=== PATIENT | male | born 1940 | race Hispanic/Latino ===

== ENCOUNTER 2018-10-21 10:30 | Inpatient (IN) | payer MEDICARE ==
[2018-10-21 10:39] VITALS: BMI 24.7
--- NOTE | 2018-10-21 10:39 | ED PDOC ---
Arrival/HPI - General Chief Complaint: Lower Extremity Problem/Injury Time Seen by Provider: 10/21/18 10:35 Historian: Patient - History of Present Illness Narrative History of Present Illness (Text): 10/21/18 10:38 77 y/o male with PMH of HTN presents to the ED c/o x bilateral lower extremity edema x 1 month. Also c/o pain and wounds to left lower extremity with drainage for the last week. Pt lives alone and has difficulty taking care of himself. Has not changed his socks in approximately 1 week. Admits to compliance with m edications but states he ran out of his unknown BP med, last dose yesterday. Denies fever, chills, numbness, weakness, paresthesias, dizziness, nausea, vomiting, chest pain, SOB, headache, vision changes, or any other associated symptoms. Past Medical History - Provider Review Nursing Documentation Reviewed: Yes - Infectious Disease Hx of Infectious Diseases: None - Tetanus Immunization Tetanus Immunization: Unknown - Cardiac Hx Hypertension: Yes - Neurological Hx Transient Ischemic Attacks (TIA): Yes (about one yr ago, blurred vision resolved) - Integumentary Other/Comment: 1cm x .5 cm hard growth on left cheek, 1.5cm round brown discoloration to left holiness, denies skin ca. Ball of left foot 1cm x .5 cm callous, browm discolored skin to right leg below knee, behind both ankles brown dry skin, brown dry skin between toes on both feet - Musculoskeletal/Rheumatological Hx Falls: No - Psychiatric Hx Psychophysiologic Disorder: No Hx Anxiety: No Hx Bipolar Disorder: No Hx Depression: No Hx Emotional Abuse: No Hx Hallucinations: No Hx Panic Disorder: No Hx Paranoia: No Hx Post Traumatic Stress Disorder: No Hx Psychosis: No Hx Physical Abuse: No Hx Schizophrenia: No Hx Sexual Abuse: No Hx Substance Use: No - Past Surgical History Past Surgical History: No Previous - Anesthesia Hx Anesthesia: No Hx Anesthesia Reactions: No Hx Malignant Hyperthermia: No - Suicidal Assessment Feels Threatened In Home Enviroment: No Family/Social History - Physician Review Nursing Documentation Reviewed: Yes Family/Social History: No Known Family HX Smoking Status: Never Smoked Hx Alcohol Use: No Hx Substance Use: No Hx Substance Use Treatment: No Allergies/Home Meds Allergies/Adverse Reactions: Allergies No Known Allergies Allergy (Verified 10/21/18 10:39) Home Medications: Home Meds Medication Instructions Recorded Confirmed Unobtainable 10/21/18 10/21/18 Review of Systems - Review of Systems Constitutional: Normal. absent: Fevers Eyes: Normal. absent: Vision Changes Respiratory: Normal. absent: SOB, Cough Cardiovascular: Normal. absent: Chest Pain, Palpitations, Syncope Gastrointestinal: Normal. absent: Abdominal Pain, Nausea, Vomiting, Appetite Changes Genitourinary Male: Normal. absent: Hematuria, Urinary Output Changes Musculoskeletal: Other (left leg pain) Skin: Ulcer, Other (swelling) Neurological: Normal. absent: Headache, Dizziness Physical Exam Vital Signs Reviewed: Yes Temperature: Afebrile Blood Pressure: Hypertensive Pulse: Regular Respiratory Rate: Normal Appearance: Positive for: Non-Toxic, Unkept, Uncomfortable Pain Distress: None Mental Status: Positive for: Alert and Oriented X 3 - Systems Exam Head: Present: Atraumatic, Normocephalic Pupils: Present: PERRL Extroacular Muscles: Present: EOMI, Other Conjunctiva: Present: Normal Mouth: Present: Moist Mucous Membranes Neck: Present: Normal Range of Motion. No: Meningeal Signs Respiratory/Chest: Present: Clear to Auscultation, Good Air Exchange. No: Respiratory Distress, Accessory Muscle Use Cardiovascular: Present: Regular Rate and Rhythm, Normal S1, S2, Peripheal Pulses Present, Other (2/6 systolic murmur over LUSB) Abdomen: Present: Normal Bowel Sounds. No: Tenderness, Distention, Peritoneal Signs, Rebound, Guarding Back: Present: Normal Inspection. No: CVA Tenderness Upper Extremity: Present: Normal Inspection, Normal ROM, NORMAL PULSES, Neurovascularly Intact, Capillary Refill < 2s. No: Cyanosis, Edema, Temperature Abnormalties Lower Extremity: Present: Edema (bilateral peripheral edema), NORMAL PULSES (pulses diminished bilaterally), Normal ROM, Tenderness (left dorsal foot and anterior tibia), Erythema (bilateral distal lower leg and feet; circumferential), Temperature Abnormalties (increased warmth to bilateral lower legs with associated erythema), Neurovascularly Intact, Capillary Refill < 2 s, Other (scaling to bilateral legs secondary to PVD and poor hygiene; maceration between toes bilaterall; onychomycosis bilaterally; multiple small ulcerations to bilateral lower legs L>R; left lower extremity weeping). No: Normal Inspection, CALF TENDERNESS Neurological: Present: GCS=15, Speech Normal, Motor Func Grossly Intact, Normal Sensory Function, Gait Normal Skin: Present: Warm, Dry, Normal Color. No: Rashes Psychiatric: Present: Alert, Oriented x 3, Normal Insight, Normal Concentration, Normal Affect, Normal Mood Medical Decision Making ED Course and Treatment: 10/21/18 11:21 Initial Plan: * CBC, CMP * Coags * UA * Venous Duplex Bilateral Lower Extremity * Podiatry consult * Labetalol 11:10 Spoke with podiatry, who will come to evaluate pt in ED, Dr. Matthews. 13:00 Bloodwork reviewed, unremarkable. No leukocytosis. BNP and troponin wnl. Venous duplex prelim read negative for DVT Pt evaluated by Cecil, podiatry resident who performed skin cleaning and dressing. PRITI ordered to evaluate for vascular status. Advised Jean Carlos and Jamari. Blood cultures ordered. 13:50 Patient's pressure unchanged with 20mg IV Labetalol, will give 10mg Hydralazine. Pt continues to be asymptomatic. No headache, dizziness, vision changes, nausea, vomiting, abdominal pain, numbness, weakness, paresthesias, or any other associated symptoms. Only c/o left leg pain. Spoke with hospitalist, Dr. Llanes who accepted patient for admission. Asked for ICU consult secondary to hypertension. Pt updated with change in disposition. EKG shows NSR at 79; no STEMI, nonspecific changes 14:03 ICU consult called, Dr. Rodas. Recommends nicardipine drip; will come to ED to evaluate patient. 14:10 Pt accepted to ICU with diagnosis of hypertensive urgency and cellulitis. - Lab Interpretations Lab Results: 10/21/18 11:20 10/21/18 11:20 Lab Results 10/21/18 11:30: Troponin I < 0.01 10/21/18 11:20: Sodium 144, Potassium 4.7, Chloride 108 H, Carbon Dioxide 29, Anion Gap 12, BUN 19, Creatinine 1.4, Est GFR ( Amer) 60, Est GFR (Non-Af Amer) 49, Random Glucose 85, Calcium 9.5, Phosphorus 3.1, Magnesium 2.2, Total Bilirubin 0.6, AST 20, ALT 20, Alkaline Phosphatase 81, NT-Pro-B Natriuret Pep 433, Total Protein 7.3, Albumin 4.2, Globulin 3.2, Albumin/Globulin Ratio 1.3 10/21/18 11:20: PT 12.5, INR 1.11, APTT 35.0 10/21/18 11:20: WBC 7.5, RBC 5.01, Hgb 14.1, Hct 43.0, MCV 85.8, MCH 28.1, MCHC 32.8, RDW 13.1, Plt Count 221, MPV 9.8, Neut % (Auto) 75.0 H, Lymph % (Auto) 13.4 L, [place] % (Auto) 8.5 H, Eos % (Auto) 3.0, Baso % (Auto) 0.1, Lymph # (Auto) 1.0 L, [place] # (Auto) 0.6, Eos # (Auto) 0.2, Baso # (Auto) 0.01, Absolute Neuts (auto) 5.59 I have reviewed the lab results: Yes Interpretation: All labs normal - EKG Interpretation EKG Interpretation (Text): 10/21/18 14:10 Rate 79; NSR; Normal Intervals; No STEMI, nonspecific ST/T wave changes Interpreted by ED Physician: Yes Type: 12 lead EKG Disposition/Present on Arrival - Present on Arrival Any Indicators Present on Arrival: No History of DVT/PE: No History of Uncontrolled Diabetes: No Urinary Catheter: No History Surgical Site Infection Following: None - Disposition Have Diagnosis and Disposition been Completed?: Yes Diagnosis: HTN (hypertension), Cellulitis Disposition: HOSPITALIZED Disposition Time: 14:00 Patient Plan: Admission Patient Problems: Current Active Problems Problem Status Onset Cellulitis Acute HTN (hypertension) Acute Condition: GUARDED
[2018-10-21 11:29] LABS: BASO # 0.01 K/mm3 (0.0-2.0); BASO % 0.1 % (0.0-3.0); EOS # 0.2 (0.0-0.7); HEMOGLOBIN 14.1 g/dL (14.0-18.0); LYMPH % 13.4 % (22.0-35.0); MEAN CELL VOLUME 85.8 fl (80.0-105.0); MEAN CORPUSCULAR HEMOGLOBIN 28.1 pg (25.0-35.0); MEAN CORPUSCULAR HGB CONC 32.8 g/dl (31.0-37.0); MEAN PLATELET VOLUME 9.8 fl (7.0-11.0); MONO # 0.6 (0.1-0.6); MONO % 8.5 % (1.0-6.0); RBC 5.01 10^6/uL (3.5-6.1); RED CELL DISTRIBUTION WIDTH 13.1 % (11.5-14.5); WHITE BLOOD COUNT 7.5 10^3/uL (4.5-11.0)
[2018-10-21] MEDS ORDERED: Labetalol 5mg/ml (4ml) IV STA (11:33)
[2018-10-21 11:37] LABS: INR 1.11; PROTHROMBIN TIME 12.5 SECONDS (9.4-12.5)
[2018-10-21 11:40] LABS: ALB/GLOB RATIO 1.3 (1.1-1.8); ALBUMIN 4.2 g/dL (3.0-4.8); CALCIUM 9.5 mg/dL (8.4-10.5)
[2018-10-21] MEDS ORDERED: Piperacillin/Tazobact 3.375 gm 100 ML IVPB STA (12:06)
[2018-10-21] MEDS ORDERED: Vancomycin 1gm in NS 250ml 1 GM/250 ML BAG IVPB STA (12:06)
--- NOTE | 2018-10-21 13:52 | CP.PCM.CON ---
<Cecil Cook - Last Filed: 10/22/18 10:23> History of Present Illness - History of Present Illness History of Present Illness: Podiatry consult note for Drs. Matthews/Karin 77 y/o male with PMHx of HTN and Diabetes presents to the ED c/o x bilateral lower extremity edema x 1 month. Patient evaluated with Dr. Frazier this morning. Patient states he lives alone at home and is unable to take care of his legs and feet. Patient also states he noted drainage from his feet at home. Patient denie s any fever, chills, numbness, weakness, paresthesias, dizziness, nausea, vomiting, chest pain, SOB, or any other associated symptoms. Review of Systems - Review of Systems All systems: reviewed and no additional remarkable complaints except Review of Systems: As per HPI Past Patient History - Infectious Disease Hx of Infectious Diseases: None - Tetanus Immunizations Tetanus Immunization: Unknown - Past Social History Smoking Status: Never Smoked - CARDIAC Hx Hypertension: Yes - NEUROLOGICAL Hx Transient Ischemic Attacks (TIA): Yes (about one yr ago, blurred vision resolved) - ENDOCRINE/METABOLIC Hx Diabetes Mellitus Type 2: Yes - INTEGUMENTARY Other/Comment: 1cm x .5 cm hard growth on left cheek, 1.5cm round brown discoloration to left quaker, denies skin ca. Ball of left foot 1cm x .5 cm callous, browm discolored skin to right leg below knee, behind both ankles brown dry skin, brown dry skin between toes on both feet - MUSCULOSKELETAL/RHEUMATOLOGICAL Hx Falls: No - PSYCHIATRIC Hx Psychophysiologic Disorder: No Hx Anxiety: No Hx Bipolar Disorder: No Hx Depression: No Hx Emotional Abuse: No Hx Hallucinations: No Hx Panic Symptoms: No Hx Paranoia: No Hx Post Traumatic Stress Disorder: No Hx Psychosis: No Hx Physical Abuse: No Hx Schizophrenia: No Hx Sexual Abuse: No Hx Substance Use: No - ANESTHESIA Hx Anesthesia: No Hx Anesthesia Reactions: No Hx Malignant Hyperthermia: No Meds Allergies/Adverse Reactions: Allergies Allergy/AdvReac Type Severity Reaction Status Date / Time No Known Allergies Allergy Verified 10/21/18 20:31 - Medications Medications: Current Medications Hydralazine HCl (Apresoline) 10 mg IVP ONCE ONE Stop: 10/21/18 13:52 Physical Exam - Constitutional Appears: Well, Non-toxic, No Acute Distress - Head Exam Head Exam: ATRAUMATIC, NORMOCEPHALIC - Extremities Exam Additional comments: Bilateral Lower Extremity Exam VASC: DP and PT 1/4 bilaterally, CFT delayed X 10, +2 pitting edema noted to the legs, and feet, TG warm to warm, increased to the L > R NEURO: diminished sensation noted bilaterally with positive tingling and numbness DERM: multiple superficial ulcerations with edema noted to bilateral lower extremity L > R, with dry excoriated lesions as well, positive weeping from the LLE, no purulence noted, significant interdigital maceration noted with positive malodor, positive erythema L> R from the tibial tuberosity extending distally to the feet, no wound probe to bone, no tunneling, no tracking ORTHO: pain on palpation to the lower extremity, unable to assess due to decreased patient cooperation - Neurological Exam Neurological exam: Alert, Oriented x3 - Psychiatric Exam Psychiatric exam: Normal Affect, Normal Mood Results - Vital Signs Recent Vital Signs: Last Vital Signs Temp 97.6 F 10/21/18 13:48 Pulse 82 10/21/18 13:48 Resp 18 10/21/18 13:48 BP 237/137 H 10/21/18 13:48 Pulse Ox 100 10/21/18 13:48 - Labs Result Diagrams: 10/22/18 05:00 10/22/18 06:30 Labs: Laboratory Results - last 24 hr 10/21/18 10/21/18 10/21/18 11:20 11:20 11:20 WBC 7.5 RBC 5.01 Hgb 14.1 Hct 43.0 MCV 85.8 MCH 28.1 MCHC 32.8 RDW 13.1 Plt Count 221 MPV 9.8 Neut % (Auto) 75.0 H Lymph % (Auto) 13.4 L [place] % (Auto) 8.5 H Eos % (Auto) 3.0 Baso % (Auto) 0.1 Lymph # (Auto) 1.0 L [place] # (Auto) 0.6 Eos # (Auto) 0.2 Baso # (Auto) 0.01 Absolute Neuts (auto) 5.59 PT 12.5 INR 1.11 APTT 35.0 Sodium 144 Potassium 4.7 Chloride 108 H Carbon Dioxide 29 Anion Gap 12 BUN 19 Creatinine 1.4 Est GFR ( Amer) 60 Est GFR (Non-Af Amer) 49 Random Glucose 85 Calcium 9.5 Phosphorus 3.1 Magnesium 2.2 Total Bilirubin 0.6 AST 20 ALT 20 Alkaline Phosphatase 81 Troponin I NT-Pro-B Natriuret Pep 433 Total Protein 7.3 Albumin 4.2 Globulin 3.2 Albumin/Globulin Ratio 1.3 10/21/18 11:30 WBC RBC Hgb Hct MCV MCH MCHC RDW Plt Count MPV Neut % (Auto) Lymph % (Auto) [place] % (Auto) Eos % (Auto) Baso % (Auto) Lymph # (Auto) [place] # (Auto) Eos # (Auto) Baso # (Auto) Absolute Neuts (auto) PT INR APTT Sodium Potassium Chloride Carbon Dioxide Anion Gap BUN Creatinine Est GFR ( Amer) Est GFR (Non-Af Amer) Random Glucose Calcium Phosphorus Magnesium Total Bilirubin AST ALT Alkaline Phosphatase Troponin I < 0.01 NT-Pro-B Natriuret Pep Total Protein Albumin Globulin Albumin/Globulin Ratio Assessment & Plan - Assessment and Plan (Free Text) Assessment: 77 y/o male patient seen and evaluated with bilateral lower extremity ulcerations, edema and erythema- positive signs of superficial skin infection noted Plan: Patient seen and evaluated Plan discussed with attending Dr. Matthews Ordered Bilateral Tib-Fib, Ankle and Foot X-rays Ordered Wound culture of the L foot Ordered PRITI/PVR Bilateral Lower Extremity Venous Duplex- Negative bilaterally Patient legs scrubbed and wounds dressed with xerform, betadine strips between digits, and dry sterile dressing Continue medical management as per primary Continue IV Abx Podiatry will continue to follow patient Thank you for the consult - Date & Time Date: 10/22/18 Time: 10:25 <Pipo Frazier - Last Filed: 10/23/18 07:29> Meds - Medications Medications: Current Medications Acetaminophen (Tylenol 325mg Tab) 650 mg PO Q6H PRN PRN Reason: Pain, Mild (1-3) Last Admin: 10/21/18 16:59 Dose: 650 mg Heparin Sodium (Porcine) (Heparin) 5,000 units SC Q8 [facility]; Protocol Last Admin: 10/23/18 07:10 Dose: 5,000 units Hydrochlorothiazide (Microzide) 12.5 mg PO DAILY [facility] Last Admin: 10/22/18 10:12 Dose: 12.5 mg Ceftaroline Fosamil 400 mg/ (Sodium Chloride) 100 mls @ 100 mls/hr IVPB Q12 [facility]; Protocol Stop: 10/28/18 22:01 Last Admin: 10/22/18 23:20 Dose: 100 mls/hr Insulin Human Regular (Humulin R Low) 0 units SC ACHS [facility]; Protocol Last Admin: 10/23/18 00:08 Dose: Not Given Lisinopril (Zestril) 20 mg PO DAILY [facility] Last Admin: 10/22/18 10:30 Dose: Not Given Pantoprazole Sodium (Protonix Ec Tab) 40 mg PO 0600 [facility] Last Admin: 10/23/18 07:10 Dose: 40 mg Tramadol HCl (Ultram) 50 mg PO TID PRN PRN Reason: Pain, severe (8-10) Results - Vital Signs Recent Vital Signs: Last Vital Signs Temp 99 F 10/23/18 00:01 Pulse 77 10/23/18 02:00 Resp 20 10/23/18 00:01 BP 152/94 H 10/23/18 00:01 Pulse Ox 96 10/22/18 18:00 - Labs Result Diagrams: 10/23/18 06:00 10/23/18 06:00 Labs: Laboratory Results - last 24 hr 10/22/18 10/22/18 10/22/18 05:00 11:46 21:33 WBC RBC Hgb Hct MCV MCH MCHC RDW Plt Count MPV Neut % (Auto) Lymph % (Auto) [place] % (Auto) Eos % (Auto) Baso % (Auto) Lymph # (Auto) [place] # (Auto) Eos # (Auto) Baso # (Auto) Absolute Neuts (auto) Neutrophils % (Manual) 91 H Lymphocytes % (Manual) 3 L Monocytes % (Manual) 6 Sodium Potassium Chloride Carbon Dioxide Anion Gap BUN Creatinine Est GFR ( Amer) Est GFR (Non-Af Amer) POC Glucose (mg/dL) 116 H 97 Random Glucose Calcium Total Bilirubin AST ALT Alkaline Phosphatase Total Protein Albumin Globulin Albumin/Globulin Ratio 10/23/18 10/23/18 06:00 06:00 WBC 9.3 D RBC 4.74 Hgb 13.0 L Hct 40.7 L MCV 85.9 MCH 27.4 MCHC 31.9 RDW 13.3 Plt Count 204 MPV 9.7 Neut % (Auto) 79.1 H Lymph % (Auto) 6.8 L [place] % (Auto) 12.2 H Eos % (Auto) 1.8 Baso % (Auto) 0.1 Lymph # (Auto) 0.6 L [place] # (Auto) 1.1 H Eos # (Auto) 0.2 Baso # (Auto) 0.01 Absolute Neuts (auto) 7.36 H Neutrophils % (Manual) Lymphocytes % (Manual) Monocytes % (Manual) Sodium 142 Potassium 4.3 Chloride 108 H Carbon Dioxide 25 Anion Gap 13 BUN 34 H Creatinine 3.0 H Est GFR ( Amer) 25 Est GFR (Non-Af Amer) 21 POC Glucose (mg/dL) Random Glucose 74 Calcium 9.0 Total Bilirubin 0.9 AST 46 ALT 29 Alkaline Phosphatase 61 Total Protein 6.5 Albumin 3.7 Globulin 2.8 Albumin/Globulin Ratio 1.3 Attending/Attestation - Attestation I have personally seen and examined this patient.: Yes I have fully participated in the care of the patient.: Yes I have reviewed all pertinent clinical information: Yes
[2018-10-21] MEDS: Nicardipine 20 MG/200 ML 20 MG/200 ML BAG IV PRN ×2 (14:27→21:02)
--- NOTE | 2018-10-21 14:34 | CP.PCM.CON ---
<Juani Zayas - Last Filed: 10/21/18 15:24> History of Present Illness - History of Present Illness History of Present Illness: Juani Zayas DO, PGY-2: ICU Consult Note for Dr. Rodas 77 year old male with a past medical history of hypertension and DM II who presents for one month of bilateral leg infection. He denies having any fever, chills, nausea, vomiting, or appetite changes. In the ED he was found to have an elevated blood pressure and was given 20 mg of IV labetalol with no response. ICU was consulted for hypertensive urgency. The patient denies chest pain, nausea, shortness of breath, visual disturbances, unilateral weakness or numbness. He reports taking a blood pressure medication, but cannot remember the name. We will admit him to the ICU for hypertensive urgency and start him on a Nicardipine drip. Otherwise, 12 point ROS is negative except as stated as above. PMH: hypertension, DM II PSH: Right eye surgery Allergies: NKA Social: Lives in apartment, denies alcohol, tobacco, or illicit drug use PMD: [facility] Shankar ([facility]) Review of Systems - Review of Systems All systems: reviewed and no additional remarkable complaints except (as per hpi) Past Patient History - Infectious Disease Hx of Infectious Diseases: None - Tetanus Immunizations Tetanus Immunization: Unknown - Past Social History Smoking Status: Never Smoked - CARDIAC Hx Hypertension: Yes - NEUROLOGICAL Hx Transient Ischemic Attacks (TIA): Yes (about one yr ago, blurred vision resolved) - ENDOCRINE/METABOLIC Hx Diabetes Mellitus Type 2: Yes - INTEGUMENTARY Other/Comment: 1cm x .5 cm hard growth on left cheek, 1.5cm round brown discolor ation to left oriental orthodox, denies skin ca. Ball of left foot 1cm x .5 cm callous, browm discolored skin to right leg below knee, behind both ankles brown dry skin, brown dry skin between toes on both feet - MUSCULOSKELETAL/RHEUMATOLOGICAL Hx Falls: No - PSYCHIATRIC Hx Psychophysiologic Disorder: No Hx Anxiety: No Hx Bipolar Disorder: No Hx Depression: No Hx Emotional Abuse: No Hx Hallucinations: No Hx Panic Symptoms: No Hx Paranoia: No Hx Post Traumatic Stress Disorder: No Hx Psychosis: No Hx Physical Abuse: No Hx Schizophrenia: No Hx Sexual Abuse: No Hx Substance Use: No - ANESTHESIA Hx Anesthesia: No Hx Anesthesia Reactions: No Hx Malignant Hyperthermia: No Meds Allergies/Adverse Reactions: Allergies Allergy/AdvReac Type Severity Reaction Status Date / Time No Known Allergies Allergy Verified 10/21/18 10:39 - Medications Medications: Current Medications Nicardipine HCl (Cardene Iv Premix) 20 mg in 200 mls @ 50 mls/hr IV .Q4H PRN; Protocol PRN Reason: TITRATE PER MD ORDER Physical Exam - Constitutional Appears: Unkempt - Head Exam Head Exam: ATRAUMATIC, NORMOCEPHALIC - Eye Exam Eye Exam: EOMI, Normal appearance - ENT Exam ENT Exam: Mucous Membranes Moist - Neck Exam Neck exam: Positive for: Normal Inspection - Respiratory Exam Respiratory Exam: Clear to Auscultation Bilateral, NORMAL BREATHING PATTERN. absent: Accessory Muscle Use - Cardiovascular Exam Cardiovascular Exam: +S1, +S2 Additional comments: systolic murmur 2/6 in right 2nd intercostal space - GI/Abdominal Exam GI & Abdominal Exam: Normal Bowel Sounds, Soft - Extremities Exam Extremities exam: Positive for: normal capillary refill, pedal pulses present Additional comments: celluitic changes of b/l lower extremities, interdigital area shows multiple small ulcerations - Neurological Exam Neurological exam: Alert, CN II-XII Intact, Oriented x3 - Psychiatric Exam Psychiatric exam: Normal Affect, Normal Mood - Skin Skin Exam: Dry, Intact, Normal Color, Warm Results - Vital Signs Recent Vital Signs: Last Vital Signs Temp 97.6 F 10/21/18 13:48 Pulse 85 10/21/18 14:15 Resp 18 10/21/18 13:48 BP 237/137 H 10/21/18 14:15 Pulse Ox 100 10/21/18 13:48 - Labs Result Diagrams: 10/21/18 11:20 10/21/18 11:20 Labs: Laboratory Results - last 24 hr 10/21/18 10/21/18 10/21/18 11:20 11:20 11:20 WBC 7.5 RBC 5.01 Hgb 14.1 Hct 43.0 MCV 85.8 MCH 28.1 MCHC 32.8 RDW 13.1 Plt Count 221 MPV 9.8 Neut % (Auto) 75.0 H Lymph % (Auto) 13.4 L [place] % (Auto) 8.5 H Eos % (Auto) 3.0 Baso % (Auto) 0.1 Lymph # (Auto) 1.0 L [place] # (Auto) 0.6 Eos # (Auto) 0.2 Baso # (Auto) 0.01 Absolute Neuts (auto) 5.59 PT 12.5 INR 1.11 APTT 35.0 Sodium 144 Potassium 4.7 Chloride 108 H Carbon Dioxide 29 Anion Gap 12 BUN 19 Creatinine 1.4 Est GFR ( Amer) 60 Est GFR (Non-Af Amer) 49 Random Glucose 85 Calcium 9.5 Phosphorus 3.1 Magnesium 2.2 Total Bilirubin 0.6 AST 20 ALT 20 Alkaline Phosphatase 81 Troponin I NT-Pro-B Natriuret Pep 433 Total Protein 7.3 Albumin 4.2 Globulin 3.2 Albumin/Globulin Ratio 1.3 10/21/18 11:30 WBC RBC Hgb Hct MCV MCH MCHC RDW Plt Count MPV Neut % (Auto) Lymph % (Auto) [place] % (Auto) Eos % (Auto) Baso % (Auto) Lymph # (Auto) [place] # (Auto) Eos # (Auto) Baso # (Auto) Absolute Neuts (auto) PT INR APTT Sodium Potassium Chloride Carbon Dioxide Anion Gap BUN Creatinine Est GFR ( Amer) Est GFR (Non-Af Amer) Random Glucose Calcium Phosphorus Magnesium Total Bilirubin AST ALT Alkaline Phosphatase Troponin I < 0.01 NT-Pro-B Natriuret Pep Total Protein Albumin Globulin Albumin/Globulin Ratio - EKG Data EKG comments: EKG shows LVH Assessment & Plan - Assessment and Plan (Free Text) Assessment: 77 year old male with a past medical history of hypertension and DM II who presented with 5 weeks of worsening, bilateral lower extremity infection and hypertensive urgency requiring Nicardipine drip warranting ICU admission. 1) Hypertensive urgency - Nicardipine drip - Lower BP to no more than 25% within the first hour, then to <160/100 mm Hg within the next 2 to 6 hours, then cautiously to target during the following 24 to 48 hour - Will restart home antihypertensive once confirmed by pharmacy - EKG shows LVH - initial troponin negative 2) Lower extremity cellulitis - As per podiatry and primary team - Agree with obtaining studies to evaluate for underlying PAD 3) Diabetes Mellitus II - ISS - Recommend obtaining HgbA1c and lipid panel 4) DVT/GI prophylaxis - Heparin 5,000 q8h - Protonix 40 mg Case was reviewed and discussed with <Malena Rodas - Last Filed: 10/21/18 15:47> Meds - Medications Medications: Current Medications Heparin Sodium (Porcine) (Heparin) 5,000 units SC Q8 ITZ; Protocol Nicardipine HCl (Cardene Iv Premix) 20 mg in 200 mls @ 50 mls/hr IV .Q4H PRN; Protocol PRN Reason: TITRATE PER MD ORDER Last Admin: 10/21/18 14:27 Dose: 50 mls/hr Vancomycin HCl (Vancomycin 1gm) 1 gm in 250 mls @ 167 mls/hr IVPB Q12H ITZ; Protocol Piperacillin Sod/Tazobactam Sod (Zosyn 3.375 In Ns 100ml) 100 mls @ 25 mls/hr IVPB Q8 ITZ; Protocol Stop: 10/22/18 09:59 Insulin Human Regular (Humulin R Low) 0 units SC ACHS ITZ; Protocol Pantoprazole Sodium (Protonix Ec Tab) 40 mg PO 0600 ITZ Results - Vital Signs Recent Vital Signs: Last Vital Signs Temp 97.6 F 10/21/18 14:55 Pulse 86 10/21/18 14:55 Resp 20 10/21/18 14:55 BP 183/123 H 10/21/18 14:55 Pulse Ox 95 10/21/18 14:55 - Labs Result Diagrams: 10/21/18 11:20 10/21/18 11:20 Labs: Laboratory Results - last 24 hr 10/21/18 10/21/18 10/21/18 11:20 11:20 11:20 WBC 7.5 RBC 5.01 Hgb 14.1 Hct 43.0 MCV 85.8 MCH 28.1 MCHC 32.8 RDW 13.1 Plt Count 221 MPV 9.8 Neut % (Auto) 75.0 H Lymph % (Auto) 13.4 L [place] % (Auto) 8.5 H Eos % (Auto) 3.0 Baso % (Auto) 0.1 Lymph # (Auto) 1.0 L [place] # (Auto) 0.6 Eos # (Auto) 0.2 Baso # (Auto) 0.01 Absolute Neuts (auto) 5.59 PT 12.5 INR 1.11 APTT 35.0 Sodium 144 Potassium 4.7 Chloride 108 H Carbon Dioxide 29 Anion Gap 12 BUN 19 Creatinine 1.4 Est GFR ( Amer) 60 Est GFR (Non-Af Amer) 49 Random Glucose 85 Calcium 9.5 Phosphorus 3.1 Magnesium 2.2 Total Bilirubin 0.6 AST 20 ALT 20 Alkaline Phosphatase 81 Troponin I NT-Pro-B Natriuret Pep 433 Total Protein 7.3 Albumin 4.2 Globulin 3.2 Albumin/Globulin Ratio 1.3 Triglycerides Cholesterol LDL Cholesterol Direct HDL Cholesterol Urine Color Urine Appearance Urine pH Ur Specific [place] Urine Protein Urine Glucose (UA) Urine Ketones Urine Blood Urine Nitrate Urine Bilirubin Urine Urobilinogen Ur Leukocyte Esterase Urine RBC Urine WBC Ur Epithelial Cells Urine Bacteria Urine Other Urine Opiates Screen Urine Methadone Screen Ur Barbiturates Screen Ur Phencyclidine Scrn Ur Amphetamines Screen U Benzodiazepines Scrn U Oth Cocaine Metabols U Cannabinoids Screen 10/21/18 10/21/18 10/21/18 11:30 11:30 14:30 WBC RBC Hgb Hct MCV MCH MCHC RDW Plt Count MPV Neut % (Auto) Lymph % (Auto) [place] % (Auto) Eos % (Auto) Baso % (Auto) Lymph # (Auto) [place] # (Auto) Eos # (Auto) Baso # (Auto) Absolute Neuts (auto) PT INR APTT Sodium Potassium Chloride Carbon Dioxide Anion Gap BUN Creatinine Est GFR ( Amer) Est GFR (Non-Af Amer) Random Glucose Calcium Phosphorus Magnesium Total Bilirubin AST ALT Alkaline Phosphatase Troponin I < 0.01 NT-Pro-B Natriuret Pep Total Protein Albumin Globulin Albumin/Globulin Ratio Triglycerides 166 H Cholesterol 191 LDL Cholesterol Direct 110 HDL Cholesterol 44 Urine Color Yellow Urine Appearance Clear Urine pH 7.5 Ur Specific [place] 1.020 Urine Protein 30 H Urine Glucose (UA) Negative Urine Ketones Negative Urine Blood Negative Urine Nitrate Negative Urine Bilirubin Negative Urine Urobilinogen 0.2 Ur Leukocyte Esterase Negative Urine RBC 0 - 2 Urine WBC 0 - 2 Ur Epithelial Cells None Urine Bacteria Few Urine Other Fiber Urine Opiates Screen Urine Methadone Screen Ur Barbiturates Screen Ur Phencyclidine Scrn Ur Amphetamines Screen U Benzodiazepines Scrn U Oth Cocaine Metabols U Cannabinoids Screen 10/21/18 14:40 WBC RBC Hgb Hct MCV MCH MCHC RDW Plt Count MPV Neut % (Auto) Lymph % (Auto) [place] % (Auto) Eos % (Auto) Baso % (Auto) Lymph # (Auto) [place] # (Auto) Eos # (Auto) Baso # (Auto) Absolute Neuts (auto) PT INR APTT Sodium Potassium Chloride Carbon Dioxide Anion Gap BUN Creatinine Est GFR ( Amer) Est GFR (Non-Af Amer) Random Glucose Calcium Phosphorus Magnesium Total Bilirubin AST ALT Alkaline Phosphatase Troponin I NT-Pro-B Natriuret Pep Total Protein Albumin Globulin Albumin/Globulin Ratio Triglycerides Cholesterol LDL Cholesterol Direct HDL Cholesterol Urine Color Urine Appearance Urine pH Ur Specific [place] Urine Protein Urine Glucose (UA) Urine Ketones Urine Blood Urine Nitrate Urine Bilirubin Urine Urobilinogen Ur Leukocyte Esterase Urine RBC Urine WBC Ur Epithelial Cells Urine Bacteria Urine Other Urine Opiates Screen Negative Urine Methadone Screen Negative Ur Barbiturates Screen Negative Ur Phencyclidine Scrn Negative Ur Amphetamines Screen Negative U Benzodiazepines Scrn Negative U Oth Cocaine Metabols Negative U Cannabinoids Screen Negative Addendum Addendum: 10/21/18 15:43 MICU Attending Addendum Patient seen and examined in the ED with housestaff agree with note above with the following add/exceptions 77M with hx of uncontrolled hypertension and DM II p/w bilateral lower extremity swelling found to be in hypertensive urgency. SBP was 180's and after labetolol IV BP went up to 237/130 HR 88. patient takes "one medication" bor BP BID that he did not take today Admits to ICU Nicardipine drip 25% decrease in MAP / SBP over the first 4 hours to SBP 180 Then goal 160 SBO Start lisinopril 10mg PO given proteinuria and diabetes Starts HCTZ 12.5 as I suspect his BP will require at least 2meds to control sliding scale insulin podiatry on consult for LE Rest of care above Malena Rodas MD MICU Attending
[2018-10-21 15:08] LABS: PH,URINE 7.5 (4.7-8.0); URINE BILIRUBIN NEGATIVE (NEGATIVE); URINE BLOOD NEGATIVE (NEGATIVE); URINE COLOR YELLOW (YELLOW); URINE GLUCOSE (UA) NEGATIVE (NEGATIVE); URINE LEUKOCYTE ESTERASE NEGATIVE Leu/uL (NEGATIVE); URINE PROTEIN 30 mg/dL (<30 mg/dL); URINE UROBILINOGEN 0.2 E.U./dL (<1 E.U./dL)
[2018-10-21 15:09] LABS: URINE APPEARANCE CLEAR (CLEAR)
[2018-10-21 15:09] LABS: BARBITURATES, UR NEGATIVE (NEGATIVE); BENZODIAZEPINES, UR NEGATIVE (NEGATIVE); OPIATES, UR NEGATIVE (NEGATIVE); PHENCYCLIDINE, UR NEGATIVE (NEGATIVE)
[2018-10-21 15:14] LABS: URINE RBC 0 - 2 /hpf (0-2); URINE WBC 0 - 2 /hpf (0-6)
[2018-10-21 15:15] LABS: URINE BACTERIA FEW /hpf
--- NOTE | 2018-10-21 15:26 | CP.PCM.HP ---
<Patrick Akins - Last Filed: 10/21/18 15:40> History of Present Illness - History of Present Illness History of Present Illness: Medicine H&P CC: b/l lower ext pain 77-year-old male with past medical history of hypertension and diabetes type 2 presents with bilateral lower extremity pain, erythema, and ulcer. Patient states that over the past 4-6 weeks the pain on both of his legs has become progressively worse. Now he also sees an area of erythema with worsening tenderness which prompted him to come to the emergency room. Patient states that the pain is worse in his left leg, and now there appears to be an ulcer on his foot. 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 Patient denies any fevers or chills. He denies this ever occurring before. 12 point ROS performed and negative other than stated above PMH: As above PSH: R eye surgery Allergies: No known allergies Medications: Patient states that he goes to [facility] in [place]. He claims that he takes 2 medications for blood pressure. I reached out to the pharmacy and they have no records on the patient. SH: Patient states that he lives alone, however a neighbor takes care of him. Denies any drinking, smoking, or drug usage FH: Denies PMD: Dr. Dickens?? in [place] Present on Admission - Present on Admission Any Indicators Present on Admission: No Review of Systems - Review of Systems All systems: reviewed and no additional remarkable complaints except Past Patient History - Infectious Disease Hx of Infectious Diseases: None - Tetanus Immunizations Tetanus Immunization: Unknown - Past Social History Smoking Status: Never Smoked - CARDIAC Hx Hypertension: Yes - NEUROLOGICAL Hx Transient Ischemic Attacks (TIA): Yes (about one yr ago, blurred vision resolved) - ENDOCRINE/METABOLIC Hx Diabetes Mellitus Type 2: Yes - INTEGUMENTARY Other/Comment: 1cm x .5 cm hard growth on left cheek, 1.5cm round brown discoloration to left religion, denies skin ca. Ball of left foot 1cm x .5 cm callous, browm discolored skin to right leg below knee, behind both ankles brown dry skin, brown dry skin between toes on both feet - MUSCULOSKELETAL/RHEUMATOLOGICAL Hx Falls: No - PSYCHIATRIC Hx Psychophysiologic Disorder: No Hx Anxiety: No Hx Bipolar Disorder: No Hx Depression: No Hx Emotional Abuse: No Hx Hallucinations: No Hx Panic Symptoms: No Hx Paranoia: No Hx Post Traumatic Stress Disorder: No Hx Psychosis: No Hx Physical Abuse: No Hx Schizophrenia: No Hx Sexual Abuse: No Hx Substance Use: No - ANESTHESIA Hx Anesthesia: No Hx Anesthesia Reactions: No Hx Malignant Hyperthermia: No Meds Allergies/Adverse Reactions: Allergies Allergy/AdvReac Type Severity Reaction Status Date / Time No Known Allergies Allergy Verified 10/21/18 20:31 Physical Exam - Constitutional Appears: No Acute Distress - Head Exam Head Exam: ATRAUMATIC, NORMOCEPHALIC - Eye Exam Eye Exam: EOMI, PERRL Pupil Exam: PERRL - ENT Exam ENT Exam: Mucous Membranes Moist - Respiratory Exam Respiratory Exam: Clear to Auscultation Bilateral. absent: Rales, Rhonchi, Wheezes - Cardiovascular Exam Cardiovascular Exam: REGULAR RHYTHM, RRR, +S1, +S2 - GI/Abdominal Exam GI & Abdominal Exam: Normal Bowel Sounds. absent: Soft - Extremities Exam Extremities exam: Positive for: pedal edema (1+). Negative for: calf tenderness Additional comments: Right lower extremity: Multiple scabs, some of been peeled off and have area of erythema, tender, warm to the touch, Faint DP pulses Left lower extremity: Multiple scabs, Area of erythema from the mid rizzo extending to the foot, superficial ulcer on the anterior portion of the foot, Faint DP pulses Results - Vital Signs Recent Vital Signs: Last Vital Signs Temp 97.6 F 10/21/18 14:55 Pulse 86 10/21/18 14:55 Resp 20 10/21/18 14:55 BP 183/123 H 10/21/18 14:55 Pulse Ox 95 10/21/18 14:55 - Labs Result Diagrams: 10/21/18 11:20 10/21/18 11:20 Labs: Laboratory Results - last 24 hr 10/21/18 10/21/18 10/21/18 11:20 11:20 11:20 WBC 7.5 RBC 5.01 Hgb 14.1 Hct 43.0 MCV 85.8 MCH 28.1 MCHC 32.8 RDW 13.1 Plt Count 221 MPV 9.8 Neut % (Auto) 75.0 H Lymph % (Auto) 13.4 L [place] % (Auto) 8.5 H Eos % (Auto) 3.0 Baso % (Auto) 0.1 Lymph # (Auto) 1.0 L [place] # (Auto) 0.6 Eos # (Auto) 0.2 Baso # (Auto) 0.01 Absolute Neuts (auto) 5.59 PT 12.5 INR 1.11 APTT 35.0 Sodium 144 Potassium 4.7 Chloride 108 H Carbon Dioxide 29 Anion Gap 12 BUN 19 Creatinine 1.4 Est GFR ( Amer) 60 Est GFR (Non-Af Amer) 49 Random Glucose 85 Calcium 9.5 Phosphorus 3.1 Magnesium 2.2 Total Bilirubin 0.6 AST 20 ALT 20 Alkaline Phosphatase 81 Troponin I NT-Pro-B Natriuret Pep 433 Total Protein 7.3 Albumin 4.2 Globulin 3.2 Albumin/Globulin Ratio 1.3 Urine Color Urine Appearance Urine pH Ur Specific [place] Urine Protein Urine Glucose (UA) Urine Ketones Urine Blood Urine Nitrate Urine Bilirubin Urine Urobilinogen Ur Leukocyte Esterase Urine RBC Urine WBC Ur Epithelial Cells Urine Bacteria Urine Other Urine Opiates Screen Urine Methadone Screen Ur Barbiturates Screen Ur Phencyclidine Scrn Ur Amphetamines Screen U Benzodiazepines Scrn U Oth Cocaine Metabols U Cannabinoids Screen 10/21/18 10/21/18 10/21/18 11:30 14:30 14:40 WBC RBC Hgb Hct MCV MCH MCHC RDW Plt Count MPV Neut % (Auto) Lymph % (Auto) [place] % (Auto) Eos % (Auto) Baso % (Auto) Lymph # (Auto) [place] # (Auto) Eos # (Auto) Baso # (Auto) Absolute Neuts (auto) PT INR APTT Sodium Potassium Chloride Carbon Dioxide Anion Gap BUN Creatinine Est GFR ( Amer) Est GFR (Non-Af Amer) Random Glucose Calcium Phosphorus Magnesium Total Bilirubin AST ALT Alkaline Phosphatase Troponin I < 0.01 NT-Pro-B Natriuret Pep Total Protein Albumin Globulin Albumin/Globulin Ratio Urine Color Yellow Urine Appearance Clear Urine pH 7.5 Ur Specific [place] 1.020 Urine Protein 30 H Urine Glucose (UA) Negative Urine Ketones Negative Urine Blood Negative Urine Nitrate Negative Urine Bilirubin Negative Urine Urobilinogen 0.2 Ur Leukocyte Esterase Negative Urine RBC 0 - 2 Urine WBC 0 - 2 Ur Epithelial Cells None Urine Bacteria Few Urine Other Fiber Urine Opiates Screen Negative Urine Methadone Screen Negative Ur Barbiturates Screen Negative Ur Phencyclidine Scrn Negative Ur Amphetamines Screen Negative U Benzodiazepines Scrn Negative U Oth Cocaine Metabols Negative U Cannabinoids Screen Negative Assessment & Plan - Assessment and Plan (Free Text) Assessment: 1. Hypertensive urgency 2. Bilateral lower extremity cellulitis and ulcer 3. Diabetes type 2 4. Hypertension In the emergency room patient was noted to have elevated blood pressure as high as 237/134. Patient was given hydralazine 10 mg and labetalol 20 mg stat however the patient remained hypertensive. Patient was started on Cardene drip. ICU was consulted and accepted the patient. We will continue to monitor the patient in the ICU. We will follow-up with secondary causes of hypertension workup including renal ultrasound, aldosterone/renin, and metanephrines. Echo has been ordered and will follow up. For his bilateral lower extremity cellulitis Vanco and Zosyn was started in the emergency room and will be continued. Infectious disease was consulted for the recommendations. Podiatry was consulted for the recommendations. Lower extremity ultrasound preliminary read was negative for DVT. We will follow-up duplex arterial of the lower legs. Follow-up tibia fibula, foot, ankle x-rays. Follow-up ESR, CRP, pro- calcitonin. For his history of diabetes type 2 I have placed the patient on insulin sliding scalelow-dose ACHS. Social work has been consulted regarding rachael aparicio as he is a and [facility]. Physical therapy evaluation ordered. Daily labs. Heart healthy diet. GIDVT ppx. We will continue to monitor for any changes. Case and plan was seen, reviewed, and discussed with Dr. Mccollum. <Caro Mccollum - Last Filed: 10/22/18 15:28> Results - Vital Signs Recent Vital Signs: Last Vital Signs Temp 97.6 F 10/21/18 14:55 Pulse 92 H 10/22/18 12:00 Resp 15 10/22/18 12:00 BP 143/73 10/22/18 12:00 Pulse Ox 82 L 10/22/18 12:00 - Labs Result Diagrams: 10/22/18 05:00 10/22/18 06:30 Labs: Laboratory Results - last 24 hr 10/21/18 10/21/18 10/21/18 11:00 11:30 11:30 WBC RBC Hgb Hct MCV MCH MCHC RDW Plt Count MPV Neut % (Auto) Lymph % (Auto) [place] % (Auto) Eos % (Auto) Baso % (Auto) Lymph # (Auto) [place] # (Auto) Eos # (Auto) Baso # (Auto) Absolute Neuts (auto) Neutrophils % (Manual) Lymphocytes % (Manual) Monocytes % (Manual) ESR 32 H Sodium Potassium Chloride Carbon Dioxide Anion Gap BUN Creatinine Est GFR ( Amer) Est GFR (Non-Af Amer) POC Glucose (mg/dL) Random Glucose Hemoglobin A1c Calcium Total Bilirubin AST ALT Alkaline Phosphatase C-Reactive Protein 27.10 H Total Protein Albumin Globulin Albumin/Globulin Ratio Triglycerides 166 H Cholesterol 191 LDL Cholesterol Direct 110 HDL Cholesterol 44 Procalcitonin < 0.05 L TSH 3rd Generation 10/21/18 10/21/18 10/21/18 11:30 11:30 16:49 WBC RBC Hgb Hct MCV MCH MCHC RDW Plt Count MPV Neut % (Auto) Lymph % (Auto) [place] % (Auto) Eos % (Auto) Baso % (Auto) Lymph # (Auto) [place] # (Auto) Eos # (Auto) Baso # (Auto) Absolute Neuts (auto) Neutrophils % (Manual) Lymphocytes % (Manual) Monocytes % (Manual) ESR Sodium Potassium Chloride Carbon Dioxide Anion Gap BUN Creatinine Est GFR ( Amer) Est GFR (Non-Af Amer) POC Glucose (mg/dL) 93 Random Glucose Hemoglobin A1c 5.3 Calcium Total Bilirubin AST ALT Alkaline Phosphatase C-Reactive Protein Total Protein Albumin Globulin Albumin/Globulin Ratio Triglycerides Cholesterol LDL Cholesterol Direct HDL Cholesterol Procalcitonin TSH 3rd Generation 1.63 10/21/18 10/22/18 10/22/18 21:12 05:00 06:30 WBC 12.1 H D RBC 5.03 Hgb 13.9 L Hct 42.4 MCV 84.3 MCH 27.6 MCHC 32.8 RDW 13.1 Plt Count 233 MPV 10.3 Neut % (Auto) 88.7 H Lymph % (Auto) 3.0 L [place] % (Auto) 7.8 H Eos % (Auto) 0.4 L Baso % (Auto) 0.1 Lymph # (Auto) 0.4 L [place] # (Auto) 1.0 H Eos # (Auto) 0.1 Baso # (Auto) 0.01 Absolute Neuts (auto) 10.75 H Neutrophils % (Manual) 91 H Lymphocytes % (Manual) 3 L Monocytes % (Manual) 6 ESR Sodium 141 Potassium 4.2 Chloride 105 Carbon Dioxide 27 Anion Gap 13 BUN 19 Creatinine 1.4 Est GFR ( Amer) 60 Est GFR (Non-Af Amer) 49 POC Glucose (mg/dL) 124 H Random Glucose 122 H Hemoglobin A1c Calcium 9.5 Total Bilirubin 1.0 AST 45 ALT 21 Alkaline Phosphatase 71 C-Reactive Protein Total Protein 7.4 Albumin 3.9 Globulin 3.6 Albumin/Globulin Ratio 1.1 Triglycerides Cholesterol LDL Cholesterol Direct HDL Cholesterol Procalcitonin TSH 3rd Generation 10/22/18 11:46 WBC RBC Hgb Hct MCV MCH MCHC RDW Plt Count MPV Neut % (Auto) Lymph % (Auto) [place] % (Auto) Eos % (Auto) Baso % (Auto) Lymph # (Auto) [place] # (Auto) Eos # (Auto) Baso # (Auto) Absolute Neuts (auto) Neutrophils % (Manual) Lymphocytes % (Manual) Monocytes % (Manual) ESR Sodium Potassium Chloride Carbon Dioxide Anion Gap BUN Creatinine Est GFR ( Amer) Est GFR (Non-Af Amer) POC Glucose (mg/dL) 116 H Random Glucose Hemoglobin A1c Calcium Total Bilirubin AST ALT Alkaline Phosphatase C-Reactive Protein Total Protein Albumin Globulin Albumin/Globulin Ratio Triglycerides Cholesterol LDL Cholesterol Direct HDL Cholesterol Procalcitonin TSH 3rd Generation Attending/Attestation - Attestation I have personally seen and examined this patient.: Yes I have fully participated in the care of the patient.: Yes I have reviewed all pertinent clinical information: Yes Notes (Text): 10/22/18 15:19 Attending note; Patient seen and examined with resident in ER. Patient is alert and awake. Denies any chest pain, shortness of breath. Denies any headache, nausea, vomiting Denies any fevers, chills. Denies any urinary, bowel symptoms. Complaining of both lower extremity swelling and redness for the past few weeks. Patient is a 77-year-old male with past medical history of hypertension and diabetes type 2 presents with bilateral lower extremity pain, erythema, and ulcer. Patient states that over the past 4-6 weeks the pain on both of his legs has become progressively worse. Patient was found to be hypertensive in ER. 1. Hypertensive urgency; patient got IV labetalol and hydralazine in the ER. Started on nifedipine. Monitor blood pressure closely. Patient will be monitored closely in ICU. Patient was not taking antihypertensive for a long time. 2. Bilateral Lower extremity cellulitis; started on IV vancomycin and IV Zosyn. Lower extremity Doppler ordered. 3. Podiatry evaluation requested for local wound care. 4. Noncompliance with follow-up; medication compliance insisted in detail. 5. Elevated blood sugar; hemoglobin A1c ordered. Dietary education given. Monitor closely in ICU. Upon discharge patient will be referred to 10/22/18 15:28
[2018-10-21] MEDS: Insulin Reg-LOW-Coverage SC SCH (16:49)
--- NOTE | 2018-10-21 18:11 | US ---
Date of service: 10/21/2018 PROCEDURE: Ultrasound of the Kidneys HISTORY: hypertensive urgency COMPARISON: None available. TECHNIQUE: Grayscale imaging was performed. FINDINGS: RIGHT KIDNEY: Measures: 9.3 cm. Normal in size, contour and echogenicity. No stone, solid mass lesion or hydronephrosis visualized. LEFT KIDNEY: Measures: 9.1 cm. Normal in size, contour and echogenicity. No stone, solid mass lesion or hydronephrosis visualized. OTHER FINDINGS: None. IMPRESSION: Unremarkable renal sonogram.
--- NOTE | 2018-10-21 19:10 | CARD ---
APPROVED REPORT Date of service: 10/21/2018 EKG Measurement Heart [id number] <Conclusion> Normal sinus rhythm Voltage criteria for left ventricular hypertrophy Nonspecific ST and T wave abnormality Abnormal ECG
[2018-10-21] MEDS ORDERED: Vancomycin 1gm in NS 250ml 1 GM/250 ML BAG IVPB SCH (22:00)
[2018-10-21] MEDS ORDERED: Piperacillin/Tazobact 3.375 gm 100 ML IVPB SCH (22:00)
[2018-10-21] MEDS ORDERED: DiphenhydrAMINE 50 mg/ml Inj IVP STA (22:06)
[2018-10-21] MEDS ORDERED: Morphine 2 mg/ml ISec IVP STA (23:48)
[2018-10-22] MEDS: Insulin Reg-LOW-Coverage SC SCH ×4 (00:02→17:17)
[2018-10-22] MEDS ORDERED: Influenza Vaccine 60 mcg/0.5 mL SYR (4YR UP) IM ONE (00:33)
[2018-10-22] MEDS ORDERED: Pneumococcal 23-Valent Vaccine IM ONE (00:33)
[2018-10-22] MEDS: HYDROmorphone 1 mg/ml ISec IVP PRN ×2 (00:41→04:40)
[2018-10-22] MEDS: Nicardipine 20 MG/200 ML 20 MG/200 ML BAG IV PRN (05:57)
[2018-10-22] MEDS: Pantoprazole 40 mg EC Tab PO SCH (06:02)
[2018-10-22 06:36] LABS: BASO # 0.01 K/mm3 (0.0-2.0); BASO % 0.1 % (0.0-3.0); EOS # 0.1 (0.0-0.7); EOS % 0.4 % (1.5-5.0); HEMOGLOBIN 13.9 g/dL (14.0-18.0); LYMPH # 0.4 (1.2-3.4); MEAN CELL VOLUME 84.3 fl (80.0-105.0); MEAN CORPUSCULAR HEMOGLOBIN 27.6 pg (25.0-35.0); MEAN CORPUSCULAR HGB CONC 32.8 g/dl (31.0-37.0); MEAN PLATELET VOLUME 10.3 fl (7.0-11.0); MONO % 7.8 % (1.0-6.0); PLATELET COUNT 233 10^3/uL (120.0-450.0); RBC 5.03 10^6/uL (3.5-6.1); RED CELL DISTRIBUTION WIDTH 13.1 % (11.5-14.5); WHITE BLOOD COUNT 12.1 10^3/uL (4.5-11.0)
[2018-10-22 07:14] LABS: ALB/GLOB RATIO 1.1 (1.1-1.8); ALBUMIN 3.9 g/dL (3.0-4.8); CALCIUM 9.5 mg/dL (8.4-10.5)
[2018-10-22 08:51] LABS: LYMPHOCYTE 3 % (22.0-35.0); MONOCYTE 6 % (1.0-6.0); NEUTROPHIL 91 % (50.0-70.0)
--- NOTE | 2018-10-22 08:56 | CP.CCUPN ---
<Archie Cho - Last Filed: 10/22/18 08:56> CCU Subjective - Physician Review Subjective (Free Text): Archie Cho DO. Critical Care Progress note Patient seen and examined at bedside. He reported not getting enough sleep last nigh due to back pain that is partially improved with pain meds. He denied headache, dizziness, chest pain, palpitations, fever, chills or change in bowel habits. CCU Objective - Vital Signs / Intake & Output Vital Signs (Last 4 hours): Vital Signs Pulse Resp BP Pulse Ox 10/22/18 07:00 85 15 128/78 96 10/22/18 06:50 85 16 94 L 10/22/18 06:40 87 16 95 10/22/18 06:30 84 16 136/82 95 10/22/18 06:20 87 16 96 10/22/18 06:10 86 15 96 10/22/18 06:00 158/88 H 97 10/22/18 05:50 87 15 95 10/22/18 05:40 93 H 18 97 10/22/18 05:30 88 14 136/79 96 10/22/18 05:20 98 H 27 H 95 10/22/18 05:10 95 H 19 99 10/22/18 05:00 87 14 154/94 H 97 Intake and Output (Last 8hrs): Intake & Output 10/21/18 10/22/18 10/22/18 22:59 06:59 14:59 Intake Total 740 200 Balance 740 200 Weight 140 lb Intake: IV 500 200 Right Antecubital 300 Oral 240 Other: Voiding Method Urinal # Voids Urine, Voided 200 # Bowel Movements 0 - Physical Exam Head: Positive for: Atraumatic, Normocephalic Pupils: Positive for: PERRL Extroacular Muscles: Positive for: EOMI, Other Conjunctiva: Positive for: Normal Mouth: Positive for: Moist Mucous Membranes Neck: Positive for: Normal Range of Motion. Negative for: Meningeal Signs Respiratory/Chest: Positive for: Clear to Auscultation, Good Air Exchange. Negative for: Respiratory Distress, Accessory Muscle Use Cardiovascular: Positive for: Regular Rate and Rhythm, Normal S1, S2, Peripheal Pulses Present, Other (2/6 systolic murmur over LUSB) Abdomen: Positive for: Normal Bowel Sounds. Negative for: Tenderness, Distention, Peritoneal Signs, Rebound, Guarding Back: Positive for: Normal Inspection. Negative for: CVA Tenderness Upper Extremity: Positive for: Normal Inspection, Normal ROM, NORMAL PULSES, Neurovascularly Intact, Capillary Refill < 2s. Negative for: Cyanosis, Edema, Temperature Abnormalties Lower Extremity: Positive for: Edema (bilateral peripheral edema), NORMAL PULSES (pulses diminished bilaterally), Normal ROM, Tenderness (left dorsal foot and anterior tibia), Erythema (bilateral distal lower leg and feet; circumferential), Temperature Abnormalties (increased warmth to bilateral lower legs with associated erythema), Neurovascularly Intact, Capillary Refill < 2 s, Other (scaling to bilateral legs secondary to PVD and poor hygiene; maceration between toes bilaterall; onychomycosis bilaterally; multiple small ulcerations to bilateral lower legs L>R; left lower extremity weeping). Negative for: Normal Inspection, CALF TENDERNESS Neurological: Positive for: GCS=15, Speech Normal, Motor Func Grossly Intact, Normal Sensory Function, Gait Normal Skin: Positive for: Warm, Dry, Erythematous (left LE ), Other (severe bilateral skin changes b/l LE). Negative for: Rashes Psychiatric: Positive for: Alert, Oriented x 3, Normal Insight, Normal Concentration, Normal Affect, Normal Mood - Medications Active Medications: Active Medications Generic Name Dose Route Start Last Admin Trade Name Freq PRN Reason Stop Dose Admin Acetaminophen 650 mg 10/21/18 16:46 10/21/18 16:59 Tylenol 325mg Tab PO 650 mg Q6H PRN Administration Pain, Mild (1-3) Heparin Sodium (Porcine) 5,000 units 10/21/18 22:00 10/22/18 06:02 Heparin SC 5,000 units Q8 ITZ Administration Protocol Hydrochlorothiazide 12.5 mg 10/22/18 09:00 Microzide PO DAILY [facility] Hydromorphone HCl 1 mg 10/22/18 00:29 10/22/18 04:40 Dilaudid IVP 1 mg Q4H PRN Administration Pain, severe (8-10) Nicardipine HCl 20 mg in 200 mls @ 50 mls/hr 10/21/18 14:03 10/22/18 05:57 Cardene Iv Premix IV 2.5 mg/hr .Q4H PRN 25 mls/hr TITRATE PER MD ORDER Administration Protocol 5 MG/HR Ceftaroline Fosamil 400 mg/ 100 mls @ 100 mls/hr 10/21/18 22:00 10/21/18 21:01 Sodium Chloride IVPB 10/28/18 22:01 100 mls/hr Q12 ITZ Administration Protocol Insulin Human Regular 0 units 10/21/18 16:30 10/22/18 00:02 Humulin R Low SC Not Given ACHS ITZ Protocol Lisinopril 20 mg 10/22/18 09:00 Zestril PO DAILY ITZ Pantoprazole Sodium 40 mg 10/22/18 06:00 10/22/18 06:02 Protonix Ec Tab PO 40 mg 0600 ITZ Administration - Patient Studies Lab Studies: Lab Studies 10/22/18 10/22/18 10/21/18 Range/Units 06:30 05:00 21:12 WBC 12.1 H D (4.5-11.0) 10^3/uL RBC 5.03 (3.5-6.1) 10^6/uL Hgb 13.9 L (14.0-18.0) g/dL Hct 42.4 (42.0-52.0) % MCV 84.3 (80.0-105.0) fl MCH 27.6 (25.0-35.0) pg MCHC 32.8 (31.0-37.0) g/dl RDW 13.1 (11.5-14.5) % Plt Count 233 (120.0-450.0) 10^3/uL MPV 10.3 (7.0-11.0) fl Neut % (Auto) 88.7 H (50.0-68.0) % Lymph % (Auto) 3.0 L (22.0-35.0) % [place] % (Auto) 7.8 H (1.0-6.0) % Eos % (Auto) 0.4 L (1.5-5.0) % Baso % (Auto) 0.1 (0.0-3.0) % Lymph # (Auto) 0.4 L (1.2-3.4) [place] # (Auto) 1.0 H (0.1-0.6) Eos # (Auto) 0.1 (0.0-0.7) Baso # (Auto) 0.01 (0.0-2.0) K/mm3 Absolute Neuts (auto) 10.75 H (1.4-6.5) Neutrophils % (Manual) 91 H (50.0-70.0) % Lymphocytes % (Manual) 3 L (22.0-35.0) % Monocytes % (Manual) 6 (1.0-6.0) % ESR (0.00-15.0) mm/hr PT (9.4-12.5) SECONDS INR APTT (26.9-38.3) Seconds Sodium 141 (132-148) mmol/L Potassium 4.2 (3.6-5.0) mmol/L Chloride 105 (98-107) mmol/L Carbon Dioxide 27 (21-33) mmol/L Anion Gap 13 (10-20) BUN 19 (7-21) mg/dL Creatinine 1.4 (0.8-1.5) mg/dl Est GFR ( Amer) 60 Est GFR (Non-Af Amer) 49 POC Glucose (mg/dL) 124 H (65-110) mg/dL Random Glucose 122 H (70-110) mg/dL Hemoglobin A1c (4.2-6.5) % Calcium 9.5 (8.4-10.5) mg/dL Phosphorus (2.5-4.5) mg/dL Magnesium (1.7-2.2) mg/dL Total Bilirubin 1.0 (0.2-1.3) mg/dL AST 45 (17-59) U/L ALT 21 (7-56) U/L Alkaline Phosphatase 71 (38-126) U/L Troponin I ng/mL C-Reactive Protein (0.0-9.9) mg/L NT-Pro-B Natriuret Pep (0-450) pg/mL Total Protein 7.4 (5.8-8.3) g/dL Albumin 3.9 (3.0-4.8) g/dL Globulin 3.6 gm/dL Albumin/Globulin Ratio 1.1 (1.1-1.8) Triglycerides (35-160) mg/dL Cholesterol (130-200) mg/dL LDL Cholesterol Direct (0-129) mg/dL HDL Cholesterol (29-60) mg/dL Procalcitonin (0.19-0.49) NG/ML TSH 3rd Generation (0.46-4.68) mIU/mL Urine Color (YELLOW) Urine Appearance (CLEAR) Urine pH (4.7-8.0) Ur Specific [place] (1.005-1.035) Urine Protein (<30 mg/dL) mg/dL Urine Glucose (UA) (NEGATIVE) mg/dL Urine Ketones (NEGATIVE) mg/dL Urine Blood (NEGATIVE) Urine Nitrate (NEGATIVE) Urine Bilirubin (NEGATIVE) Urine Urobilinogen (<1 E.U./dL) E.U./dL Ur Leukocyte Esterase (NEGATIVE) Agustin/uL Urine RBC (0-2) /hpf Urine WBC (0-6) /hpf Ur Epithelial Cells (0-5) /hpf Urine Bacteria (NONE) /hpf Urine Other /hpf Urine Opiates Screen (NEGATIVE) Urine Methadone Screen (NEGATIVE) Ur Barbiturates Screen (NEGATIVE) Ur Phencyclidine Scrn (NEGATIVE) Ur Amphetamines Screen (NEGATIVE) U Benzodiazepines Scrn (NEGATIVE) U Oth Cocaine Metabols (NEGATIVE) U Cannabinoids Screen (NEGATIVE) 10/21/18 10/21/18 10/21/18 Range/Units 16:49 14:40 14:30 WBC (4.5-11.0) 10^3/uL RBC (3.5-6.1) 10^6/uL Hgb (14.0-18.0) g/dL Hct (42.0-52.0) % MCV (80.0-105.0) fl MCH (25.0-35.0) pg MCHC (31.0-37.0) g/dl RDW (11.5-14.5) % Plt Count (120.0-450.0) 10^3/uL MPV (7.0-11.0) fl Neut % (Auto) (50.0-68.0) % Lymph % (Auto) (22.0-35.0) % [place] % (Auto) (1.0-6.0) % Eos % (Auto) (1.5-5.0) % Baso % (Auto) (0.0-3.0) % Lymph # (Auto) (1.2-3.4) [place] # (Auto) (0.1-0.6) Eos # (Auto) (0.0-0.7) Baso # (Auto) (0.0-2.0) K/mm3 Absolute Neuts (auto) (1.4-6.5) Neutrophils % (Manual) (50.0-70.0) % Lymphocytes % (Manual) (22.0-35.0) % Monocytes % (Manual) (1.0-6.0) % ESR (0.00-15.0) mm/hr PT (9.4-12.5) SECONDS INR APTT (26.9-38.3) Seconds Sodium (132-148) mmol/L Potassium (3.6-5.0) mmol/L Chloride (98-107) mmol/L Carbon Dioxide (21-33) mmol/L Anion Gap (10-20) BUN (7-21) mg/dL Creatinine (0.8-1.5) mg/dl Est GFR ( Amer) Est GFR (Non-Af Amer) POC Glucose (mg/dL) 93 (65-110) mg/dL Random Glucose (70-110) mg/dL Hemoglobin A1c (4.2-6.5) % Calcium (8.4-10.5) mg/dL Phosphorus (2.5-4.5) mg/dL Magnesium (1.7-2.2) mg/dL Total Bilirubin (0.2-1.3) mg/dL AST (17-59) U/L ALT (7-56) U/L Alkaline Phosphatase (38-126) U/L Troponin I ng/mL C-Reactive Protein (0.0-9.9) mg/L NT-Pro-B Natriuret Pep (0-450) pg/mL Total Protein (5.8-8.3) g/dL Albumin (3.0-4.8) g/dL Globulin gm/dL Albumin/Globulin Ratio (1.1-1.8) Triglycerides (35-160) mg/dL Cholesterol (130-200) mg/dL LDL Cholesterol Direct (0-129) mg/dL HDL Cholesterol (29-60) mg/dL Procalcitonin (0.19-0.49) NG/ML TSH 3rd Generation (0.46-4.68) mIU/mL Urine Color Yellow (YELLOW) Urine Appearance Clear (CLEAR) Urine pH 7.5 (4.7-8.0) Ur Specific [place] 1.020 (1.005-1.035) Urine Protein 30 H (<30 mg/dL) mg/dL Urine Glucose (UA) Negative (NEGATIVE) mg/dL Urine Ketones Negative (NEGATIVE) mg/dL Urine Blood Negative (NEGATIVE) Urine Nitrate Negative (NEGATIVE) Urine Bilirubin Negative (NEGATIVE) Urine Urobilinogen 0.2 (<1 E.U./dL) E.U./dL Ur Leukocyte Esterase Negative (NEGATIVE) Agusitn/uL Urine RBC 0 - 2 (0-2) /hpf Urine WBC 0 - 2 (0-6) /hpf Ur Epithelial Cells None (0-5) /hpf Urine Bacteria Few (NONE) /hpf Urine Other Fiber /hpf Urine Opiates Screen Negative (NEGATIVE) Urine Methadone Screen Negative (NEGATIVE) Ur Barbiturates Screen Negative (NEGATIVE) Ur Phencyclidine Scrn Negative (NEGATIVE) Ur Amphetamines Screen Negative (NEGATIVE) U Benzodiazepines Scrn Negative (NEGATIVE) U Oth Cocaine Metabols Negative (NEGATIVE) U Cannabinoids Screen Negative (NEGATIVE) 10/21/18 10/21/18 10/21/18 Range/Units 11:30 11:30 11:30 WBC (4.5-11.0) 10^3/uL RBC (3.5-6.1) 10^6/uL Hgb (14.0-18.0) g/dL Hct (42.0-52.0) % MCV (80.0-105.0) fl MCH (25.0-35.0) pg MCHC (31.0-37.0) g/dl RDW (11.5-14.5) % Plt Count (120.0-450.0) 10^3/uL MPV (7.0-11.0) fl Neut % (Auto) (50.0-68.0) % Lymph % (Auto) (22.0-35.0) % [place] % (Auto) (1.0-6.0) % Eos % (Auto) (1.5-5.0) % Baso % (Auto) (0.0-3.0) % Lymph # (Auto) (1.2-3.4) [place] # (Auto) (0.1-0.6) Eos # (Auto) (0.0-0.7) Baso # (Auto) (0.0-2.0) K/mm3 Absolute Neuts (auto) (1.4-6.5) Neutrophils % (Manual) (50.0-70.0) % Lymphocytes % (Manual) (22.0-35.0) % Monocytes % (Manual) (1.0-6.0) % ESR (0.00-15.0) mm/hr PT (9.4-12.5) SECONDS INR APTT (26.9-38.3) Seconds Sodium (132-148) mmol/L Potassium (3.6-5.0) mmol/L Chloride (98-107) mmol/L Carbon Dioxide (21-33) mmol/L Anion Gap (10-20) BUN (7-21) mg/dL Creatinine (0.8-1.5) mg/dl Est GFR ( Amer) Est GFR (Non-Af Amer) POC Glucose (mg/dL) (65-110) mg/dL Random Glucose (70-110) mg/dL Hemoglobin A1c 5.3 (4.2-6.5) % Calcium (8.4-10.5) mg/dL Phosphorus (2.5-4.5) mg/dL Magnesium (1.7-2.2) mg/dL Total Bilirubin (0.2-1.3) mg/dL AST (17-59) U/L ALT (7-56) U/L Alkaline Phosphatase (38-126) U/L Troponin I ng/mL C-Reactive Protein 27.10 H (0.0-9.9) mg/L NT-Pro-B Natriuret Pep (0-450) pg/mL Total Protein (5.8-8.3) g/dL Albumin (3.0-4.8) g/dL Globulin gm/dL Albumin/Globulin Ratio (1.1-1.8) Triglycerides 166 H (35-160) mg/dL Cholesterol 191 (130-200) mg/dL LDL Cholesterol Direct 110 (0-129) mg/dL HDL Cholesterol 44 (29-60) mg/dL Procalcitonin (0.19-0.49) NG/ML TSH 3rd Generation 1.63 (0.46-4.68) mIU/mL Urine Color (YELLOW) Urine Appearance (CLEAR) Urine pH (4.7-8.0) Ur Specific [place] (1.005-1.035) Urine Protein (<30 mg/dL) mg/dL Urine Glucose (UA) (NEGATIVE) mg/dL Urine Ketones (NEGATIVE) mg/dL Urine Blood (NEGATIVE) Urine Nitrate (NEGATIVE) Urine Bilirubin (NEGATIVE) Urine Urobilinogen (<1 E.U./dL) E.U./dL Ur Leukocyte Esterase (NEGATIVE) Agustin/uL Urine RBC (0-2) /hpf Urine WBC (0-6) /hpf Ur Epithelial Cells (0-5) /hpf Urine Bacteria (NONE) /hpf Urine Other /hpf Urine Opiates Screen (NEGATIVE) Urine Methadone Screen (NEGATIVE) Ur Barbiturates Screen (NEGATIVE) Ur Phencyclidine Scrn (NEGATIVE) Ur Amphetamines Screen (NEGATIVE) U Benzodiazepines Scrn (NEGATIVE) U Oth Cocaine Metabols (NEGATIVE) U Cannabinoids Screen (NEGATIVE) 10/21/18 10/21/18 10/21/18 Range/Units 11:30 11:30 11:20 WBC (4.5-11.0) 10^3/uL RBC (3.5-6.1) 10^6/uL Hgb (14.0-18.0) g/dL Hct (42.0-52.0) % MCV (80.0-105.0) fl MCH (25.0-35.0) pg MCHC (31.0-37.0) g/dl RDW (11.5-14.5) % Plt Count (120.0-450.0) 10^3/uL MPV (7.0-11.0) fl Neut % (Auto) (50.0-68.0) % Lymph % (Auto) (22.0-35.0) % [place] % (Auto) (1.0-6.0) % Eos % (Auto) (1.5-5.0) % Baso % (Auto) (0.0-3.0) % Lymph # (Auto) (1.2-3.4) [place] # (Auto) (0.1-0.6) Eos # (Auto) (0.0-0.7) Baso # (Auto) (0.0-2.0) K/mm3 Absolute Neuts (auto) (1.4-6.5) Neutrophils % (Manual) (50.0-70.0) % Lymphocytes % (Manual) (22.0-35.0) % Monocytes % (Manual) (1.0-6.0) % ESR 32 H (0.00-15.0) mm/hr PT (9.4-12.5) SECONDS INR APTT (26.9-38.3) Seconds Sodium 144 (132-148) mmol/L Potassium 4.7 (3.6-5.0) mmol/L Chloride 108 H (98-107) mmol/L Carbon Dioxide 29 (21-33) mmol/L Anion Gap 12 (10-20) BUN 19 (7-21) mg/dL Creatinine 1.4 (0.8-1.5) mg/dl Est GFR ( Amer) 60 Est GFR (Non-Af Amer) 49 POC Glucose (mg/dL) (65-110) mg/dL Random Glucose 85 (70-110) mg/dL Hemoglobin A1c (4.2-6.5) % Calcium 9.5 (8.4-10.5) mg/dL Phosphorus 3.1 (2.5-4.5) mg/dL Magnesium 2.2 (1.7-2.2) mg/dL Total Bilirubin 0.6 (0.2-1.3) mg/dL AST 20 (17-59) U/L ALT 20 (7-56) U/L Alkaline Phosphatase 81 (38-126) U/L Troponin I < 0.01 ng/mL C-Reactive Protein (0.0-9.9) mg/L NT-Pro-B Natriuret Pep 433 (0-450) pg/mL Total Protein 7.3 (5.8-8.3) g/dL Albumin 4.2 (3.0-4.8) g/dL Globulin 3.2 gm/dL Albumin/Globulin Ratio 1.3 (1.1-1.8) Triglycerides (35-160) mg/dL Cholesterol (130-200) mg/dL LDL Cholesterol Direct (0-129) mg/dL HDL Cholesterol (29-60) mg/dL Procalcitonin (0.19-0.49) NG/ML TSH 3rd Generation (0.46-4.68) mIU/mL Urine Color (YELLOW) Urine Appearance (CLEAR) Urine pH (4.7-8.0) Ur Specific [place] (1.005-1.035) Urine Protein (<30 mg/dL) mg/dL Urine Glucose (UA) (NEGATIVE) mg/dL Urine Ketones (NEGATIVE) mg/dL Urine Blood (NEGATIVE) Urine Nitrate (NEGATIVE) Urine Bilirubin (NEGATIVE) Urine Urobilinogen (<1 E.U./dL) E.U./dL Ur Leukocyte Esterase (NEGATIVE) [place]ust[place]/uL Urine RBC (0-2) /hpf Urine WBC (0-6) /hpf Ur Epithelial Cells (0-5) /hpf Urine Bacteria (NONE) /hpf Urine Other /hpf Urine Opiates Screen (NEGATIVE) Urine Methadone Screen (NEGATIVE) Ur Barbiturates Screen (NEGATIVE) Ur Phencyclidine Scrn (NEGATIVE) Ur Amphetamines Screen (NEGATIVE) U Benzodiazepines Scrn (NEGATIVE) U Oth Cocaine Metabols (NEGATIVE) U Cannabinoids Screen (NEGATIVE) 10/21/18 10/21/18 10/21/18 Range/Units 11:20 11:20 11:00 WBC 7.5 (4.5-11.0) 10^3/uL RBC 5.01 (3.5-6.1) 10^6/uL Hgb 14.1 (14.0-18.0) g/dL Hct 43.0 (42.0-52.0) % MCV 85.8 (80.0-105.0) fl MCH 28.1 (25.0-35.0) pg MCHC 32.8 (31.0-37.0) g/dl RDW 13.1 (11.5-14.5) % Plt Count 221 (120.0-450.0) 10^3/uL MPV 9.8 (7.0-11.0) fl Neut % (Auto) 75.0 H (50.0-68.0) % Lymph % (Auto) 13.4 L (22.0-35.0) % [place] % (Auto) 8.5 H (1.0-6.0) % Eos % (Auto) 3.0 (1.5-5.0) % Baso % (Auto) 0.1 (0.0-3.0) % Lymph # (Auto) 1.0 L (1.2-3.4) [place] # (Auto) 0.6 (0.1-0.6) Eos # (Auto) 0.2 (0.0-0.7) Baso # (Auto) 0.01 (0.0-2.0) K/mm3 Absolute Neuts (auto) 5.59 (1.4-6.5) Neutrophils % (Manual) (50.0-70.0) % Lymphocytes % (Manual) (22.0-35.0) % Monocytes % (Manual) (1.0-6.0) % ESR (0.00-15.0) mm/hr PT 12.5 (9.4-12.5) SECONDS INR 1.11 APTT 35.0 (26.9-38.3) Seconds Sodium (132-148) mmol/L Potassium (3.6-5.0) mmol/L Chloride (98-107) mmol/L Carbon Dioxide (21-33) mmol/L Anion Gap (10-20) BUN (7-21) mg/dL Creatinine (0.8-1.5) mg/dl Est GFR ( Amer) Est GFR (Non-Af Amer) POC Glucose (mg/dL) (65-110) mg/dL Random Glucose (70-110) mg/dL Hemoglobin A1c (4.2-6.5) % Calcium (8.4-10.5) mg/dL Phosphorus (2.5-4.5) mg/dL Magnesium (1.7-2.2) mg/dL Total Bilirubin (0.2-1.3) mg/dL AST (17-59) U/L ALT (7-56) U/L Alkaline Phosphatase (38-126) U/L Troponin I ng/mL C-Reactive Protein (0.0-9.9) mg/L NT-Pro-B Natriuret Pep (0-450) pg/mL Total Protein (5.8-8.3) g/dL Albumin (3.0-4.8) g/dL Globulin gm/dL Albumin/Globulin Ratio (1.1-1.8) Triglycerides (35-160) mg/dL Cholesterol (130-200) mg/dL LDL Cholesterol Direct (0-129) mg/dL HDL Cholesterol (29-60) mg/dL Procalcitonin < 0.05 L (0.19-0.49) NG/ML TSH 3rd Generation (0.46-4.68) mIU/mL Urine Color (YELLOW) Urine Appearance (CLEAR) Urine pH (4.7-8.0) Ur Specific [place] (1.005-1.035) Urine Protein (<30 mg/dL) mg/dL Urine Glucose (UA) (NEGATIVE) mg/dL Urine Ketones (NEGATIVE) mg/dL Urine Blood (NEGATIVE) Urine Nitrate (NEGATIVE) Urine Bilirubin (NEGATIVE) Urine Urobilinogen (<1 E.U./dL) E.U./dL Ur Leukocyte Esterase (NEGATIVE) Agust[place]/uL Urine RBC (0-2) /hpf Urine WBC (0-6) /hpf Ur Epithelial Cells (0-5) /hpf Urine Bacteria (NONE) /hpf Urine Other /hpf Urine Opiates Screen (NEGATIVE) Urine Methadone Screen (NEGATIVE) Ur Barbiturates Screen (NEGATIVE) Ur Phencyclidine Scrn (NEGATIVE) Ur Amphetamines Screen (NEGATIVE) U Benzodiazepines Scrn (NEGATIVE) U Oth Cocaine Metabols (NEGATIVE) U Cannabinoids Screen (NEGATIVE) Laboratory Results - last 24 hr 10/21/18 10/21/18 10/21/18 11:00 11:20 11:20 WBC 7.5 RBC 5.01 Hgb 14.1 Hct 43.0 MCV 85.8 MCH 28.1 MCHC 32.8 RDW 13.1 Plt Count 221 MPV 9.8 Neut % (Auto) 75.0 H Lymph % (Auto) 13.4 L [place] % (Auto) 8.5 H Eos % (Auto) 3.0 Baso % (Auto) 0.1 Lymph # (Auto) 1.0 L [place] # (Auto) 0.6 Eos # (Auto) 0.2 Baso # (Auto) 0.01 Absolute Neuts (auto) 5.59 Neutrophils % (Manual) Lymphocytes % (Manual) Monocytes % (Manual) ESR PT 12.5 INR 1.11 APTT 35.0 Sodium Potassium Chloride Carbon Dioxide Anion Gap BUN Creatinine Est GFR ( Amer) Est GFR (Non-Af Amer) POC Glucose (mg/dL) Random Glucose Hemoglobin A1c Calcium Phosphorus Magnesium Total Bilirubin AST ALT Alkaline Phosphatase Troponin I C-Reactive Protein NT-Pro-B Natriuret Pep Total Protein Albumin Globulin Albumin/Globulin Ratio Triglycerides Cholesterol LDL Cholesterol Direct HDL Cholesterol Procalcitonin < 0.05 L TSH 3rd Generation Urine Color Urine Appearance Urine pH Ur Specific [place] Urine Protein Urine Glucose (UA) Urine Ketones Urine Blood Urine Nitrate Urine Bilirubin Urine Urobilinogen Ur Leukocyte Esterase Urine RBC Urine WBC Ur Epithelial Cells Urine Bacteria Urine Other Urine Opiates Screen Urine Methadone Screen Ur Barbiturates Screen Ur Phencyclidine Scrn Ur Amphetamines Screen U Benzodiazepines Scrn U Oth Cocaine Metabols U Cannabinoids Screen 10/21/18 10/21/18 10/21/18 11:20 11:30 11:30 WBC RBC Hgb Hct MCV MCH MCHC RDW Plt Count MPV Neut % (Auto) Lymph % (Auto) [place] % (Auto) Eos % (Auto) Baso % (Auto) Lymph # (Auto) [place] # (Auto) Eos # (Auto) Baso # (Auto) Absolute Neuts (auto) Neutrophils % (Manual) Lymphocytes % (Manual) Monocytes % (Manual) ESR 32 H PT INR APTT Sodium 144 Potassium 4.7 Chloride 108 H Carbon Dioxide 29 Anion Gap 12 BUN 19 Creatinine 1.4 Est GFR ( Amer) 60 Est GFR (Non-Af Amer) 49 POC Glucose (mg/dL) Random Glucose 85 Hemoglobin A1c Calcium 9.5 Phosphorus 3.1 Magnesium 2.2 Total Bilirubin 0.6 AST 20 ALT 20 Alkaline Phosphatase 81 Troponin I < 0.01 C-Reactive Protein NT-Pro-B Natriuret Pep 433 Total Protein 7.3 Albumin 4.2 Globulin 3.2 Albumin/Globulin Ratio 1.3 Triglycerides Cholesterol LDL Cholesterol Direct HDL Cholesterol Procalcitonin TSH 3rd Generation Urine Color Urine Appearance Urine pH Ur Specific [place] Urine Protein Urine Glucose (UA) Urine Ketones Urine Blood Urine Nitrate Urine Bilirubin Urine Urobilinogen Ur Leukocyte Esterase Urine RBC Urine WBC Ur Epithelial Cells Urine Bacteria Urine Other Urine Opiates Screen Urine Methadone Screen Ur Barbiturates Screen Ur Phencyclidine Scrn Ur Amphetamines Screen U Benzodiazepines Scrn U Oth Cocaine Metabols U Cannabinoids Screen 10/21/18 10/21/18 10/21/18 11:30 11:30 11:30 WBC RBC Hgb Hct MCV MCH MCHC RDW Plt Count MPV Neut % (Auto) Lymph % (Auto) [place] % (Auto) Eos % (Auto) Baso % (Auto) Lymph # (Auto) [place] # (Auto) Eos # (Auto) Baso # (Auto) Absolute Neuts (auto) Neutrophils % (Manual) Lymphocytes % (Manual) Monocytes % (Manual) ESR PT INR APTT Sodium Potassium Chloride Carbon Dioxide Anion Gap BUN Creatinine Est GFR ( Amer) Est GFR (Non-Af Amer) POC Glucose (mg/dL) Random Glucose Hemoglobin A1c 5.3 Calcium Phosphorus Magnesium Total Bilirubin AST ALT Alkaline Phosphatase Troponin I C-Reactive Protein 27.10 H NT-Pro-B Natriuret Pep Total Protein Albumin Globulin Albumin/Globulin Ratio Triglycerides 166 H Cholesterol 191 LDL Cholesterol Direct 110 HDL Cholesterol 44 Procalcitonin TSH 3rd Generation 1.63 Urine Color Urine Appearance Urine pH Ur Specific [place] Urine Protein Urine Glucose (UA) Urine Ketones Urine Blood Urine Nitrate Urine Bilirubin Urine Urobilinogen Ur Leukocyte Esterase Urine RBC Urine WBC Ur Epithelial Cells Urine Bacteria Urine Other Urine Opiates Screen Urine Methadone Screen Ur Barbiturates Screen Ur Phencyclidine Scrn Ur Amphetamines Screen U Benzodiazepines Scrn U Oth Cocaine Metabols U Cannabinoids Screen 10/21/18 10/21/18 10/21/18 14:30 14:40 16:49 WBC RBC Hgb Hct MCV MCH MCHC RDW Plt Count MPV Neut % (Auto) Lymph % (Auto) [place] % (Auto) Eos % (Auto) Baso % (Auto) Lymph # (Auto) [place] # (Auto) Eos # (Auto) Baso # (Auto) Absolute Neuts (auto) Neutrophils % (Manual) Lymphocytes % (Manual) Monocytes % (Manual) ESR PT INR APTT Sodium Potassium Chloride Carbon Dioxide Anion Gap BUN Creatinine Est GFR ( Amer) Est GFR (Non-Af Amer) POC Glucose (mg/dL) 93 Random Glucose Hemoglobin A1c Calcium Phosphorus Magnesium Total Bilirubin AST ALT Alkaline Phosphatase Troponin I C-Reactive Protein NT-Pro-B Natriuret Pep Total Protein Albumin Globulin Albumin/Globulin Ratio Triglycerides Cholesterol LDL Cholesterol Direct HDL Cholesterol Procalcitonin TSH 3rd Generation Urine Color Yellow Urine Appearance Clear Urine pH 7.5 Ur Specific [place] 1.020 Urine Protein 30 H Urine Glucose (UA) Negative Urine Ketones Negative Urine Blood Negative Urine Nitrate Negative Urine Bilirubin Negative Urine Urobilinogen 0.2 Ur Leukocyte Esterase Negative Urine RBC 0 - 2 Urine WBC 0 - 2 Ur Epithelial Cells None Urine Bacteria Few Urine Other Fiber Urine Opiates Screen Negative Urine Methadone Screen Negative Ur Barbiturates Screen Negative Ur Phencyclidine Scrn Negative Ur Amphetamines Screen Negative U Benzodiazepines Scrn Negative U Oth Cocaine Metabols Negative U Cannabinoids Screen Negative 10/21/18 10/22/18 10/22/18 21:12 05:00 06:30 WBC 12.1 H D RBC 5.03 Hgb 13.9 L Hct 42.4 MCV 84.3 MCH 27.6 MCHC 32.8 RDW 13.1 Plt Count 233 MPV 10.3 Neut % (Auto) 88.7 H Lymph % (Auto) 3.0 L [place] % (Auto) 7.8 H Eos % (Auto) 0.4 L Baso % (Auto) 0.1 Lymph # (Auto) 0.4 L [place] # (Auto) 1.0 H Eos # (Auto) 0.1 Baso # (Auto) 0.01 Absolute Neuts (auto) 10.75 H Neutrophils % (Manual) 91 H Lymphocytes % (Manual) 3 L Monocytes % (Manual) 6 ESR PT INR APTT Sodium 141 Potassium 4.2 Chloride 105 Carbon Dioxide 27 Anion Gap 13 BUN 19 Creatinine 1.4 Est GFR ( Amer) 60 Est GFR (Non-Af Amer) 49 POC Glucose (mg/dL) 124 H Random Glucose 122 H Hemoglobin A1c Calcium 9.5 Phosphorus Magnesium Total Bilirubin 1.0 AST 45 ALT 21 Alkaline Phosphatase 71 Troponin I C-Reactive Protein NT-Pro-B Natriuret Pep Total Protein 7.4 Albumin 3.9 Globulin 3.6 Albumin/Globulin Ratio 1.1 Triglycerides Cholesterol LDL Cholesterol Direct HDL Cholesterol Procalcitonin TSH 3rd Generation Urine Color Urine Appearance Urine pH Ur Specific [place] Urine Protein Urine Glucose (UA) Urine Ketones Urine Blood Urine Nitrate Urine Bilirubin Urine Urobilinogen Ur Leukocyte Esterase Urine RBC Urine WBC Ur Epithelial Cells Urine Bacteria Urine Other Urine Opiates Screen Urine Methadone Screen Ur Barbiturates Screen Ur Phencyclidine Scrn Ur Amphetamines Screen U Benzodiazepines Scrn U Oth Cocaine Metabols U Cannabinoids Screen Radiology Impressions: Radiology Impressions Renal Ultrasound 10/21/18 14:07 IMPRESSION: Unremarkable renal sonogram. EKG/Cardiology Studies: Cardiology / EKG Studies 10/21/18 12:08 EKG [ELECTROCARDIOGRAM] Stat Comment: Reason For Exam: htn Fingerstick Blood Sugar Results: 93 Critical Care Progress Note - Nutrition Nutrition: Nutrition Category Date Time Status Heart Healthy Diet [DIET] Diets 10/21/18 Breakfast Active Assessment/Plan - Assessment and Plan (Free Text) Assessment: 77 y/o male with PMH of HTN, DM, severe PAD/venous stasis, bilateral lower extremity cellulitis admitted to ICU for hypertensive urgency. On cardene drip, now BP controlled. Plan: Neuro: -AAOx3 -maintain normothermia Cardio: -resolved hypertensive urgency -started PO anti HTN meds lisonopril, HCTZ -d/c cardene drip -f/u renal US -f/u echo: -aldosterone/renin, and metanephrines -LE US read negative for DVT Pulm: -no respiratory s/sx -maintain O2>92% Endo: -accucheck -ISS-low -A1C 5.3 ID: -bilateral lower extremity cellulitis -afebrile, mild leukocytosis -f/u wound, blood cx -low pro-shorty -elevated CRP -f/u LE x-ray -wound care -continue ceftaroline as per ID -podiatry following -tylenol, dilaudid prn for pain Heme: -H/H stable -continue monitoring Prophylaxis: GI ppx Protonix q12 DVT SCD, Heparin sq Patient is hemodynamically stable, BP controlled, switching to anti-HTN po med, possible transfer to tele PT/OT Full code Heart healthy diet Case reviewed and plan discussed with attending physician Dr Luis <Reuben Luis - Last Filed: 10/22/18 09:42> CCU Objective - Vital Signs / Intake & Output Vital Signs (Last 4 hours): Vital Signs Pulse Resp BP Pulse Ox 10/22/18 07:00 85 15 128/78 96 10/22/18 06:50 85 16 94 L 10/22/18 06:40 87 16 95 10/22/18 06:30 84 16 136/82 95 10/22/18 06:20 87 16 96 10/22/18 06:10 86 15 96 10/22/18 06:00 158/88 H 97 10/22/18 05:50 87 15 95 Intake and Output (Last 8hrs): Intake & Output 10/21/18 10/22/18 10/22/18 22:59 06:59 14:59 Intake Total 740 200 Balance 740 200 Weight 140 lb Intake: IV 500 200 Right Antecubital 300 Oral 240 Other: Voiding Method Urinal # Voids Urine, Voided 200 # Bowel Movements 0 - Medications Active Medications: Active Medications Generic Name Dose Route Start Last Admin Trade Name Freq PRN Reason Stop Dose Admin Acetaminophen 650 mg 10/21/18 16:46 10/21/18 16:59 Tylenol 325mg Tab PO 650 mg Q6H PRN Administration Pain, Mild (1-3) Heparin Sodium (Porcine) 5,000 units 10/21/18 22:00 10/22/18 06:02 Heparin SC 5,000 units Q8 [facility] Administration Protocol Hydrochlorothiazide 12.5 mg 10/22/18 09:00 Microzide PO DAILY [facility] Hydromorphone HCl 1 mg 10/22/18 00:29 10/22/18 04:40 Dilaudid IVP 1 mg Q4H PRN Administration Pain, severe (8-10) Nicardipine HCl 20 mg in 200 mls @ 50 mls/hr 10/21/18 14:03 10/22/18 05:57 Cardene Iv Premix IV 2.5 mg/hr .Q4H PRN 25 mls/hr TITRATE PER MD ORDER Administration Protocol 5 MG/HR Ceftaroline Fosamil 400 mg/ 100 mls @ 100 mls/hr 10/21/18 22:00 10/21/18 21:01 Sodium Chloride IVPB 10/28/18 22:01 100 mls/hr Q12 [facility] Administration Protocol Insulin Human Regular 0 units 10/21/18 16:30 10/22/18 00:02 Humulin R Low SC Not Given ACHS [facility] Protocol Lisinopril 20 mg 10/22/18 09:00 Zestril PO DAILY [facility] Pantoprazole Sodium 40 mg 10/22/18 06:00 10/22/18 06:02 Protonix Ec Tab PO 40 mg 0600 [facility] Administration - Patient Studies Lab Studies: Lab Studies 10/22/18 10/22/18 10/21/18 Range/Units 06:30 05:00 21:12 WBC 12.1 H D (4.5-11.0) 10^3/uL RBC 5.03 (3.5-6.1) 10^6/uL Hgb 13.9 L (14.0-18.0) g/dL Hct 42.4 (42.0-52.0) % MCV 84.3 (80.0-105.0) fl MCH 27.6 (25.0-35.0) pg MCHC 32.8 (31.0-37.0) g/dl RDW 13.1 (11.5-14.5) % Plt Count 233 (120.0-450.0) 10^3/uL MPV 10.3 (7.0-11.0) fl Neut % (Auto) 88.7 H (50.0-68.0) % Lymph % (Auto) 3.0 L (22.0-35.0) % [place] % (Auto) 7.8 H (1.0-6.0) % Eos % (Auto) 0.4 L (1.5-5.0) % Baso % (Auto) 0.1 (0.0-3.0) % Lymph # (Auto) 0.4 L (1.2-3.4) [place] # (Auto) 1.0 H (0.1-0.6) Eos # (Auto) 0.1 (0.0-0.7) Baso # (Auto) 0.01 (0.0-2.0) K/mm3 Absolute Neuts (auto) 10.75 H (1.4-6.5) Neutrophils % (Manual) 91 H (50.0-70.0) % Lymphocytes % (Manual) 3 L (22.0-35.0) % Monocytes % (Manual) 6 (1.0-6.0) % ESR (0.00-15.0) mm/hr PT (9.4-12.5) SECONDS INR APTT (26.9-38.3) Seconds Sodium 141 (132-148) mmol/L Potassium 4.2 (3.6-5.0) mmol/L Chloride 105 (98-107) mmol/L Carbon Dioxide 27 (21-33) mmol/L Anion Gap 13 (10-20) BUN 19 (7-21) mg/dL Creatinine 1.4 (0.8-1.5) mg/dl Est GFR ( Amer) 60 Est GFR (Non-Af Amer) 49 POC Glucose (mg/dL) 124 H (65-110) mg/dL Random Glucose 122 H (70-110) mg/dL Hemoglobin A1c (4.2-6.5) % Calcium 9.5 (8.4-10.5) mg/dL Phosphorus (2.5-4.5) mg/dL Magnesium (1.7-2.2) mg/dL Total Bilirubin 1.0 (0.2-1.3) mg/dL AST 45 (17-59) U/L ALT 21 (7-56) U/L Alkaline Phosphatase 71 (38-126) U/L Troponin I ng/mL C-Reactive Protein (0.0-9.9) mg/L NT-Pro-B Natriuret Pep (0-450) pg/mL Total Protein 7.4 (5.8-8.3) g/dL Albumin 3.9 (3.0-4.8) g/dL Globulin 3.6 gm/dL Albumin/Globulin Ratio 1.1 (1.1-1.8) Triglycerides (35-160) mg/dL Cholesterol (130-200) mg/dL LDL Cholesterol Direct (0-129) mg/dL HDL Cholesterol (29-60) mg/dL Procalcitonin (0.19-0.49) NG/ML TSH 3rd Generation (0.46-4.68) mIU/mL Urine Color (YELLOW) Urine Appearance (CLEAR) Urine pH (4.7-8.0) Ur Specific [place] (1.005-1.035) Urine Protein (<30 mg/dL) mg/dL Urine Glucose (UA) (NEGATIVE) mg/dL Urine Ketones (NEGATIVE) mg/dL Urine Blood (NEGATIVE) Urine Nitrate (NEGATIVE) Urine Bilirubin (NEGATIVE) Urine Urobilinogen (<1 E.U./dL) E.U./dL Ur Leukocyte Esterase (NEGATIVE) Agustin/uL Urine RBC (0-2) /hpf Urine WBC (0-6) /hpf Ur Epithelial Cells (0-5) /hpf Urine Bacteria (NONE) /hpf Urine Other /hpf Urine Opiates Screen (NEGATIVE) Urine Methadone Screen (NEGATIVE) Ur Barbiturates Screen (NEGATIVE) Ur Phencyclidine Scrn (NEGATIVE) Ur Amphetamines Screen (NEGATIVE) U Benzodiazepines Scrn (NEGATIVE) U Oth Cocaine Metabols (NEGATIVE) U Cannabinoids Screen (NEGATIVE) 10/21/18 10/21/18 10/21/18 Range/Units 16:49 14:40 14:30 WBC (4.5-11.0) 10^3/uL RBC (3.5-6.1) 10^6/uL Hgb (14.0-18.0) g/dL Hct (42.0-52.0) % MCV (80.0-105.0) fl MCH (25.0-35.0) pg MCHC (31.0-37.0) g/dl RDW (11.5-14.5) % Plt Count (120.0-450.0) 10^3/uL MPV (7.0-11.0) fl Neut % (Auto) (50.0-68.0) % Lymph % (Auto) (22.0-35.0) % [place] % (Auto) (1.0-6.0) % Eos % (Auto) (1.5-5.0) % Baso % (Auto) (0.0-3.0) % Lymph # (Auto) (1.2-3.4) [place] # (Auto) (0.1-0.6) Eos # (Auto) (0.0-0.7) Baso # (Auto) (0.0-2.0) K/mm3 Absolute Neuts (auto) (1.4-6.5) Neutrophils % (Manual) (50.0-70.0) % Lymphocytes % (Manual) (22.0-35.0) % Monocytes % (Manual) (1.0-6.0) % ESR (0.00-15.0) mm/hr PT (9.4-12.5) SECONDS INR APTT (26.9-38.3) Seconds Sodium (132-148) mmol/L Potassium (3.6-5.0) mmol/L Chloride (98-107) mmol/L Carbon Dioxide (21-33) mmol/L Anion Gap (10-20) BUN (7-21) mg/dL Creatinine (0.8-1.5) mg/dl Est GFR ( Amer) Est GFR (Non-Af Amer) POC Glucose (mg/dL) 93 (65-110) mg/dL Random Glucose (70-110) mg/dL Hemoglobin A1c (4.2-6.5) % Calcium (8.4-10.5) mg/dL Phosphorus (2.5-4.5) mg/dL Magnesium (1.7-2.2) mg/dL Total Bilirubin (0.2-1.3) mg/dL AST (17-59) U/L ALT (7-56) U/L Alkaline Phosphatase (38-126) U/L Troponin I ng/mL C-Reactive Protein (0.0-9.9) mg/L NT-Pro-B Natriuret Pep (0-450) pg/mL Total Protein (5.8-8.3) g/dL Albumin (3.0-4.8) g/dL Globulin gm/dL Albumin/Globulin Ratio (1.1-1.8) Triglycerides (35-160) mg/dL Cholesterol (130-200) mg/dL LDL Cholesterol Direct (0-129) mg/dL HDL Cholesterol (29-60) mg/dL Procalcitonin (0.19-0.49) NG/ML TSH 3rd Generation (0.46-4.68) mIU/mL Urine Color Yellow (YELLOW) Urine Appearance Clear (CLEAR) Urine pH 7.5 (4.7-8.0) Ur Specific [place] 1.020 (1.005-1.035) Urine Protein 30 H (<30 mg/dL) mg/dL Urine Glucose (UA) Negative (NEGATIVE) mg/dL Urine Ketones Negative (NEGATIVE) mg/dL Urine Blood Negative (NEGATIVE) Urine Nitrate Negative (NEGATIVE) Urine Bilirubin Negative (NEGATIVE) Urine Urobilinogen 0.2 (<1 E.U./dL) E.U./dL Ur Leukocyte Esterase Negative (NEGATIVE) Agustin/uL Urine RBC 0 - 2 (0-2) /hpf Urine WBC 0 - 2 (0-6) /hpf Ur Epithelial Cells None (0-5) /hpf Urine Bacteria Few (NONE) /hpf Urine Other Fiber /hpf Urine Opiates Screen Negative (NEGATIVE) Urine Methadone Screen Negative (NEGATIVE) Ur Barbiturates Screen Negative (NEGATIVE) Ur Phencyclidine Scrn Negative (NEGATIVE) Ur Amphetamines Screen Negative (NEGATIVE) U Benzodiazepines Scrn Negative (NEGATIVE) U Oth Cocaine Metabols Negative (NEGATIVE) U Cannabinoids Screen Negative (NEGATIVE) 10/21/18 10/21/18 10/21/18 Range/Units 11:30 11:30 11:30 WBC (4.5-11.0) 10^3/uL RBC (3.5-6.1) 10^6/uL Hgb (14.0-18.0) g/dL Hct (42.0-52.0) % MCV (80.0-105.0) fl MCH (25.0-35.0) pg MCHC (31.0-37.0) g/dl RDW (11.5-14.5) % Plt Count (120.0-450.0) 10^3/uL MPV (7.0-11.0) fl Neut % (Auto) (50.0-68.0) % Lymph % (Auto) (22.0-35.0) % [place] % (Auto) (1.0-6.0) % Eos % (Auto) (1.5-5.0) % Baso % (Auto) (0.0-3.0) % Lymph # (Auto) (1.2-3.4) [place] # (Auto) (0.1-0.6) Eos # (Auto) (0.0-0.7) Baso # (Auto) (0.0-2.0) K/mm3 Absolute Neuts (auto) (1.4-6.5) Neutrophils % (Manual) (50.0-70.0) % Lymphocytes % (Manual) (22.0-35.0) % Monocytes % (Manual) (1.0-6.0) % ESR (0.00-15.0) mm/hr PT (9.4-12.5) SECONDS INR APTT (26.9-38.3) Seconds Sodium (132-148) mmol/L Potassium (3.6-5.0) mmol/L Chloride (98-107) mmol/L Carbon Dioxide (21-33) mmol/L Anion Gap (10-20) BUN (7-21) mg/dL Creatinine (0.8-1.5) mg/dl Est GFR ( Amer) Est GFR (Non-Af Amer) POC Glucose (mg/dL) (65-110) mg/dL Random Glucose (70-110) mg/dL Hemoglobin A1c 5.3 (4.2-6.5) % Calcium (8.4-10.5) mg/dL Phosphorus (2.5-4.5) mg/dL Magnesium (1.7-2.2) mg/dL Total Bilirubin (0.2-1.3) mg/dL AST (17-59) U/L ALT (7-56) U/L Alkaline Phosphatase (38-126) U/L Troponin I ng/mL C-Reactive Protein 27.10 H (0.0-9.9) mg/L NT-Pro-B Natriuret Pep (0-450) pg/mL Total Protein (5.8-8.3) g/dL Albumin (3.0-4.8) g/dL Globulin gm/dL Albumin/Globulin Ratio (1.1-1.8) Triglycerides 166 H (35-160) mg/dL Cholesterol 191 (130-200) mg/dL LDL Cholesterol Direct 110 (0-129) mg/dL HDL Cholesterol 44 (29-60) mg/dL Procalcitonin (0.19-0.49) NG/ML TSH 3rd Generation 1.63 (0.46-4.68) mIU/mL Urine Color (YELLOW) Urine Appearance (CLEAR) Urine pH (4.7-8.0) Ur Specific [place] (1.005-1.035) Urine Protein (<30 mg/dL) mg/dL Urine Glucose (UA) (NEGATIVE) mg/dL Urine Ketones (NEGATIVE) mg/dL Urine Blood (NEGATIVE) Urine Nitrate (NEGATIVE) Urine Bilirubin (NEGATIVE) Urine Urobilinogen (<1 E.U./dL) E.U./dL Ur Leukocyte Esterase (NEGATIVE) Agustin/uL Urine RBC (0-2) /hpf Urine WBC (0-6) /hpf Ur Epithelial Cells (0-5) /hpf Urine Bacteria (NONE) /hpf Urine Other /hpf Urine Opiates Screen (NEGATIVE) Urine Methadone Screen (NEGATIVE) Ur Barbiturates Screen (NEGATIVE) Ur Phencyclidine Scrn (NEGATIVE) Ur Amphetamines Screen (NEGATIVE) U Benzodiazepines Scrn (NEGATIVE) U Oth Cocaine Metabols (NEGATIVE) U Cannabinoids Screen (NEGATIVE) 10/21/18 10/21/18 10/21/18 Range/Units 11:30 11:30 11:20 WBC (4.5-11.0) 10^3/uL RBC (3.5-6.1) 10^6/uL Hgb (14.0-18.0) g/dL Hct (42.0-52.0) % MCV (80.0-105.0) fl MCH (25.0-35.0) pg MCHC (31.0-37.0) g/dl RDW (11.5-14.5) % Plt Count (120.0-450.0) 10^3/uL MPV (7.0-11.0) fl Neut % (Auto) (50.0-68.0) % Lymph % (Auto) (22.0-35.0) % [place] % (Auto) (1.0-6.0) % Eos % (Auto) (1.5-5.0) % Baso % (Auto) (0.0-3.0) % Lymph # (Auto) (1.2-3.4) [place] # (Auto) (0.1-0.6) Eos # (Auto) (0.0-0.7) Baso # (Auto) (0.0-2.0) K/mm3 Absolute Neuts (auto) (1.4-6.5) Neutrophils % (Manual) (50.0-70.0) % Lymphocytes % (Manual) (22.0-35.0) % Monocytes % (Manual) (1.0-6.0) % ESR 32 H (0.00-15.0) mm/hr PT (9.4-12.5) SECONDS INR APTT (26.9-38.3) Seconds Sodium 144 (132-148) mmol/L Potassium 4.7 (3.6-5.0) mmol/L Chloride 108 H (98-107) mmol/L Carbon Dioxide 29 (21-33) mmol/L Anion Gap 12 (10-20) BUN 19 (7-21) mg/dL Creatinine 1.4 (0.8-1.5) mg/dl Est GFR ( Amer) 60 Est GFR (Non-Af Amer) 49 POC Glucose (mg/dL) (65-110) mg/dL Random Glucose 85 (70-110) mg/dL Hemoglobin A1c (4.2-6.5) % Calcium 9.5 (8.4-10.5) mg/dL Phosphorus 3.1 (2.5-4.5) mg/dL Magnesium 2.2 (1.7-2.2) mg/dL Total Bilirubin 0.6 (0.2-1.3) mg/dL AST 20 (17-59) U/L ALT 20 (7-56) U/L Alkaline Phosphatase 81 (38-126) U/L Troponin I < 0.01 ng/mL C-Reactive Protein (0.0-9.9) mg/L NT-Pro-B Natriuret Pep 433 (0-450) pg/mL Total Protein 7.3 (5.8-8.3) g/dL Albumin 4.2 (3.0-4.8) g/dL Globulin 3.2 gm/dL Albumin/Globulin Ratio 1.3 (1.1-1.8) Triglycerides (35-160) mg/dL Cholesterol (130-200) mg/dL LDL Cholesterol Direct (0-129) mg/dL HDL Cholesterol (29-60) mg/dL Procalcitonin (0.19-0.49) NG/ML TSH 3rd Generation (0.46-4.68) mIU/mL Urine Color (YELLOW) Urine Appearance (CLEAR) Urine pH (4.7-8.0) Ur Specific [place] (1.005-1.035) Urine Protein (<30 mg/dL) mg/dL Urine Glucose (UA) (NEGATIVE) mg/dL Urine Ketones (NEGATIVE) mg/dL Urine Blood (NEGATIVE) Urine Nitrate (NEGATIVE) Urine Bilirubin (NEGATIVE) Urine Urobilinogen (<1 E.U./dL) E.U./dL Ur Leukocyte Esterase (NEGATIVE) [place]ust[place]/uL Urine RBC (0-2) /hpf Urine WBC (0-6) /hpf Ur Epithelial Cells (0-5) /hpf Urine Bacteria (NONE) /hpf Urine Other /hpf Urine Opiates Screen (NEGATIVE) Urine Methadone Screen (NEGATIVE) Ur Barbiturates Screen (NEGATIVE) Ur Phencyclidine Scrn (NEGATIVE) Ur Amphetamines Screen (NEGATIVE) U Benzodiazepines Scrn (NEGATIVE) U Oth Cocaine Metabols (NEGATIVE) U Cannabinoids Screen (NEGATIVE) 10/21/18 10/21/18 10/21/18 Range/Units 11:20 11:20 11:00 WBC 7.5 (4.5-11.0) 10^3/uL RBC 5.01 (3.5-6.1) 10^6/uL Hgb 14.1 (14.0-18.0) g/dL Hct 43.0 (42.0-52.0) % MCV 85.8 (80.0-105.0) fl MCH 28.1 (25.0-35.0) pg MCHC 32.8 (31.0-37.0) g/dl RDW 13.1 (11.5-14.5) % Plt Count 221 (120.0-450.0) 10^3/uL MPV 9.8 (7.0-11.0) fl Neut % (Auto) 75.0 H (50.0-68.0) % Lymph % (Auto) 13.4 L (22.0-35.0) % [place] % (Auto) 8.5 H (1.0-6.0) % Eos % (Auto) 3.0 (1.5-5.0) % Baso % (Auto) 0.1 (0.0-3.0) % Lymph # (Auto) 1.0 L (1.2-3.4) [place] # (Auto) 0.6 (0.1-0.6) Eos # (Auto) 0.2 (0.0-0.7) Baso # (Auto) 0.01 (0.0-2.0) K/mm3 Absolute Neuts (auto) 5.59 (1.4-6.5) Neutrophils % (Manual) (50.0-70.0) % Lymphocytes % (Manual) (22.0-35.0) % Monocytes % (Manual) (1.0-6.0) % ESR (0.00-15.0) mm/hr PT 12.5 (9.4-12.5) SECONDS INR 1.11 APTT 35.0 (26.9-38.3) Seconds Sodium (132-148) mmol/L Potassium (3.6-5.0) mmol/L Chloride (98-107) mmol/L Carbon Dioxide (21-33) mmol/L Anion Gap (10-20) BUN (7-21) mg/dL Creatinine (0.8-1.5) mg/dl Est GFR ( Amer) Est GFR (Non-Af Amer) POC Glucose (mg/dL) (65-110) mg/dL Random Glucose (70-110) mg/dL Hemoglobin A1c (4.2-6.5) % Calcium (8.4-10.5) mg/dL Phosphorus (2.5-4.5) mg/dL Magnesium (1.7-2.2) mg/dL Total Bilirubin (0.2-1.3) mg/dL AST (17-59) U/L ALT (7-56) U/L Alkaline Phosphatase (38-126) U/L Troponin I ng/mL C-Reactive Protein (0.0-9.9) mg/L NT-Pro-B Natriuret Pep (0-450) pg/mL Total Protein (5.8-8.3) g/dL Albumin (3.0-4.8) g/dL Globulin gm/dL Albumin/Globulin Ratio (1.1-1.8) Triglycerides (35-160) mg/dL Cholesterol (130-200) mg/dL LDL Cholesterol Direct (0-129) mg/dL HDL Cholesterol (29-60) mg/dL Procalcitonin < 0.05 L (0.19-0.49) NG/ML TSH 3rd Generation (0.46-4.68) mIU/mL Urine Color (YELLOW) Urine Appearance (CLEAR) Urine pH (4.7-8.0) Ur Specific [place] (1.005-1.035) Urine Protein (<30 mg/dL) mg/dL Urine Glucose (UA) (NEGATIVE) mg/dL Urine Ketones (NEGATIVE) mg/dL Urine Blood (NEGATIVE) Urine Nitrate (NEGATIVE) Urine Bilirubin (NEGATIVE) Urine Urobilinogen (<1 E.U./dL) E.U./dL Ur Leukocyte Esterase (NEGATIVE) Agust[place]/uL Urine RBC (0-2) /hpf Urine WBC (0-6) /hpf Ur Epithelial Cells (0-5) /hpf Urine Bacteria (NONE) /hpf Urine Other /hpf Urine Opiates Screen (NEGATIVE) Urine Methadone Screen (NEGATIVE) Ur Barbiturates Screen (NEGATIVE) Ur Phencyclidine Scrn (NEGATIVE) Ur Amphetamines Screen (NEGATIVE) U Benzodiazepines Scrn (NEGATIVE) U Oth Cocaine Metabols (NEGATIVE) U Cannabinoids Screen (NEGATIVE) Laboratory Results - last 24 hr 10/21/18 10/21/18 10/21/18 11:00 11:20 11:20 WBC 7.5 RBC 5.01 Hgb 14.1 Hct 43.0 MCV 85.8 MCH 28.1 MCHC 32.8 RDW 13.1 Plt Count 221 MPV 9.8 Neut % (Auto) 75.0 H Lymph % (Auto) 13.4 L [place] % (Auto) 8.5 H Eos % (Auto) 3.0 Baso % (Auto) 0.1 Lymph # (Auto) 1.0 L [place] # (Auto) 0.6 Eos # (Auto) 0.2 Baso # (Auto) 0.01 Absolute Neuts (auto) 5.59 Neutrophils % (Manual) Lymphocytes % (Manual) Monocytes % (Manual) ESR PT 12.5 INR 1.11 APTT 35.0 Sodium Potassium Chloride Carbon Dioxide Anion Gap BUN Creatinine Est GFR ( Amer) Est GFR (Non-Af Amer) POC Glucose (mg/dL) Random Glucose Hemoglobin A1c Calcium Phosphorus Magnesium Total Bilirubin AST ALT Alkaline Phosphatase Troponin I C-Reactive Protein NT-Pro-B Natriuret Pep Total Protein Albumin Globulin Albumin/Globulin Ratio Triglycerides Cholesterol LDL Cholesterol Direct HDL Cholesterol Procalcitonin < 0.05 L TSH 3rd Generation Urine Color Urine Appearance Urine pH Ur Specific [place] Urine Protein Urine Glucose (UA) Urine Ketones Urine Blood Urine Nitrate Urine Bilirubin Urine Urobilinogen Ur Leukocyte Esterase Urine RBC Urine WBC Ur Epithelial Cells Urine Bacteria Urine Other Urine Opiates Screen Urine Methadone Screen Ur Barbiturates Screen Ur Phencyclidine Scrn Ur Amphetamines Screen U Benzodiazepines Scrn U Oth Cocaine Metabols U Cannabinoids Screen 10/21/18 10/21/18 10/21/18 11:20 11:30 11:30 WBC RBC Hgb Hct MCV MCH MCHC RDW Plt Count MPV Neut % (Auto) Lymph % (Auto) [place] % (Auto) Eos % (Auto) Baso % (Auto) Lymph # (Auto) [place] # (Auto) Eos # (Auto) Baso # (Auto) Absolute Neuts (auto) Neutrophils % (Manual) Lymphocytes % (Manual) Monocytes % (Manual) ESR 32 H PT INR APTT Sodium 144 Potassium 4.7 Chloride 108 H Carbon Dioxide 29 Anion Gap 12 BUN 19 Creatinine 1.4 Est GFR ( Amer) 60 Est GFR (Non-Af Amer) 49 POC Glucose (mg/dL) Random Glucose 85 Hemoglobin A1c Calcium 9.5 Phosphorus 3.1 Magnesium 2.2 Total Bilirubin 0.6 AST 20 ALT 20 Alkaline Phosphatase 81 Troponin I < 0.01 C-Reactive Protein NT-Pro-B Natriuret Pep 433 Total Protein 7.3 Albumin 4.2 Globulin 3.2 Albumin/Globulin Ratio 1.3 Triglycerides Cholesterol LDL Cholesterol Direct HDL Cholesterol Procalcitonin TSH 3rd Generation Urine Color Urine Appearance Urine pH Ur Specific [place] Urine Protein Urine Glucose (UA) Urine Ketones Urine Blood Urine Nitrate Urine Bilirubin Urine Urobilinogen Ur Leukocyte Esterase Urine RBC Urine WBC Ur Epithelial Cells Urine Bacteria Urine Other Urine Opiates Screen Urine Methadone Screen Ur Barbiturates Screen Ur Phencyclidine Scrn Ur Amphetamines Screen U Benzodiazepines Scrn U Oth Cocaine Metabols U Cannabinoids Screen 10/21/18 10/21/18 10/21/18 11:30 11:30 11:30 WBC RBC Hgb Hct MCV MCH MCHC RDW Plt Count MPV Neut % (Auto) Lymph % (Auto) [place] % (Auto) Eos % (Auto) Baso % (Auto) Lymph # (Auto) [place] # (Auto) Eos # (Auto) Baso # (Auto) Absolute Neuts (auto) Neutrophils % (Manual) Lymphocytes % (Manual) Monocytes % (Manual) ESR PT INR APTT Sodium Potassium Chloride Carbon Dioxide Anion Gap BUN Creatinine Est GFR ( Amer) Est GFR (Non-Af Amer) POC Glucose (mg/dL) Random Glucose Hemoglobin A1c 5.3 Calcium Phosphorus Magnesium Total Bilirubin AST ALT Alkaline Phosphatase Troponin I C-Reactive Protein 27.10 H NT-Pro-B Natriuret Pep Total Protein Albumin Globulin Albumin/Globulin Ratio Triglycerides 166 H Cholesterol 191 LDL Cholesterol Direct 110 HDL Cholesterol 44 Procalcitonin TSH 3rd Generation 1.63 Urine Color Urine Appearance Urine pH Ur Specific [place] Urine Protein Urine Glucose (UA) Urine Ketones Urine Blood Urine Nitrate Urine Bilirubin Urine Urobilinogen Ur Leukocyte Esterase Urine RBC Urine WBC Ur Epithelial Cells Urine Bacteria Urine Other Urine Opiates Screen Urine Methadone Screen Ur Barbiturates Screen Ur Phencyclidine Scrn Ur Amphetamines Screen U Benzodiazepines Scrn U Oth Cocaine Metabols U Cannabinoids Screen 10/21/18 10/21/18 10/21/18 14:30 14:40 16:49 WBC RBC Hgb Hct MCV MCH MCHC RDW Plt Count MPV Neut % (Auto) Lymph % (Auto) [place] % (Auto) Eos % (Auto) Baso % (Auto) Lymph # (Auto) [place] # (Auto) Eos # (Auto) Baso # (Auto) Absolute Neuts (auto) Neutrophils % (Manual) Lymphocytes % (Manual) Monocytes % (Manual) ESR PT INR APTT Sodium Potassium Chloride Carbon Dioxide Anion Gap BUN Creatinine Est GFR ( Amer) Est GFR (Non-Af Amer) POC Glucose (mg/dL) 93 Random Glucose Hemoglobin A1c Calcium Phosphorus Magnesium Total Bilirubin AST ALT Alkaline Phosphatase Troponin I C-Reactive Protein NT-Pro-B Natriuret Pep Total Protein Albumin Globulin Albumin/Globulin Ratio Triglycerides Cholesterol LDL Cholesterol Direct HDL Cholesterol Procalcitonin TSH 3rd Generation Urine Color Yellow Urine Appearance Clear Urine pH 7.5 Ur Specific [place] 1.020 Urine Protein 30 H Urine Glucose (UA) Negative Urine Ketones Negative Urine Blood Negative Urine Nitrate Negative Urine Bilirubin Negative Urine Urobilinogen 0.2 Ur Leukocyte Esterase Negative Urine RBC 0 - 2 Urine WBC 0 - 2 Ur Epithelial Cells None Urine Bacteria Few Urine Other Fiber Urine Opiates Screen Negative Urine Methadone Screen Negative Ur Barbiturates Screen Negative Ur Phencyclidine Scrn Negative Ur Amphetamines Screen Negative U Benzodiazepines Scrn Negative U Oth Cocaine Metabols Negative U Cannabinoids Screen Negative 10/21/18 10/22/18 10/22/18 21:12 05:00 06:30 WBC 12.1 H D RBC 5.03 Hgb 13.9 L Hct 42.4 MCV 84.3 MCH 27.6 MCHC 32.8 RDW 13.1 Plt Count 233 MPV 10.3 Neut % (Auto) 88.7 H Lymph % (Auto) 3.0 L [place] % (Auto) 7.8 H Eos % (Auto) 0.4 L Baso % (Auto) 0.1 Lymph # (Auto) 0.4 L [place] # (Auto) 1.0 H Eos # (Auto) 0.1 Baso # (Auto) 0.01 Absolute Neuts (auto) 10.75 H Neutrophils % (Manual) 91 H Lymphocytes % (Manual) 3 L Monocytes % (Manual) 6 ESR PT INR APTT Sodium 141 Potassium 4.2 Chloride 105 Carbon Dioxide 27 Anion Gap 13 BUN 19 Creatinine 1.4 Est GFR ( Amer) 60 Est GFR (Non-Af Amer) 49 POC Glucose (mg/dL) 124 H Random Glucose 122 H Hemoglobin A1c Calcium 9.5 Phosphorus Magnesium Total Bilirubin 1.0 AST 45 ALT 21 Alkaline Phosphatase 71 Troponin I C-Reactive Protein NT-Pro-B Natriuret Pep Total Protein 7.4 Albumin 3.9 Globulin 3.6 Albumin/Globulin Ratio 1.1 Triglycerides Cholesterol LDL Cholesterol Direct HDL Cholesterol Procalcitonin TSH 3rd Generation Urine Color Urine Appearance Urine pH Ur Specific [place] Urine Protein Urine Glucose (UA) Urine Ketones Urine Blood Urine Nitrate Urine Bilirubin Urine Urobilinogen Ur Leukocyte Esterase Urine RBC Urine WBC Ur Epithelial Cells Urine Bacteria Urine Other Urine Opiates Screen Urine Methadone Screen Ur Barbiturates Screen Ur Phencyclidine Scrn Ur Amphetamines Screen U Benzodiazepines Scrn U Oth Cocaine Metabols U Cannabinoids Screen Radiology Impressions: Radiology Impressions Renal Ultrasound 10/21/18 14:07 IMPRESSION: Unremarkable renal sonogram. Chest X-Ray 10/21/18 14:09 IMPRESSION: No active disease. EKG/Cardiology Studies: Cardiology / EKG Studies 10/21/18 12:08 EKG [ELECTROCARDIOGRAM] Stat Comment: Reason For Exam: htn Critical Care Progress Note - Nutrition Nutrition: Nutrition Category Date Time Status Heart Healthy Diet [DIET] Diets 10/21/18 Breakfast Active Attending/Attestation - Attestation I have personally seen and examined this patient.: Yes I have fully participated in the care of the patient.: Yes I have reviewed all pertinent clinical information: Yes Notes (Text): 10/22/18 09:42 The patient was seen and examined at the bedside. Patient care was discussed with resident Medical records, lab studies, and imaging were reviewed and management issues were discussed and formulated. Agree with above treatment plans as outlined in 's note
--- NOTE | 2018-10-22 09:01 | RAD ---
Date of service: 10/21/2018 HISTORY: admission COMPARISON: 04/26/2013 TECHNIQUE: 1 view obtained. FINDINGS: LUNGS: No active pulmonary disease. PLEURA: No significant pleural effusion identified, no pneumothorax apparent. CARDIOVASCULAR: No aortic atherosclerotic calcification present. Normal cardiac size. No pulmonary vascular congestion. OSSEOUS STRUCTURES: No significant abnormalities. VISUALIZED UPPER ABDOMEN: Normal. OTHER FINDINGS: None. IMPRESSION: No active disease.
--- NOTE | 2018-10-22 11:30 | CP.PCM.CON ---
<Dexter Clayton - Last Filed: 10/22/18 12:33> History of Present Illness - History of Present Illness History of Present Illness: Dexter Clayton D.O. PGY-3, Internal Medicine Resident, Infectious Disease Consultation Note 77-year-old male with a past medical history of diabetes and hypertension who presents for complaints of bilateral lower extremity pain and erythema with an ulcer on the left leg. Infectious disease consultation was requested. Patient was seen and examined at bedside. Patient relates that he has been having issues for multiple weeks now with his legs. Patient states that the legs have been getting progressively better and more irritated. Patient states that then he noticed that there was breakdown of the skin over the left lateral aspects. Patient agrees that there has been some output. Denies trauma. Denies any fevers, chills, nausea, vomiting, diarrhea, constipation. Has never had this issue before. Patient has been following with a construction recruiter at the [place]. Patient admits to having right eye surgery. Patient denies any EtOH, tobacco abuse, or drug abuse. Review of Systems - Review of Systems All systems: reviewed and no additional remarkable complaints except (as per HPI) Past Patient History - Infectious Disease Hx of Infectious Diseases: None - Tetanus Immunizations Tetanus Immunization: Unknown - Past Social History Smoking Status: Never Smoked - CARDIAC Hx Hypertension: Yes - PULMONARY Hx Respiratory Disorders: No - NEUROLOGICAL Hx Transient Ischemic Attacks (TIA): Yes (about one yr ago, blurred vision resolved) - HEENT Hx HEENT Problems: Yes (RIGHT EYE SURGERY) - RENAL Hx Chronic Kidney Disease: No - ENDOCRINE/METABOLIC Hx Diabetes Mellitus Type 2: Yes - HEMATOLOGICAL/ONCOLOGICAL Hx Blood Disorders: No - INTEGUMENTARY Other/Comment: 1cm x .5 cm hard growth on left cheek, 1.5cm round brown discoloration to left sabianist, denies skin ca. Ball of left foot 1cm x .5 cm callous, browm discolored skin to right leg below knee, behind both ankles brown dry skin, brown dry skin between toes on both feet - MUSCULOSKELETAL/RHEUMATOLOGICAL Hx Falls: No - GASTROINTESTINAL Hx Gastrointestinal Disorders: No - GENITOURINARY/GYNECOLOGICAL Hx Genitourinary Disorders: No - PSYCHIATRIC Hx Psychophysiologic Disorder: No Hx Anxiety: No Hx Bipolar Disorder: No Hx Depression: No Hx Emotional Abuse: No Hx Hallucinations: No Hx Panic Symptoms: No Hx Paranoia: No Hx Post Traumatic Stress Disorder: No Hx Psychosis: No Hx Physical Abuse: No Hx Schizophrenia: No Hx Sexual Abuse: No Hx Substance Use: No - SURGICAL HISTORY Hx Surgeries: Yes (RIGHT EYE SURGERY) - ANESTHESIA Hx Anesthesia: No Hx Anesthesia Reactions: No Hx Malignant Hyperthermia: No Meds Allergies/Adverse Reactions: Allergies Allergy/AdvReac Type Severity Reaction Status Date / Time No Known Allergies Allergy Verified 10/21/18 20:31 - Medications Medications: Current Medications Acetaminophen (Tylenol 325mg Tab) 650 mg PO Q6H PRN PRN Reason: Pain, Mild (1-3) Last Admin: 10/21/18 16:59 Dose: 650 mg Heparin Sodium (Porcine) (Heparin) 5,000 units SC Q8 [facility]; Protocol Last Admin: 10/22/18 06:02 Dose: 5,000 units Hydrochlorothiazide (Microzide) 12.5 mg PO DAILY [facility] Last Admin: 10/22/18 10:12 Dose: 12.5 mg Hydromorphone HCl (Dilaudid) 1 mg IVP Q4H PRN PRN Reason: Pain, severe (8-10) Last Admin: 10/22/18 04:40 Dose: 1 mg Nicardipine HCl (Cardene Iv Premix) 20 mg in 200 mls @ 50 mls/hr IV .Q4H PRN; Protocol PRN Reason: TITRATE PER MD ORDER Last Admin: 10/22/18 05:57 Dose: 2.5 mg/hr, 25 mls/hr Ceftaroline Fosamil 400 mg/ (Sodium Chloride) 100 mls @ 100 mls/hr IVPB Q12 [facility]; Protocol Stop: 10/28/18 22:01 Last Admin: 10/22/18 10:12 Dose: 100 mls/hr Insulin Human Regular (Humulin R Low) 0 units SC ACHS [facility]; Protocol Last Admin: 10/22/18 10:12 Dose: Not Given Lisinopril (Zestril) 20 mg PO DAILY [facility] Last Admin: 10/22/18 10:11 Dose: 20 mg Pantoprazole Sodium (Protonix Ec Tab) 40 mg PO 0600 [facility] Last Admin: 10/22/18 06:02 Dose: 40 mg Physical Exam - Constitutional Appears: Non-toxic, No Acute Distress - Head Exam Head Exam: ATRAUMATIC, NORMOCEPHALIC - Eye Exam Eye Exam: EOMI. absent: Scleral icterus - ENT Exam ENT Exam: Mucous Membranes Moist - Neck Exam Neck exam: Positive for: Normal Inspection - Respiratory Exam Respiratory Exam: absent: Rales, Rhonchi, Wheezes - Cardiovascular Exam Cardiovascular Exam: +S1, +S2. absent: Gallop, Rubs - GI/Abdominal Exam GI & Abdominal Exam: Normal Bowel Sounds, Soft. absent: Tenderness - Extremities Exam Additional comments: Bilateral erythema and dry skin on lower extremities with some patchy skin breakdown areas, particularly a left lateral ulcer of the abdomen upper aspect of the left leg over the peroneal region with some whitish discharge, no fluctuance, poor peripheral pulses Results - Vital Signs Recent Vital Signs: Last Vital Signs Temp 97.6 F 10/21/18 14:55 Pulse 82 10/22/18 10:11 Resp 15 10/22/18 07:00 BP 153/99 H 10/22/18 10:11 Pulse Ox 96 10/22/18 07:00 - Labs Result Diagrams: 10/22/18 05:00 10/22/18 06:30 Labs: Laboratory Results - last 24 hr 10/21/18 10/21/18 10/21/18 11:00 11:20 11:20 WBC 7.5 RBC 5.01 Hgb 14.1 Hct 43.0 MCV 85.8 MCH 28.1 MCHC 32.8 RDW 13.1 Plt Count 221 MPV 9.8 Neut % (Auto) 75.0 H Lymph % (Auto) 13.4 L [place] % (Auto) 8.5 H Eos % (Auto) 3.0 Baso % (Auto) 0.1 Lymph # (Auto) 1.0 L [place] # (Auto) 0.6 Eos # (Auto) 0.2 Baso # (Auto) 0.01 Absolute Neuts (auto) 5.59 Neutrophils % (Manual) Lymphocytes % (Manual) Monocytes % (Manual) ESR PT 12.5 INR 1.11 APTT 35.0 Sodium Potassium Chloride Carbon Dioxide Anion Gap BUN Creatinine Est GFR ( Amer) Est GFR (Non-Af Amer) POC Glucose (mg/dL) Random Glucose Hemoglobin A1c Calcium Phosphorus Magnesium Total Bilirubin AST ALT Alkaline Phosphatase Troponin I C-Reactive Protein NT-Pro-B Natriuret Pep Total Protein Albumin Globulin Albumin/Globulin Ratio Triglycerides Cholesterol LDL Cholesterol Direct HDL Cholesterol Procalcitonin < 0.05 L TSH 3rd Generation Urine Color Urine Appearance Urine pH Ur Specific [place] Urine Protein Urine Glucose (UA) Urine Ketones Urine Blood Urine Nitrate Urine Bilirubin Urine Urobilinogen Ur Leukocyte Esterase Urine RBC Urine WBC Ur Epithelial Cells Urine Bacteria Urine Other Urine Opiates Screen Urine Methadone Screen Ur Barbiturates Screen Ur Phencyclidine Scrn Ur Amphetamines Screen U Benzodiazepines Scrn U Oth Cocaine Metabols U Cannabinoids Screen 10/21/18 10/21/18 10/21/18 11:20 11:30 11:30 WBC RBC Hgb Hct MCV MCH MCHC RDW Plt Count MPV Neut % (Auto) Lymph % (Auto) [place] % (Auto) Eos % (Auto) Baso % (Auto) Lymph # (Auto) [place] # (Auto) Eos # (Auto) Baso # (Auto) Absolute Neuts (auto) Neutrophils % (Manual) Lymphocytes % (Manual) Monocytes % (Manual) ESR 32 H PT INR APTT Sodium 144 Potassium 4.7 Chloride 108 H Carbon Dioxide 29 Anion Gap 12 BUN 19 Creatinine 1.4 Est GFR ( Amer) 60 Est GFR (Non-Af Amer) 49 POC Glucose (mg/dL) Random Glucose 85 Hemoglobin A1c Calcium 9.5 Phosphorus 3.1 Magnesium 2.2 Total Bilirubin 0.6 AST 20 ALT 20 Alkaline Phosphatase 81 Troponin I < 0.01 C-Reactive Protein NT-Pro-B Natriuret Pep 433 Total Protein 7.3 Albumin 4.2 Globulin 3.2 Albumin/Globulin Ratio 1.3 Triglycerides Cholesterol LDL Cholesterol Direct HDL Cholesterol Procalcitonin TSH 3rd Generation Urine Color Urine Appearance Urine pH Ur Specific [place] Urine Protein Urine Glucose (UA) Urine Ketones Urine Blood Urine Nitrate Urine Bilirubin Urine Urobilinogen Ur Leukocyte Esterase Urine RBC Urine WBC Ur Epithelial Cells Urine Bacteria Urine Other Urine Opiates Screen Urine Methadone Screen Ur Barbiturates Screen Ur Phencyclidine Scrn Ur Amphetamines Screen U Benzodiazepines Scrn U Oth Cocaine Metabols U Cannabinoids Screen 10/21/18 10/21/18 10/21/18 11:30 11:30 11:30 WBC RBC Hgb Hct MCV MCH MCHC RDW Plt Count MPV Neut % (Auto) Lymph % (Auto) [place] % (Auto) Eos % (Auto) Baso % (Auto) Lymph # (Auto) [place] # (Auto) Eos # (Auto) Baso # (Auto) Absolute Neuts (auto) Neutrophils % (Manual) Lymphocytes % (Manual) Monocytes % (Manual) ESR PT INR APTT Sodium Potassium Chloride Carbon Dioxide Anion Gap BUN Creatinine Est GFR ( Amer) Est GFR (Non-Af Amer) POC Glucose (mg/dL) Random Glucose Hemoglobin A1c 5.3 Calcium Phosphorus Magnesium Total Bilirubin AST ALT Alkaline Phosphatase Troponin I C-Reactive Protein 27.10 H NT-Pro-B Natriuret Pep Total Protein Albumin Globulin Albumin/Globulin Ratio Triglycerides 166 H Cholesterol 191 LDL Cholesterol Direct 110 HDL Cholesterol 44 Procalcitonin TSH 3rd Generation 1.63 Urine Color Urine Appearance Urine pH Ur Specific [place] Urine Protein Urine Glucose (UA) Urine Ketones Urine Blood Urine Nitrate Urine Bilirubin Urine Urobilinogen Ur Leukocyte Esterase Urine RBC Urine WBC Ur Epithelial Cells Urine Bacteria Urine Other Urine Opiates Screen Urine Methadone Screen Ur Barbiturates Screen Ur Phencyclidine Scrn Ur Amphetamines Screen U Benzodiazepines Scrn U Oth Cocaine Metabols U Cannabinoids Screen 10/21/18 10/21/18 10/21/18 14:30 14:40 16:49 WBC RBC Hgb Hct MCV MCH MCHC RDW Plt Count MPV Neut % (Auto) Lymph % (Auto) [place] % (Auto) Eos % (Auto) Baso % (Auto) Lymph # (Auto) [place] # (Auto) Eos # (Auto) Baso # (Auto) Absolute Neuts (auto) Neutrophils % (Manual) Lymphocytes % (Manual) Monocytes % (Manual) ESR PT INR APTT Sodium Potassium Chloride Carbon Dioxide Anion Gap BUN Creatinine Est GFR ( Amer) Est GFR (Non-Af Amer) POC Glucose (mg/dL) 93 Random Glucose Hemoglobin A1c Calcium Phosphorus Magnesium Total Bilirubin AST ALT Alkaline Phosphatase Troponin I C-Reactive Protein NT-Pro-B Natriuret Pep Total Protein Albumin Globulin Albumin/Globulin Ratio Triglycerides Cholesterol LDL Cholesterol Direct HDL Cholesterol Procalcitonin TSH 3rd Generation Urine Color Yellow Urine Appearance Clear Urine pH 7.5 Ur Specific [place] 1.020 Urine Protein 30 H Urine Glucose (UA) Negative Urine Ketones Negative Urine Blood Negative Urine Nitrate Negative Urine Bilirubin Negative Urine Urobilinogen 0.2 Ur Leukocyte Esterase Negative Urine RBC 0 - 2 Urine WBC 0 - 2 Ur Epithelial Cells None Urine Bacteria Few Urine Other Fiber Urine Opiates Screen Negative Urine Methadone Screen Negative Ur Barbiturates Screen Negative Ur Phencyclidine Scrn Negative Ur Amphetamines Screen Negative U Benzodiazepines Scrn Negative U Oth Cocaine Metabols Negative U Cannabinoids Screen Negative 10/21/18 10/22/18 10/22/18 21:12 05:00 06:30 WBC 12.1 H D RBC 5.03 Hgb 13.9 L Hct 42.4 MCV 84.3 MCH 27.6 MCHC 32.8 RDW 13.1 Plt Count 233 MPV 10.3 Neut % (Auto) 88.7 H Lymph % (Auto) 3.0 L [place] % (Auto) 7.8 H Eos % (Auto) 0.4 L Baso % (Auto) 0.1 Lymph # (Auto) 0.4 L [place] # (Auto) 1.0 H Eos # (Auto) 0.1 Baso # (Auto) 0.01 Absolute Neuts (auto) 10.75 H Neutrophils % (Manual) 91 H Lymphocytes % (Manual) 3 L Monocytes % (Manual) 6 ESR PT INR APTT Sodium 141 Potassium 4.2 Chloride 105 Carbon Dioxide 27 Anion Gap 13 BUN 19 Creatinine 1.4 Est GFR ( Amer) 60 Est GFR (Non-Af Amer) 49 POC Glucose (mg/dL) 124 H Random Glucose 122 H Hemoglobin A1c Calcium 9.5 Phosphorus Magnesium Total Bilirubin 1.0 AST 45 ALT 21 Alkaline Phosphatase 71 Troponin I C-Reactive Protein NT-Pro-B Natriuret Pep Total Protein 7.4 Albumin 3.9 Globulin 3.6 Albumin/Globulin Ratio 1.1 Triglycerides Cholesterol LDL Cholesterol Direct HDL Cholesterol Procalcitonin TSH 3rd Generation Urine Color Urine Appearance Urine pH Ur Specific [place] Urine Protein Urine Glucose (UA) Urine Ketones Urine Blood Urine Nitrate Urine Bilirubin Urine Urobilinogen Ur Leukocyte Esterase Urine RBC Urine WBC Ur Epithelial Cells Urine Bacteria Urine Other Urine Opiates Screen Urine Methadone Screen Ur Barbiturates Screen Ur Phencyclidine Scrn Ur Amphetamines Screen U Benzodiazepines Scrn U Oth Cocaine Metabols U Cannabinoids Screen Assessment & Plan - Assessment and Plan (Free Text) Assessment: 77-year-old male with a past medical history of diabetes and hypertension who presents for complaints of bilateral lower extremity pain and erythema with an ulcer on the left leg. Infectious disease consultation was requested. Plan: Severe sepsis with TOVA and SIRS with leukocytosis, tachycardia, tachypnea likely secondary to left leg ulcer/cellulitis Hypertensive emergency Podiatry following, recs appreciated To have arterial studies Afebrile Under ICU care for his hypertensive emergency We will empirically place the patient on ceftaroline 400 mg Blood cultures ordered Wound cultures ordered MRSA screen Hemoglobin A1c is 5.3, not diabetic We will follow with you Patient was seen and examined and case to be discussed with attending physician Thank you for the pleasure of participating in the care of this patient - Date & Time Date: 10/22/18 Time: 07:00 <Fantasma Lynne - Last Filed: 10/22/18 16:23> Meds - Medications Medications: Current Medications Acetaminophen (Tylenol 325mg Tab) 650 mg PO Q6H PRN PRN Reason: Pain, Mild (1-3) Last Admin: 10/21/18 16:59 Dose: 650 mg Heparin Sodium (Porcine) (Heparin) 5,000 units SC Q8 [facility]; Protocol Last Admin: 10/22/18 14:45 Dose: 5,000 units Hydrochlorothiazide (Microzide) 12.5 mg PO DAILY [facility] Last Admin: 10/22/18 10:12 Dose: 12.5 mg Ceftaroline Fosamil 400 mg/ (Sodium Chloride) 100 mls @ 100 mls/hr IVPB Q12 [facility]; Protocol Stop: 10/28/18 22:01 Last Admin: 10/22/18 10:12 Dose: 100 mls/hr Insulin Human Regular (Humulin R Low) 0 units SC ACHS [facility]; Protocol Last Admin: 10/22/18 10:12 Dose: Not Given Lisinopril (Zestril) 20 mg PO DAILY [facility] Last Admin: 10/22/18 10:11 Dose: 20 mg Pantoprazole Sodium (Protonix Ec Tab) 40 mg PO 0600 [facility] Last Admin: 10/22/18 06:02 Dose: 40 mg Tramadol HCl (Ultram) 50 mg PO TID PRN PRN Reason: Pain, severe (8-10) Results - Vital Signs Recent Vital Signs: Last Vital Signs Temp 97.6 F 10/21/18 14:55 Pulse 92 H 10/22/18 12:00 Resp 15 10/22/18 12:00 BP 143/73 10/22/18 12:00 Pulse Ox 82 L 10/22/18 12:00 - Labs Result Diagrams: 10/22/18 05:00 10/22/18 06:30 Labs: Laboratory Results - last 24 hr 10/21/18 10/21/18 10/21/18 11:00 11:30 11:30 WBC RBC Hgb Hct MCV MCH MCHC RDW Plt Count MPV Neut % (Auto) Lymph % (Auto) [place] % (Auto) Eos % (Auto) Baso % (Auto) Lymph # (Auto) [place] # (Auto) Eos # (Auto) Baso # (Auto) Absolute Neuts (auto) Neutrophils % (Manual) Lymphocytes % (Manual) Monocytes % (Manual) ESR 32 H Sodium Potassium Chloride Carbon Dioxide Anion Gap BUN Creatinine Est GFR ( Amer) Est GFR (Non-Af Amer) POC Glucose (mg/dL) Random Glucose Hemoglobin A1c Calcium Total Bilirubin AST ALT Alkaline Phosphatase C-Reactive Protein 27.10 H Total Protein Albumin Globulin Albumin/Globulin Ratio Procalcitonin < 0.05 L 10/21/18 10/21/18 10/21/18 11:30 16:49 21:12 WBC RBC Hgb Hct MCV MCH MCHC RDW Plt Count MPV Neut % (Auto) Lymph % (Auto) [place] % (Auto) Eos % (Auto) Baso % (Auto) Lymph # (Auto) [place] # (Auto) Eos # (Auto) Baso # (Auto) Absolute Neuts (auto) Neutrophils % (Manual) Lymphocytes % (Manual) Monocytes % (Manual) ESR Sodium Potassium Chloride Carbon Dioxide Anion Gap BUN Creatinine Est GFR ( Amer) Est GFR (Non-Af Amer) POC Glucose (mg/dL) 93 124 H Random Glucose Hemoglobin A1c 5.3 Calcium Total Bilirubin AST ALT Alkaline Phosphatase C-Reactive Protein Total Protein Albumin Globulin Albumin/Globulin Ratio Procalcitonin 10/22/18 10/22/18 10/22/18 05:00 06:30 11:46 WBC 12.1 H D RBC 5.03 Hgb 13.9 L Hct 42.4 MCV 84.3 MCH 27.6 MCHC 32.8 RDW 13.1 Plt Count 233 MPV 10.3 Neut % (Auto) 88.7 H Lymph % (Auto) 3.0 L [place] % (Auto) 7.8 H Eos % (Auto) 0.4 L Baso % (Auto) 0.1 Lymph # (Auto) 0.4 L [place] # (Auto) 1.0 H Eos # (Auto) 0.1 Baso # (Auto) 0.01 Absolute Neuts (auto) 10.75 H Neutrophils % (Manual) 91 H Lymphocytes % (Manual) 3 L Monocytes % (Manual) 6 ESR Sodium 141 Potassium 4.2 Chloride 105 Carbon Dioxide 27 Anion Gap 13 BUN 19 Creatinine 1.4 Est GFR ( Amer) 60 Est GFR (Non-Af Amer) 49 POC Glucose (mg/dL) 116 H Random Glucose 122 H Hemoglobin A1c Calcium 9.5 Total Bilirubin 1.0 AST 45 ALT 21 Alkaline Phosphatase 71 C-Reactive Protein Total Protein 7.4 Albumin 3.9 Globulin 3.6 Albumin/Globulin Ratio 1.1 Procalcitonin Attending/Attestation - Attestation I have personally seen and examined this patient.: Yes I have fully participated in the care of the patient.: Yes I have reviewed all pertinent clinical information: Yes
--- NOTE | 2018-10-22 11:35 | CP.PCM.PN ---
<Tanner Johnson - Last Filed: 10/22/18 13:15> Subjective - Date & Time of Evaluation Date of Evaluation: 10/22/18 Time of Evaluation: 11:31 - Subjective Subjective: Tanner Johnson DO PGY1 - Internal Medicine Senior Graphic Designer - Hospitalist Progress Note Patient was seen, and examined at bedside, no acute events overnight. Patient complaining of LLE pain overnight; started on dilaudid by cad application support specialist team Afebrile, no abd pain, cp, sob, palpitations Objective - Vital Signs/Intake and Output Vital Signs (last 24 hours): Temp Pulse Resp BP Pulse Ox 97.6 F 82 15 153/99 H 96 10/21/18 14:55 10/22/18 10:11 10/22/18 07:00 10/22/18 10:11 10/22/18 07:00 Intake and Output: 10/22/18 10/22/18 06:59 18:59 Intake Total 400 Balance 400 - Medications Medications: Current Medications Acetaminophen (Tylenol 325mg Tab) 650 mg PO Q6H PRN PRN Reason: Pain, Mild (1-3) Last Admin: 10/21/18 16:59 Dose: 650 mg Heparin Sodium (Porcine) (Heparin) 5,000 units SC Q8 [facility]; Protocol Last Admin: 10/22/18 06:02 Dose: 5,000 units Hydrochlorothiazide (Microzide) 12.5 mg PO DAILY [facility] Last Admin: 10/22/18 10:12 Dose: 12.5 mg Hydromorphone HCl (Dilaudid) 1 mg IVP Q4H PRN PRN Reason: Pain, severe (8-10) Last Admin: 10/22/18 04:40 Dose: 1 mg Nicardipine HCl (Cardene Iv Premix) 20 mg in 200 mls @ 50 mls/hr IV .Q4H PRN; Protocol PRN Reason: TITRATE PER MD ORDER Last Admin: 10/22/18 05:57 Dose: 2.5 mg/hr, 25 mls/hr Ceftaroline Fosamil 400 mg/ (Sodium Chloride) 100 mls @ 100 mls/hr IVPB Q12 [facility]; Protocol Stop: 10/28/18 22:01 Last Admin: 10/22/18 10:12 Dose: 100 mls/hr Insulin Human Regular (Humulin R Low) 0 units SC ACHS [facility]; Protocol Last Admin: 10/22/18 10:12 Dose: Not Given Lisinopril (Zestril) 20 mg PO DAILY [facility] Last Admin: 10/22/18 10:11 Dose: 20 mg Pantoprazole Sodium (Protonix Ec Tab) 40 mg PO 0600 [facility] Last Admin: 10/22/18 06:02 Dose: 40 mg - Labs Labs: 10/22/18 05:00 10/22/18 06:30 PT 12.5 SECONDS (9.4-12.5) 10/21/18 11:20 INR 1.11 10/21/18 11:20 APTT 35.0 Seconds (26.9-38.3) 10/21/18 11:20 - Constitutional Appears: Well, Non-toxic - Head Exam Head Exam: ATRAUMATIC, NORMOCEPHALIC - Eye Exam Eye Exam: EOMI, PERRL - Respiratory Exam Respiratory Exam: Clear to Ausculation Bilateral, NORMAL BREATHING PATTERN - Cardiovascular Exam Cardiovascular Exam: RRR - GI/Abdominal Exam GI & Abdominal Exam: Soft, Normal Bowel Sounds - Extremities Exam Additional comments: LLE/ RLE - dressing in tact; CDI - Neurological Exam Neurological Exam: Alert, Awake, Oriented x3 - Psychiatric Exam Psychiatric exam: Normal Affect, Normal Mood - Skin Skin Exam: Dry, Intact, Warm Assessment and Plan - Assessment and Plan (Free Text) Assessment: 77M w/ a PMH of HTN, DM2 presented on 10/21 w/ c/o of BL LE pain/ cellulitis found to have elevated BP 237/134; admitted for BL cellulitis and hypertensive urgency. Plan: HTN Urgency most likely 2/2 non compliance Overnight systolic 180-160 Improved this AM to 128/78 10/21 - Renal Ultrasound: Unremarkable renal sonogram. DC Nicardipine drip Started on PO HCTZ 12.5 daily Started on PO Lisinopril 20 Daily Continue monitoring BL LE Cellulitis and Ulcer C/w Ceftaroline started 10/21 10/21 BCX 2/2 negative to date Tylenol 650mg Q6H PRN Mild pain Tramadol 50 TID PRN Severe pain 10/22 BL Ankle XR - IMPRESSION:Normal bilateral ankle radiographs. 10/22 Foot XR - Right Foot: Severe degenerative changes are seen at the midfoot at the base of the 1st through 4th metatarsals 10/22 - BL Tib/Fib XR Unremarkable radiographs of the bilateral tibia and fibula. PT Following, Appreciate Reccs DM2 ISS Regular ACHS Fingerstick ACHS Fasting B A1C 5.3 GI/DVT PPX: Protonix/Heparin Dispo: Will follow up w/ social work and PT regarding placement recommendations Patient was seen, examined, and discussed w/ attending Dr. Veda Johnson DO PGY1 - Internal Medicine Senior Graphic Designer <Caro Mccollum - Last Filed: 10/22/18 15:32> Objective - Vital Signs/Intake and Output Vital Signs (last 24 hours): Temp Pulse Resp BP Pulse Ox 97.6 F 92 H 15 143/73 82 L 10/21/18 14:55 10/22/18 12:00 10/22/18 12:00 10/22/18 12:00 10/22/18 12:00 Intake and Output: 10/22/18 10/22/18 06:59 18:59 Intake Total 400 113 Balance 400 113 - Medications Medications: Current Medications Acetaminophen (Tylenol 325mg Tab) 650 mg PO Q6H PRN PRN Reason: Pain, Mild (1-3) Last Admin: 10/21/18 16:59 Dose: 650 mg Heparin Sodium (Porcine) (Heparin) 5,000 units SC Q8 [facility]; Protocol Last Admin: 10/22/18 14:45 Dose: 5,000 units Hydrochlorothiazide (Microzide) 12.5 mg PO DAILY [facility] Last Admin: 10/22/18 10:12 Dose: 12.5 mg Nicardipine HCl (Cardene Iv Premix) 20 mg in 200 mls @ 50 mls/hr IV .Q4H PRN; Protocol PRN Reason: TITRATE PER MD ORDER Last Titration: 10/22/18 11:30 Dose: 0 mg/hr, 0 mls/hr Ceftaroline Fosamil 400 mg/ (Sodium Chloride) 100 mls @ 100 mls/hr IVPB Q12 [facility]; Protocol Stop: 10/28/18 22:01 Last Admin: 10/22/18 10:12 Dose: 100 mls/hr Insulin Human Regular (Humulin R Low) 0 units SC ACHS [facility]; Protocol Last Admin: 10/22/18 10:12 Dose: Not Given Lisinopril (Zestril) 20 mg PO DAILY [facility] Last Admin: 10/22/18 10:11 Dose: 20 mg Pantoprazole Sodium (Protonix Ec Tab) 40 mg PO 0600 [facility] Last Admin: 10/22/18 06:02 Dose: 40 mg Tramadol HCl (Ultram) 50 mg PO TID PRN PRN Reason: Pain, severe (8-10) - Labs Labs: 10/22/18 05:00 10/22/18 06:30 PT 12.5 SECONDS (9.4-12.5) 10/21/18 11:20 INR 1.11 10/21/18 11:20 APTT 35.0 Seconds (26.9-38.3) 10/21/18 11:20 Attending/Attestation - Attestation I have personally seen and examined this patient.: Yes I have fully participated in the care of the patient.: Yes I have reviewed all pertinent clinical information, including history, physical exam and plan: Yes Notes (Text): 10/22/18 15:29 Attending note; Patient seen and examined with resident in ICU> Patient is alert and awake. Denies any chest pain, shortness of breath. Denies any headache, nausea, vomiting Denies any fevers, chills. Denies any urinary, bowel symptoms. Complaining of both lower extremity swelling and redness for the past few weeks. Patient is a 77-year-old male with past medical history of hypertension and diabetes type 2 presents with bilateral lower extremity pain, erythema, and ulcer. Patient states that over the past 4-6 weeks the pain on both of his legs has become progressively worse. Patient was found to be hypertensive in ER. 1. Hypertensive urgency; blood pressure is improving. Nicardipine drip will be discontinued. Started on Lisinopril hydrochlorthiazide. Patient was not taking antihypertensive for a long time. 2. Bilateral Lower extremity cellulitis; started on IV Teflaro. ID Evaluation appreciated. Lower extremity Doppler ordered. 3. Podiatry evaluation requested for local wound care. 4. Noncompliance with follow-up; medication compliance insisted in detail. 5. Elevated blood sugar; hemoglobin A1c is 5.3. Dietary education given. Transfer out of ICU if blood pressure improves.
--- NOTE | 2018-10-22 12:49 | RAD ---
Date of service: 10/22/2018 PROCEDURE: Radiographs of the bilateral Tibiae and Fibulae. HISTORY: r/o osteo COMPARISON: None available. TECHNIQUE: Frontal and lateral views obtained. 4 views obtained. FINDINGS: BONES: RIGHT TIBIA: No fracture or destructive lesion. LEFT TIBIA: No fracture or destructive lesion. JOINT SPACES: RIGHT TIBIA: Normal. LEFT TIBIA: Normal. SOFT TISSUES: RIGHT TIBIA: Normal. LEFT TIBIA: Normal. OTHER FINDINGS: None. IMPRESSION: Unremarkable radiographs of the bilateral tibia and fibula.
--- NOTE | 2018-10-22 12:51 | RAD ---
Date of service: 10/22/2018 PROCEDURE: Bilateral Feet Radiographs. HISTORY: r/o osteo COMPARISON: None. TECHNIQUE: 6 views obtained. FINDINGS: BONES: Right Foot: Normal. No fracture. Left Foot: Normal. No fracture. JOINTS: Right Foot: Severe degenerative changes are seen at the midfoot at the base of the 1st through 4th metatarsals Left Foot: Normal. No osteoarthritis. SOFT TISSUES: Right Foot: Normal. Left Foot: Normal. OTHER FINDINGS: None. IMPRESSION: Right Foot: Severe degenerative changes are seen at the midfoot at the base of the 1st through 4th metatarsals
--- NOTE | 2018-10-22 12:52 | RAD ---
Date of service: 10/22/2018 PROCEDURE: Bilateral Ankle Radiographs. HISTORY: r/o osteo COMPARISON: None available. TECHNIQUE: 6 views obtained. FINDINGS: BONES: Right Ankle: Normal. No fracture. Left Ankle: Normal. No fracture. JOINTS: Right Ankle: Normal. No osteoarthritis. Ankle mortise maintained. Talar dome intact. Left Ankle: Normal. No osteoarthritis. Ankle mortise maintained. Talar dome intact. SOFT TISSUES: Right Ankle: Normal. Left Ankle: Normal. OTHER FINDINGS: None. IMPRESSION: Normal bilateral ankle radiographs.
--- NOTE | 2018-10-22 16:30 | US ---
PROCEDURE: Lower extremity PRITI exam HISTORY: Peripheral vascular disease with pain and ulceration. Diabetes PHYSICIAN(S): Shadi Carrera MD. FINDINGS: The resting PRITI's are moderately abnormal: Right, 0.62 and left, 0.79 The brachial systolic pressures are symmetric. The high thigh pressures and waveforms are relatively normal. There is a 66 mm gradient across the right thigh and 31 mm gradient across the left thigh. The calf PVR waveforms are moderately blunted. The findings are consistent with bilateral SFA disease. There is a 24 mm gradient across the right knee and a 30 mm gradient across the left knee. Findings are consistent with bilateral popliteal and/or trifurcation disease. The ankle and metatarsal waveforms are moderately blunted, greater on the right than the left. IMPRESSION: 1. Moderately abnormal ABIs at rest 2. Bilateral SFA disease. 3. Bilateral popliteal, trifurcation, and/or tibial disease
--- NOTE | 2018-10-22 16:46 | US ---
HISTORY: Leg pain and swelling. Evaluate for DVT PHYSICIAN(S): Shadi Carrera MD. TECHNIQUE: Duplex sonography and color-flow Doppler with graded compression were used to evaluate the deep venous systems of both lower extremities. FINDINGS: The visualized deep venous systems of both lower extremities are sonographically normal and compressible. Normal wave forms and augmentation are seen. There is no sonographic evidence for deep venous thrombosis in the visualized segments of both lower extremities. IMPRESSION: No sonographic evidence for deep venous thrombosis in the visualized segments of both lower extremities.
--- NOTE | 2018-10-22 17:51 | CARD ---
APPROVED REPORT Date of service: 10/22/2018 EXAM: Two-dimensional and M-mode echocardiogram with Doppler and color Doppler. INDICATION Hypertension/HCVD 2D DIMENSIONS Left Atrium (2D)3.7 (1.6-4.0cm)IVSd1.5 (0.7-1.1cm) LVDd4.0 (3.9-5.9cm)PWd1.4 (0.7-1.1cm) LVDs2.6 (2.5-4.0cm)FS (%) 35.9 % LVEF (%)66.2 (>50%) M-Mode DIMENSIONS Aortic Root2.70 (2.2-3.7cm)Aortic Cusp Exc.1.70 (1.5-2.0cm) Aortic Valve AoV Peak Tmxaueje255.0cm/Jacklyn Peak GR.6mmHg Mitral Valve MV E Bxencchx79.6cm/sMV A Trjethhc79.5cm/sE/A ratio0.7 TDI E/Lateral E'0.0E/Medial E'0.0 Tricuspid Valve TR Peak Vhmzavey308nx/sRAP [id number] Peak Gr.28mmHg [id number] LEFT VENTRICLE The left ventricle is normal size. There is mild concentric left ventricular hypertrophy. The left ventricular function is normal. The left ventricular ejection fraction is within the normal range. There is normal LV segmental wall motion. Transmitral Doppler flow pattern is Grade I-abnormal relaxation pattern. RIGHT VENTRICLE The right ventricle is normal size. There is normal right ventricular wall thickness. The right ventricular systolic function is normal. ATRIA The left atrium size is normal. The right atrium size is normal. AORTIC VALVE The aortic valve is moderately thickened. There is moderate aortic regurgitation. There is no aortic valvular stenosis. MITRAL VALVE The mitral valve is normal in structure. There is no mitral valve regurgitation noted. There is no mitral valve stenosis. TRICUSPID VALVE There is mild tricuspid regurgitation. There is mild pulmonary hypertension. PULMONIC VALVE There is trace pulmonic valvular regurgitation. GREAT VESSELS The aortic root is normal in size. The IVC is normal in size and collapses >50% with inspiration. PERICARDIAL EFFUSION There is no pericardial effusion. <Conclusion> There is mild concentric left ventricular hypertrophy. The left ventricular function is normal. The left ventricular ejection fraction is within the normal range. There is normal LV segmental wall motion. Transmitral Doppler flow pattern is Grade I-abnormal relaxation pattern. There is moderate aortic regurgitation. There is mild tricuspid regurgitation. There is mild pulmonary hypertension.
[2018-10-23] MEDS: Insulin Reg-LOW-Coverage SC SCH ×5 (00:08→21:40)
[2018-10-23 07:04] LABS: BASO # 0.01 K/mm3 (0.0-2.0); BASO % 0.1 % (0.0-3.0); EOS # 0.2 (0.0-0.7); EOS % 1.8 % (1.5-5.0); LYMPH # 0.6 (1.2-3.4); LYMPH % 6.8 % (22.0-35.0); MEAN CELL VOLUME 85.9 fl (80.0-105.0); MEAN CORPUSCULAR HEMOGLOBIN 27.4 pg (25.0-35.0); MEAN CORPUSCULAR HGB CONC 31.9 g/dl (31.0-37.0); MEAN PLATELET VOLUME 9.7 fl (7.0-11.0); MONO # 1.1 (0.1-0.6); MONO % 12.2 % (1.0-6.0); RBC 4.74 10^6/uL (3.5-6.1); RED CELL DISTRIBUTION WIDTH 13.3 % (11.5-14.5); WHITE BLOOD COUNT 9.3 10^3/uL (4.5-11.0)
[2018-10-23 07:07] LABS: ALB/GLOB RATIO 1.3 (1.1-1.8); ALBUMIN 3.7 g/dL (3.0-4.8)
[2018-10-23] MEDS: Pantoprazole 40 mg EC Tab PO SCH (07:10)
--- NOTE | 2018-10-23 10:02 | CP.PCM.PN ---
<Ana Luisa Box - Last Filed: 10/23/18 09:57> Subjective - Date & Time of Evaluation Date of Evaluation: 10/23/18 Time of Evaluation: 09:58 - Subjective Subjective: Podiatry consult note for Dr. Farzier 77 year old male patient, seen and examined at bedside this morning with Dr. Frazier for bilateral lower extremity edema, superficial ulcerations, and erythema. Patient resting comfortably and in NAD. He reports mild pain to b/l lower extremities. Denies nausea/vomiting/fever/shortness of breath/chest pain. Objective - Vital Signs/Intake and Output Vital Signs (last 24 hours): Temp Pulse Resp BP Pulse Ox 99 F 79 20 162/90 H 96 10/23/18 06:00 10/23/18 06:00 10/23/18 06:00 10/23/18 06:00 10/22/18 18:00 Intake and Output: 10/23/18 10/23/18 06:59 18:59 Intake Total 0 Balance 0 - Medications Medications: Current Medications Acetaminophen (Tylenol 325mg Tab) 650 mg PO Q6H PRN PRN Reason: Pain, Mild (1-3) Last Admin: 10/21/18 16:59 Dose: 650 mg Betamethasone/Clotrimazole (Lotrisone) 0 gm TOP BID [facility] Heparin Sodium (Porcine) (Heparin) 5,000 units SC Q8 [facility]; Protocol Last Admin: 10/23/18 07:10 Dose: 5,000 units Hydrochlorothiazide (Microzide) 12.5 mg PO DAILY [facility] Last Admin: 10/22/18 10:12 Dose: 12.5 mg Ceftaroline Fosamil 400 mg/ (Sodium Chloride) 100 mls @ 100 mls/hr IVPB Q12 [facility]; Protocol Stop: 10/28/18 22:01 Last Admin: 10/22/18 23:20 Dose: 100 mls/hr Insulin Human Regular (Humulin R Low) 0 units SC ACHS [facility]; Protocol Last Admin: 10/23/18 08:21 Dose: Not Given Lisinopril (Zestril) 20 mg PO DAILY [facility] Last Admin: 10/22/18 10:30 Dose: Not Given Mupirocin (Bactroban Ointment) 0 gm TOP BID [facility] Pantoprazole Sodium (Protonix Ec Tab) 40 mg PO 0600 [facility] Last Admin: 10/23/18 07:10 Dose: 40 mg Tramadol HCl (Ultram) 50 mg PO TID PRN PRN Reason: Pain, severe (8-10) - Labs Labs: 10/23/18 06:00 10/23/18 06:00 PT 12.5 SECONDS (9.4-12.5) 10/21/18 11:20 INR 1.11 10/21/18 11:20 APTT 35.0 Seconds (26.9-38.3) 10/21/18 11:20 - Constitutional Appears: Non-toxic, No Acute Distress - Head Exam Head Exam: ATRAUMATIC, NORMOCEPHALIC - Extremities Exam Additional comments: Bilateral Lower Extremity Exam VASC: DP and PT 1/4 bilaterally, CFT delayed X 10, +2 pitting edema noted to the legs, and feet, TG warm to warm, increased to the L > R NEURO: diminished sensation noted bilaterally with positive tingling and numbness DERM: multiple superficial ulcerations with edema noted to bilateral lower extremity L > R, with dry excoriated lesions as well, positive weeping from the LLE, no purulence noted, significant interdigital maceration noted with positive malodor, positive erythema L> R from the tibial tuberosity extending distally to the feet, no wound probe to bone, no tunneling, no tracking ORTHO: pain on palpation to the lower extremity, unable to assess due to decreased patient cooperation - Neurological Exam Neurological Exam: Alert, Awake, Oriented x3 - Psychiatric Exam Psychiatric exam: Normal Affect, Normal Mood - Skin Skin Exam: Warm Assessment and Plan - Assessment and Plan (Free Text) Assessment: 77 year 0ldo male patient seen and evaluated with bilateral lower extremity ulcerations, edema and erythemad Plan: Patient seen and evaluated Plan discussed with attending Dr. Matthews Ordered Bilateral Tib-Fib, Ankle and Foot X-rays; degenerative changes at the midfoot metatarsals 2-4 Ordered Wound culture of the L foot; pending Ordered PRITI/PVR Bilateral Lower Extremity; moderately abnormal PRITI at rest, Bilateral SFA disease, Bilateral popliteal, trifurcation, and/or tibial disease Venous Duplex- Negative bilaterally Patient legs scrubbed and wounds dressed with xerform, betadine strips between digits, and dry sterile dressing Continue medical management as per primary Continue IV Abx No surgical intervention at this time Will continue to follow <Pipo Frazier - Last Filed: 10/26/18 07:54> Objective - Vital Signs/Intake and Output Vital Signs (last 24 hours): Temp Pulse Resp BP Pulse Ox 98.2 F 65 18 136/73 96 10/26/18 06:00 10/26/18 06:00 10/26/18 06:00 10/26/18 06:00 10/26/18 06:00 Intake and Output: 10/26/18 10/26/18 06:59 18:59 Intake Total 120 Output Total 500 Balance -380 - Medications Medications: Current Medications Acetaminophen (Tylenol 325mg Tab) 650 mg PO Q6H PRN PRN Reason: Pain, Mild (1-3) Last Admin: 10/21/18 16:59 Dose: 650 mg Amlodipine Besylate (Norvasc) 10 mg PO DAILY [facility] Last Admin: 10/25/18 10:43 Dose: 10 mg Aspirin (Ecotrin) 81 mg PO DAILY [facility] Betamethasone/Clotrimazole (Lotrisone) 0 gm TOP BID [facility] Last Admin: 10/25/18 20:13 Dose: Not Given Ciprofloxacin (Cipro) 250 mg PO Q12 [facility]; Protocol Stop: 11/01/18 23:46 Last Admin: 10/26/18 00:52 Dose: 250 mg Ergocalciferol (Drisdol 50,000 Intl Units Cap) 1 cap PO Q7D [facility] Last Admin: 10/25/18 15:24 Dose: 1 cap Heparin Sodium (Porcine) (Heparin) 5,000 units SC Q8 [facility]; Protocol Last Admin: 10/26/18 05:38 Dose: 5,000 units Hydralazine HCl (Apresoline) 25 mg PO Q4 PRN PRN Reason: Other Hydrochlorothiazide (Microzide) 12.5 mg PO DAILY [facility] Last Admin: 10/23/18 09:59 Dose: 12.5 mg Insulin Human Regular (Humulin R Low) 0 units SC ACHS [facility]; Protocol Last Admin: 10/25/18 18:02 Dose: Not Given Labetalol HCl (Trandate) 200 mg PO BID [facility] Last Admin: 10/25/18 18:04 Dose: 200 mg Lisinopril (Zestril) 20 mg PO DAILY [facility] Last Admin: 10/23/18 09:59 Dose: 20 mg Mupirocin (Bactroban Ointment) 0 gm TOP BID [facility] Last Admin: 10/25/18 19:17 Dose: Not Given Pantoprazole Sodium (Protonix Ec Tab) 40 mg PO 0600 [facility] Last Admin: 10/26/18 05:39 Dose: 40 mg Tamsulosin HCl (Flomax) 0.4 mg PO DAILY [facility] Last Admin: 10/25/18 10:43 Dose: 0.4 mg Tramadol HCl (Ultram) 50 mg PO TID PRN PRN Reason: Pain, severe (8-10) Last Admin: 10/24/18 09:50 Dose: 50 mg - Labs Labs: 10/26/18 06:45 10/26/18 06:45 PT 12.5 SECONDS (9.4-12.5) 10/21/18 11:20 INR 1.11 10/21/18 11:20 APTT 35.0 Seconds (26.9-38.3) 10/21/18 11:20 Attending/Attestation - Attestation I have personally seen and examined this patient.: Yes I have fully participated in the care of the patient.: Yes I have reviewed all pertinent clinical information, including history, physical exam and plan: Yes
--- NOTE | 2018-10-23 10:33 | CP.PCM.PN ---
<Brandi Rose - Last Filed: 10/23/18 10:30> Subjective - Date & Time of Evaluation Date of Evaluation: 10/23/18 Time of Evaluation: 08:30 - Subjective Subjective: Brandi Rsoe PGY1 Medicine Progress Note Patient seen and examined at bedside this morning. No acute events reported overnight. Patient states his leg pain is improved. Denies any other complaints at this time. Podiatry following. Objective - Vital Signs/Intake and Output Vital Signs (last 24 hours): Temp Pulse Resp BP Pulse Ox 99 F 91 H 20 131/90 96 10/23/18 06:00 10/23/18 09:59 10/23/18 06:00 10/23/18 09:59 10/22/18 18:00 Intake and Output: 10/23/18 10/23/18 06:59 18:59 Intake Total 0 Balance 0 - Medications Medications: Current Medications Acetaminophen (Tylenol 325mg Tab) 650 mg PO Q6H PRN PRN Reason: Pain, Mild (1-3) Last Admin: 10/21/18 16:59 Dose: 650 mg Betamethasone/Clotrimazole (Lotrisone) 0 gm TOP BID [facility] Heparin Sodium (Porcine) (Heparin) 5,000 units SC Q8 [facility]; Protocol Last Admin: 10/23/18 07:10 Dose: 5,000 units Hydrochlorothiazide (Microzide) 12.5 mg PO DAILY [facility] Last Admin: 10/23/18 09:59 Dose: 12.5 mg Ceftaroline Fosamil 400 mg/ (Sodium Chloride) 100 mls @ 100 mls/hr IVPB Q12 [facility]; Protocol Stop: 10/28/18 22:01 Last Admin: 10/23/18 10:00 Dose: 100 mls/hr Insulin Human Regular (Humulin R Low) 0 units SC ACHS [facility]; Protocol Last Admin: 10/23/18 08:21 Dose: Not Given Lisinopril (Zestril) 20 mg PO DAILY [facility] Last Admin: 10/23/18 09:59 Dose: 20 mg Mupirocin (Bactroban Ointment) 0 gm TOP BID [facility] Pantoprazole Sodium (Protonix Ec Tab) 40 mg PO 0600 [facility] Last Admin: 10/23/18 07:10 Dose: 40 mg Tramadol HCl (Ultram) 50 mg PO TID PRN PRN Reason: Pain, severe (8-10) Last Admin: 10/23/18 09:58 Dose: 50 mg - Labs Labs: 10/23/18 06:00 10/23/18 06:00 PT 12.5 SECONDS (9.4-12.5) 10/21/18 11:20 INR 1.11 10/21/18 11:20 APTT 35.0 Seconds (26.9-38.3) 10/21/18 11:20 - Constitutional Appears: Well, Non-toxic - Head Exam Head Exam: ATRAUMATIC, NORMOCEPHALIC - Eye Exam Eye Exam: EOMI, PERRL - Respiratory Exam Respiratory Exam: Clear to Ausculation Bilateral, NORMAL BREATHING PATTERN - Cardiovascular Exam Cardiovascular Exam: regular rhyhtm, no tahcycardia. Absent: rubs, gallops - GI/Abdominal Exam GI & Abdominal Exam: Soft, Normal Bowel Sounds - Extremities Exam Additional comments: LLE and RLE dressing in place, non draining/bleeding. B/L upper and lower extremities are warm, non tender and dry - Neurological Exam Neurological Exam: Alert, Awake, Oriented x3 - Psychiatric Exam Psychiatric exam: Normal Affect, Normal Mood - Skin Skin Exam: Dry, Intact, Warm Assessment and Plan - Assessment and Plan (Free Text) Assessment: 77M w/ a PMH of HTN, DM2 presented on 10/21 w/ c/o of BL LE pain/ cellulitis found to have elevated BP 237/134; admitted for bilateral cellulitis and hypertensive urgency. Plan: TOVA -consider pre renal vs medication side effect -will hold HCTZ, lisinopril -bladder scan ordered -nephro on consult HTN Urgency - improving -likely 2/2 non compliance -BP this AM is 131/90 -overnight BP range 135-162/72-95 -start norvasc 10mg -hold HCTZ 12.5mg daily -hold lisinopril 20mg daily -now off nicardipene drip -Renal Ultrasound: Unremarkable renal sonogram BL Lower Extremity Cellulitis and Ulcer -continue ceftaroline day 3 -blood culture negative 24 hours -Tylenol prn moderate pain -Tramadol 50 TID prn for severe pain -10/22 Ankle XR - IMPRESSION: Normal bilateral ankle radiographs. -10/22 Foot XR - Right Foot: Severe degenerative changes are seen at the midfoot at the base of the 1st through 4th metatarsals -10/22 - Tib/Fib XR Unremarkable radiographs of the bilateral tibia and fibula. -continue physical therapy -wound care DM2 -ISS Regular ACHS -A1C 5.3 PPX -Protonix/Heparin Patient seen and case discussed with attending, Dr. Mccollum <Caro Mccollum - Last Filed: 10/23/18 12:00> Objective - Vital Signs/Intake and Output Vital Signs (last 24 hours): Temp Pulse Resp BP Pulse Ox 99 F 91 H 20 131/90 96 10/23/18 06:00 10/23/18 09:59 10/23/18 06:00 10/23/18 09:59 10/22/18 18:00 Intake and Output: 10/23/18 10/23/18 06:59 18:59 Intake Total 0 Balance 0 - Medications Medications: Current Medications Acetaminophen (Tylenol 325mg Tab) 650 mg PO Q6H PRN PRN Reason: Pain, Mild (1-3) Last Admin: 10/21/18 16:59 Dose: 650 mg Amlodipine Besylate (Norvasc) 10 mg PO DAILY [facility] Betamethasone/Clotrimazole (Lotrisone) 0 gm TOP BID [facility] Heparin Sodium (Porcine) (Heparin) 5,000 units SC Q8 [facility]; Protocol Last Admin: 10/23/18 07:10 Dose: 5,000 units Hydrochlorothiazide (Microzide) 12.5 mg PO DAILY [facility] Last Admin: 10/23/18 09:59 Dose: 12.5 mg Ceftaroline Fosamil 400 mg/ (Sodium Chloride) 100 mls @ 100 mls/hr IVPB Q12 [facility]; Protocol Stop: 10/28/18 22:01 Last Admin: 10/23/18 10:00 Dose: 100 mls/hr Insulin Human Regular (Humulin R Low) 0 units SC ACHS [facility]; Protocol Last Admin: 10/23/18 08:21 Dose: Not Given Lisinopril (Zestril) 20 mg PO DAILY [facility] Last Admin: 10/23/18 09:59 Dose: 20 mg Mupirocin (Bactroban Ointment) 0 gm TOP BID [facility] Pantoprazole Sodium (Protonix Ec Tab) 40 mg PO 0600 [facility] Last Admin: 10/23/18 07:10 Dose: 40 mg Tramadol HCl (Ultram) 50 mg PO TID PRN PRN Reason: Pain, severe (8-10) Last Admin: 10/23/18 09:58 Dose: 50 mg - Labs Labs: 10/23/18 06:00 10/23/18 06:00 PT 12.5 SECONDS (9.4-12.5) 10/21/18 11:20 INR 1.11 10/21/18 11:20 APTT 35.0 Seconds (26.9-38.3) 10/21/18 11:20 Attending/Attestation - Attestation I have personally seen and examined this patient.: Yes I have fully participated in the care of the patient.: Yes I have reviewed all pertinent clinical information, including history, physical exam and plan: Yes Notes (Text): 10/23/18 11:55 Attending note; Patient seen and examined with resident. Patient is alert and awake. Denies any chest pain, shortness of breath. Denies any headache, nausea, vomiting Denies any fevers, chills. Denies any urinary, bowel symptoms. both lower extremity swelling and redness is improving. got dressing change done by podiatry today. Patient is a 77-year-old male with past medical history of hypertension and diabetes type 2 presents with bilateral lower extremity pain, erythema, and ulcer. Patient states that over the past 4-6 weeks the pain on both of his legs has become progressively worse. Patient was found to be hypertensive in ER. 1. Hypertensive urgency; blood pressure is improved. Patient was not taking antihypertensive for a long time. 2. Bilateral Lower extremity cellulitis; started on IV Teflaro. ID Evaluation appreciated. Lower extremity Doppler is negative for DVT. Arterial Doppler showed moderate SFA disease. 3. Podiatry evaluation appreciated. continue local wound care. 4. Acute renal failure; mostly secondary to fluctuating blood pressure. Monitor closely. Nephrology evaluation requested. Renal ultrasound is normal. Bladder scan ordered. 4. Noncompliance with follow-up; medication compliance insisted in detail. 5. Elevated blood sugar; hemoglobin A1c is 5.3. Dietary education given. 6. Arthritis; x-ray of bilateral tibia-fibula is negative. Right foot x-ray showed degenerative changes. Physical therapy evaluation requested. Upon discharge the patient will follow up with [facility] in [place]. 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
--- NOTE | 2018-10-23 11:50 | CP.PCM.PN ---
Subjective - Date & Time of Evaluation Date of Evaluation: 10/23/18 Time of Evaluation: 08:55 - Subjective Subjective: Patient states his leg feels better, dressings were changed this morning by Podiatry, no fevers. No nausea. Objective - Vital Signs/Intake and Output Vital Signs (last 24 hours): Temp Pulse Resp BP Pulse Ox 99 F 77 20 152/94 H 96 10/23/18 00:01 10/23/18 02:00 10/23/18 00:01 10/23/18 00:01 10/22/18 18:00 Intake and Output: 10/23/18 10/23/18 06:59 18:59 Intake Total 0 Balance 0 - Medications Medications: Current Medications Acetaminophen (Tylenol 325mg Tab) 650 mg PO Q6H PRN PRN Reason: Pain, Mild (1-3) Last Admin: 10/21/18 16:59 Dose: 650 mg Heparin Sodium (Porcine) (Heparin) 5,000 units SC Q8 [facility]; Protocol Last Admin: 10/23/18 07:10 Dose: 5,000 units Hydrochlorothiazide (Microzide) 12.5 mg PO DAILY [facility] Last Admin: 10/22/18 10:12 Dose: 12.5 mg Ceftaroline Fosamil 400 mg/ (Sodium Chloride) 100 mls @ 100 mls/hr IVPB Q12 [facility]; Protocol Stop: 10/28/18 22:01 Last Admin: 10/22/18 23:20 Dose: 100 mls/hr Insulin Human Regular (Humulin R Low) 0 units SC ACHS [facility]; Protocol Last Admin: 10/23/18 00:08 Dose: Not Given Lisinopril (Zestril) 20 mg PO DAILY [facility] Last Admin: 10/22/18 10:30 Dose: Not Given Pantoprazole Sodium (Protonix Ec Tab) 40 mg PO 0600 [facility] Last Admin: 10/23/18 07:10 Dose: 40 mg Tramadol HCl (Ultram) 50 mg PO TID PRN PRN Reason: Pain, severe (8-10) - Labs Labs: 10/23/18 06:00 10/23/18 06:00 PT 12.5 SECONDS (9.4-12.5) 10/21/18 11:20 INR 1.11 10/21/18 11:20 APTT 35.0 Seconds (26.9-38.3) 10/21/18 11:20 - Constitutional Appears: Non-toxic, Chronically Ill - Head Exam Head Exam: NORMAL INSPECTION - Neck Exam Neck Exam: absent: Meningismus - Respiratory Exam Respiratory Exam: Decreased Breath Sounds - Cardiovascular Exam Cardiovascular Exam: +S1, +S2 - GI/Abdominal Exam GI & Abdominal Exam: Soft. absent: Tenderness - Extremities Exam Additional comments: left leg with dressings in place Assessment and Plan - Assessment and Plan (Free Text) Plan: Assessment Left leg skin and skin structure infection HTN Plan Follow up wound cx, blood cx continue Teflaro for now will continue to monitor clinically follow up further recommendations of Podiatry
[2018-10-23] MEDS: Mupirocin 2% Ointment 15 GM TUBE TOP SCH ×2 (12:57→17:14)
[2018-10-23] MEDS: Clotrimazole/Betamethasone Cream(15 gm) TOP SCH ×2 (12:57→17:14)
[2018-10-24] MEDS: Pantoprazole 40 mg EC Tab PO SCH (05:52)
[2018-10-24 08:04] LABS: BASO # 0.02 K/mm3 (0.0-2.0); BASO % 0.3 % (0.0-3.0); EOS # 0.2 (0.0-0.7); EOS % 3.5 % (1.5-5.0); HEMOGLOBIN 12.2 g/dL (14.0-18.0); LYMPH # 0.5 (1.2-3.4); MEAN CELL VOLUME 86.5 fl (80.0-105.0); MEAN CORPUSCULAR HEMOGLOBIN 27.4 pg (25.0-35.0); MEAN CORPUSCULAR HGB CONC 31.6 g/dl (31.0-37.0); MEAN PLATELET VOLUME 9.9 fl (7.0-11.0); MONO # 0.8 (0.1-0.6); MONO % 13.1 % (1.0-6.0); RBC 4.46 10^6/uL (3.5-6.1); RED CELL DISTRIBUTION WIDTH 13.4 % (11.5-14.5); WHITE BLOOD COUNT 6.4 10^3/uL (4.5-11.0)
[2018-10-24 08:59] LABS: ALB/GLOB RATIO 1.3 (1.1-1.8); ALBUMIN 3.5 g/dL (3.0-4.8); CALCIUM 8.5 mg/dL (8.4-10.5)
[2018-10-24] MEDS: Mupirocin 2% Ointment 15 GM TUBE TOP SCH (09:52)
[2018-10-24] MEDS: Clotrimazole/Betamethasone Cream(15 gm) TOP SCH (09:52)
--- NOTE | 2018-10-24 10:36 | CP.PCM.PN ---
Subjective - Date & Time of Evaluation Date of Evaluation: 10/24/18 Time of Evaluation: 09:20 - Subjective Subjective: Afebrile, not in distress. Objective - Vital Signs/Intake and Output Vital Signs (last 24 hours): Temp Pulse Resp BP Pulse Ox 99 F 91 H 20 131/90 96 10/23/18 06:00 10/23/18 09:59 10/23/18 06:00 10/23/18 09:59 10/22/18 18:00 Intake and Output: 10/23/18 10/23/18 06:59 18:59 Intake Total 0 Balance 0 - Medications Medications: Current Medications Acetaminophen (Tylenol 325mg Tab) 650 mg PO Q6H PRN PRN Reason: Pain, Mild (1-3) Last Admin: 10/21/18 16:59 Dose: 650 mg Amlodipine Besylate (Norvasc) 10 mg PO DAILY [facility] Betamethasone/Clotrimazole (Lotrisone) 0 gm TOP BID [facility] Heparin Sodium (Porcine) (Heparin) 5,000 units SC Q8 [facility]; Protocol Last Admin: 10/23/18 07:10 Dose: 5,000 units Hydrochlorothiazide (Microzide) 12.5 mg PO DAILY [facility] Last Admin: 10/23/18 09:59 Dose: 12.5 mg Ceftaroline Fosamil 400 mg/ (Sodium Chloride) 100 mls @ 100 mls/hr IVPB Q12 [facility]; Protocol Stop: 10/28/18 22:01 Last Admin: 10/23/18 10:00 Dose: 100 mls/hr Insulin Human Regular (Humulin R Low) 0 units SC ACHS [facility]; Protocol Last Admin: 10/23/18 08:21 Dose: Not Given Lisinopril (Zestril) 20 mg PO DAILY [facility] Last Admin: 10/23/18 09:59 Dose: 20 mg Mupirocin (Bactroban Ointment) 0 gm TOP BID [facility] Pantoprazole Sodium (Protonix Ec Tab) 40 mg PO 0600 [facility] Last Admin: 10/23/18 07:10 Dose: 40 mg Tramadol HCl (Ultram) 50 mg PO TID PRN PRN Reason: Pain, severe (8-10) Last Admin: 10/23/18 09:58 Dose: 50 mg - Labs Labs: 10/23/18 06:00 10/23/18 06:00 PT 12.5 SECONDS (9.4-12.5) 10/21/18 11:20 INR 1.11 10/21/18 11:20 APTT 35.0 Seconds (26.9-38.3) 10/21/18 11:20 - Constitutional Appears: Chronically Ill - Head Exam Head Exam: NORMAL INSPECTION - Respiratory Exam Respiratory Exam: Decreased Breath Sounds - Cardiovascular Exam Cardiovascular Exam: +S1, +S2 - GI/Abdominal Exam GI & Abdominal Exam: Soft. absent: Tenderness - Extremities Exam Additional comments: left lower extremity with dressings in place Assessment and Plan - Assessment and Plan (Free Text) Plan: Assessment Left leg skin and skin structure infection HTN Plan Follow up wound cx final results, showing GNB; blood cx are negative continue Teflaro for now will continue to monitor clinically follow up further recommendations of Podiatry
--- NOTE | 2018-10-24 10:50 | CP.PCM.PN ---
<Ana Luisa Box - Last Filed: 10/24/18 10:52> Subjective - Date & Time of Evaluation Date of Evaluation: 10/24/18 Time of Evaluation: 10:49 - Subjective Subjective: Podiatry consult note for Dr. Frazier 77 year old male patient, seen and examined at bedside this morning for bilateral lower extremity edema, superficial ulcerations, and erythema. Patient resting comfortably and in NAD. He reports mild pain to b/l lower extremities, more than yesterday. Denies nausea/vomiting/fever/shortness of breath/chest pain. Objective - Vital Signs/Intake and Output Vital Signs (last 24 hours): Temp Pulse Resp BP Pulse Ox 98 F 70 20 178/63 H 97 10/24/18 06:00 10/24/18 06:00 10/24/18 06:00 10/24/18 09:50 10/24/18 06:00 Intake and Output: 10/24/18 10/24/18 06:59 18:59 Intake Total 360 Output Total 2 Balance 358 - Medications Medications: Current Medications Acetaminophen (Tylenol 325mg Tab) 650 mg PO Q6H PRN PRN Reason: Pain, Mild (1-3) Last Admin: 10/21/18 16:59 Dose: 650 mg Amlodipine Besylate (Norvasc) 10 mg PO DAILY [facility] Last Admin: 10/24/18 09:50 Dose: 10 mg Betamethasone/Clotrimazole (Lotrisone) 0 gm TOP BID [facility] Last Admin: 10/24/18 09:52 Dose: 1 applic Heparin Sodium (Porcine) (Heparin) 5,000 units SC Q8 [facility]; Protocol Last Admin: 10/24/18 05:51 Dose: 5,000 units Hydrochlorothiazide (Microzide) 12.5 mg PO DAILY [facility] Last Admin: 10/23/18 09:59 Dose: 12.5 mg Ceftaroline Fosamil 400 mg/ (Sodium Chloride) 100 mls @ 100 mls/hr IVPB Q12 [facility]; Protocol Stop: 10/28/18 22:01 Last Admin: 10/23/18 21:28 Dose: 100 mls/hr Insulin Human Regular (Humulin R Low) 0 units SC ACHS [facility]; Protocol Last Admin: 10/23/18 21:40 Dose: Not Given Labetalol HCl (Trandate) 200 mg PO BID [facility] Lisinopril (Zestril) 20 mg PO DAILY [facility] Last Admin: 10/23/18 09:59 Dose: 20 mg Mupirocin (Bactroban Ointment) 0 gm TOP BID [facility] Last Admin: 10/24/18 09:52 Dose: 1 applic Pantoprazole Sodium (Protonix Ec Tab) 40 mg PO 0600 [facility] Last Admin: 10/24/18 05:52 Dose: 40 mg Tramadol HCl (Ultram) 50 mg PO TID PRN PRN Reason: Pain, severe (8-10) Last Admin: 10/24/18 09:50 Dose: 50 mg - Labs Labs: 10/24/18 07:00 10/24/18 07:00 PT 12.5 SECONDS (9.4-12.5) 10/21/18 11:20 INR 1.11 10/21/18 11:20 APTT 35.0 Seconds (26.9-38.3) 10/21/18 11:20 - Constitutional Appears: Non-toxic, No Acute Distress - Head Exam Head Exam: ATRAUMATIC, NORMOCEPHALIC - Extremities Exam Additional comments: Bilateral Lower Extremity Exam VASC: DP and PT 1/4 bilaterally, CFT delayed X 10, +2 pitting edema noted to the legs, and feet, TG warm to warm, increased to the L > R NEURO: diminished sensation noted bilaterally with positive tingling and numbness DERM: multiple superficial ulcerations with edema noted to bilateral lower extremity L > R, with dry excoriated lesions as well, positive weeping from the LLE, no purulence noted, positive erythema L> R from the tibial tuberosity extending distally to the feet, no wound probe to bone, no tunneling, no tracking ORTHO: pain on palpation to the lower extremity - Neurological Exam Neurological Exam: Alert, Awake, Oriented x3 - Psychiatric Exam Psychiatric exam: Normal Affect, Normal Mood Assessment and Plan - Assessment and Plan (Free Text) Assessment: 77 year old male patient with bilateral lower extremity ulcerations, edema and erythema Plan: Patient seen and evaluated Plan discussed with attending Dr. Frazier Ordered Bilateral Tib-Fib, Ankle and Foot X-rays; degenerative changes at the midfoot metatarsals 2-4 Ordered Wound culture of the L foot; pending Ordered PRITI/PVR Bilateral Lower Extremity; moderately abnormal PRITI at rest, All ateral SFA disease, Bilateral popliteal, trifurcation, and/or tibial disease Venous Duplex- Negative bilaterally Patient legs cleansed with saline, and dressed with bactroban, xeroform and DSD Bactroban and Lotrisone ordered to be applied to b/l lower extremities daily Continue IV Abx per ID recs; continue Teflaro for now No surgical intervention at this time <Pipo Frazier - Last Filed: 10/26/18 07:53> Objective - Vital Signs/Intake and Output Vital Signs (last 24 hours): Temp Pulse Resp BP Pulse Ox 98.2 F 65 18 136/73 96 10/26/18 06:00 10/26/18 06:00 10/26/18 06:00 10/26/18 06:00 10/26/18 06:00 Intake and Output: 10/26/18 10/26/18 06:59 18:59 Intake Total 120 Output Total 500 Balance -380 - Medications Medications: Current Medications Acetaminophen (Tylenol 325mg Tab) 650 mg PO Q6H PRN PRN Reason: Pain, Mild (1-3) Last Admin: 10/21/18 16:59 Dose: 650 mg Amlodipine Besylate (Norvasc) 10 mg PO DAILY [facility] Last Admin: 10/25/18 10:43 Dose: 10 mg Aspirin (Ecotrin) 81 mg PO DAILY [facility] Betamethasone/Clotrimazole (Lotrisone) 0 gm TOP BID [facility] Last Admin: 10/25/18 20:13 Dose: Not Given Ciprofloxacin (Cipro) 250 mg PO Q12 [facility]; Protocol Stop: 11/01/18 23:46 Last Admin: 10/26/18 00:52 Dose: 250 mg Ergocalciferol (Drisdol 50,000 Intl Units Cap) 1 cap PO Q7D [facility] Last Admin: 10/25/18 15:24 Dose: 1 cap Heparin Sodium (Porcine) (Heparin) 5,000 units SC Q8 [facility]; Protocol Last Admin: 10/26/18 05:38 Dose: 5,000 units Hydralazine HCl (Apresoline) 25 mg PO Q4 PRN PRN Reason: Other Hydrochlorothiazide (Microzide) 12.5 mg PO DAILY [facility] Last Admin: 10/23/18 09:59 Dose: 12.5 mg Insulin Human Regular (Humulin R Low) 0 units SC ACHS [facility]; Protocol Last Admin: 10/25/18 18:02 Dose: Not Given Labetalol HCl (Trandate) 200 mg PO BID [facility] Last Admin: 10/25/18 18:04 Dose: 200 mg Lisinopril (Zestril) 20 mg PO DAILY [facility] Last Admin: 10/23/18 09:59 Dose: 20 mg Mupirocin (Bactroban Ointment) 0 gm TOP BID [facility] Last Admin: 10/25/18 19:17 Dose: Not Given Pantoprazole Sodium (Protonix Ec Tab) 40 mg PO 0600 [facility] Last Admin: 10/26/18 05:39 Dose: 40 mg Tamsulosin HCl (Flomax) 0.4 mg PO DAILY [facility] Last Admin: 10/25/18 10:43 Dose: 0.4 mg Tramadol HCl (Ultram) 50 mg PO TID PRN PRN Reason: Pain, severe (8-10) Last Admin: 10/24/18 09:50 Dose: 50 mg - Labs Labs: 10/26/18 06:45 10/26/18 06:45 PT 12.5 SECONDS (9.4-12.5) 10/21/18 11:20 INR 1.11 10/21/18 11:20 APTT 35.0 Seconds (26.9-38.3) 10/21/18 11:20 Attending/Attestation - Attestation I have personally seen and examined this patient.: Yes I have fully participated in the care of the patient.: Yes I have reviewed all pertinent clinical information, including history, physical exam and plan: Yes
[2018-10-24 12:09] LABS: HEPATITIS B SURFACE AG Negative (NEGATIVE)
[2018-10-24 12:14] LABS: HEPATITIS B CORE AB NEGATIVE (NEGATIVE)
[2018-10-24 12:27] LABS: HEPATITIS C ANTIBODY NEGATIVE (NEGATIVE)
[2018-10-24 12:45] LABS: URINE BILIRUBIN NEGATIVE (NEGATIVE); URINE BLOOD SMALL (NEGATIVE); URINE GLUCOSE (UA) NEGATIVE (NEGATIVE); URINE LEUKOCYTE ESTERASE NEGATIVE Leu/uL (NEGATIVE); URINE PROTEIN NEGATIVE mg/dL (<30 mg/dL); URINE UROBILINOGEN 0.2 E.U./dL (<1 E.U./dL)
--- NOTE | 2018-10-24 12:46 | US ---
Indication: TOVA. please assess for PVR as well Technique: Bladder only/residual urine ultrasound Comparison: None available Findings: Prevoid urinary bladder: 576.2 mL Postvoid urinary bladder: 389.8 mL Urinary bladder wall appears thickened measuring up to approximately 4 mm. No significant pelvic free fluid identified. Ureteral jets were not demonstrated on limited provided images. Impression: Prevoid urinary bladder: 576.2 mL Postvoid urinary bladder: 389.8 mL Urinary bladder wall appears thickened measuring up to approximately 4 mm. Recommend correlation with urinalysis. No significant pelvic free fluid identified. Ureteral jets were not demonstrated on limited provided images.
--- NOTE | 2018-10-24 12:50 | CP.PCM.PN ---
<Brandi Rose - Last Filed: 10/24/18 12:45> Subjective - Date & Time of Evaluation Date of Evaluation: 10/24/18 Time of Evaluation: 08:30 - Subjective Subjective: Brandi Rose PGY1 Medicine Progress Note Patient seen and examined at bedside this morning. No acute events reported overnight. Patient admits to generalized weakness, denies any other complaints at this time. Hall ordered for urinary retention. Objective - Vital Signs/Intake and Output Vital Signs (last 24 hours): Temp Pulse Resp BP Pulse Ox 98 F 70 20 178/63 H 97 10/24/18 06:00 10/24/18 06:00 10/24/18 06:00 10/24/18 09:50 10/24/18 06:00 Intake and Output: 10/24/18 10/24/18 06:59 18:59 Intake Total 360 Output Total 2 Balance 358 - Medications Medications: Current Medications Acetaminophen (Tylenol 325mg Tab) 650 mg PO Q6H PRN PRN Reason: Pain, Mild (1-3) Last Admin: 10/21/18 16:59 Dose: 650 mg Amlodipine Besylate (Norvasc) 10 mg PO DAILY [facility] Last Admin: 10/24/18 09:50 Dose: 10 mg Betamethasone/Clotrimazole (Lotrisone) 0 gm TOP BID [facility] Last Admin: 10/24/18 09:52 Dose: 1 applic Heparin Sodium (Porcine) (Heparin) 5,000 units SC Q8 [facility]; Protocol Last Admin: 10/24/18 05:51 Dose: 5,000 units Hydrochlorothiazide (Microzide) 12.5 mg PO DAILY [facility] Last Admin: 10/23/18 09:59 Dose: 12.5 mg Ceftaroline Fosamil 400 mg/ (Sodium Chloride) 100 mls @ 100 mls/hr IVPB Q12 [facility]; Protocol Stop: 10/28/18 22:01 Last Admin: 10/24/18 12:03 Dose: 100 mls/hr Insulin Human Regular (Humulin R Low) 0 units SC ACHS [facility]; Protocol Last Admin: 10/23/18 21:40 Dose: Not Given Labetalol HCl (Trandate) 200 mg PO BID [facility] Lisinopril (Zestril) 20 mg PO DAILY [facility] Last Admin: 04/06/19 09:59 Dose: 20 mg Mupirocin (Bactroban Ointment) 0 gm TOP BID [facility] Last Admin: 10/24/18 09:52 Dose: 1 applic Pantoprazole Sodium (Protonix Ec Tab) 40 mg PO 0600 [facility] Last Admin: 10/24/18 05:52 Dose: 40 mg Tamsulosin HCl (Flomax) 0.4 mg PO DAILY [facility] Last Admin: 10/24/18 12:03 Dose: 0.4 mg Tramadol HCl (Ultram) 50 mg PO TID PRN PRN Reason: Pain, severe (8-10) Last Admin: 10/24/18 09:50 Dose: 50 mg - Labs Labs: 10/24/18 07:00 10/24/18 07:00 PT 12.5 SECONDS (9.4-12.5) 10/21/18 11:20 INR 1.11 10/21/18 11:20 APTT 35.0 Seconds (26.9-38.3) 10/21/18 11:20 - Constitutional Appears: Well, Non-toxic - Head Exam Head Exam: ATRAUMATIC, NORMOCEPHALIC - Eye Exam Eye Exam: EOMI, PERRL - Respiratory Exam Respiratory Exam: Clear to Ausculation Bilateral, NORMAL BREATHING PATTERN - Cardiovascular Exam Cardiovascular Exam: regular rhyhtm, no tahcycardia. Absent: rubs, gallops - GI/Abdominal Exam GI & Abdominal Exam: Soft, Normal Bowel Sounds - Extremities Exam Additional comments: LLE and RLE dressing in place, non draining/bleeding. B/L upper and lower extrem ities are warm, non tender and dry - Neurological Exam Neurological Exam: Alert, Awake, Oriented x3 - Psychiatric Exam Psychiatric exam: Normal Affect, Normal Mood - Skin Skin Exam: Dry, Intact, Warm Assessment and Plan - Assessment and Plan (Free Text) Assessment: 77M w/ a PMH of HTN, DM2 presented on 10/21 w/ c/o of BL LE pain/ cellulitis found to have elevated BP 237/134; admitted for bilateral cellulitis and hypertensive urgency. Plan: TOVA -consider pre renal vs medication side effect -Cr is worsening today -hall placed today for urinary retention -started on flomax -will hold HCTZ, lisinopril -bladder scan ordered -nephro on consult HTN Urgency - improving -likely 2/2 non compliance -BP this AM is 144/84 -start norvasc 10mg -hold HCTZ 12.5mg daily -hold lisinopril 20mg daily -now off nicardipene drip -Renal Ultrasound: Unremarkable renal sonogram BL Lower Extremity Cellulitis and Ulcer -continue ceftaroline day 4 -blood culture negative 24 hours -wound culture growing pseudomonas -Tylenol prn moderate pain -Tramadol 50 TID prn for severe pain -10/22 Ankle XR - IMPRESSION: Normal bilateral ankle radiographs. -10/22 Foot XR - Right Foot: Severe degenerative changes are seen at the midfoot at the base of the 1st through 4th metatarsals -10/22 - Tib/Fib XR Unremarkable radiographs of the bilateral tibia and fibula. -continue physical therapy -wound care DM2 -ISS Regular ACHS -A1C 5.3 PPX -Protonix/Heparin Patient seen and case discussed with attending, Dr. Mccollum <Caro Mccollum - Last Filed: 10/24/18 16:08> Objective - Vital Signs/Intake and Output Vital Signs (last 24 hours): Temp Pulse Resp BP Pulse Ox 98.3 F 89 19 161/82 H 97 10/24/18 12:00 10/24/18 14:16 10/24/18 12:00 10/24/18 14:16 10/24/18 06:00 Intake and Output: 10/24/18 10/24/18 06:59 18:59 Intake Total 360 Output Total 2 Balance 358 - Medications Medications: Current Medications Acetaminophen (Tylenol 325mg Tab) 650 mg PO Q6H PRN PRN Reason: Pain, Mild (1-3) Last Admin: 10/21/18 16:59 Dose: 650 mg Amlodipine Besylate (Norvasc) 10 mg PO DAILY [facility] Last Admin: 10/24/18 09:50 Dose: 10 mg Betamethasone/Clotrimazole (Lotrisone) 0 gm TOP BID [facility] Last Admin: 10/24/18 09:52 Dose: 1 applic Heparin Sodium (Porcine) (Heparin) 5,000 units SC Q8 [facility]; Protocol Last Admin: 10/24/18 14:17 Dose: 5,000 units Hydralazine HCl (Apresoline) 25 mg PO Q4 PRN PRN Reason: Other Hydrochlorothiazide (Microzide) 12.5 mg PO DAILY [facility] Last Admin: 10/23/18 09:59 Dose: 12.5 mg Ceftaroline Fosamil 400 mg/ (Sodium Chloride) 100 mls @ 100 mls/hr IVPB Q12 [facility]; Protocol Stop: 10/28/18 22:01 Last Admin: 10/24/18 12:03 Dose: 100 mls/hr Insulin Human Regular (Humulin R Low) 0 units SC ACHS [facility]; Protocol Last Admin: 10/23/18 21:40 Dose: Not Given Labetalol HCl (Trandate) 200 mg PO BID [facility] Last Admin: 10/24/18 14:16 Dose: 200 mg Lisinopril (Zestril) 20 mg PO DAILY [facility] Last Admin: 10/23/18 09:59 Dose: 20 mg Mupirocin (Bactroban Ointment) 0 gm TOP BID [facility] Last Admin: 10/24/18 09:52 Dose: 1 applic Pantoprazole Sodium (Protonix Ec Tab) 40 mg PO 0600 [facility] Last Admin: 10/24/18 05:52 Dose: 40 mg Tamsulosin HCl (Flomax) 0.4 mg PO DAILY [facility] Last Admin: 10/24/18 12:03 Dose: 0.4 mg Tramadol HCl (Ultram) 50 mg PO TID PRN PRN Reason: Pain, severe (8-10) Last Admin: 10/24/18 09:50 Dose: 50 mg - Labs Labs: 10/24/18 07:00 10/24/18 07:00 PT 12.5 SECONDS (9.4-12.5) 10/21/18 11:20 INR 1.11 10/21/18 11:20 APTT 35.0 Seconds (26.9-38.3) 10/21/18 11:20 Attending/Attestation - Attestation I have personally seen and examined this patient.: Yes I have fully participated in the care of the patient.: Yes I have reviewed all pertinent clinical information, including history, physical exam and plan: Yes Notes (Text): Attending note; Patient seen and examined with resident. Patient is alert and awake. Denies any chest pain, shortness of breath. Denies any headache, nausea, vomiting. tolerating diet well. Denies any fevers, chills. Patient is complaining of urinary incontinence. Bladder scan showed significant postvoid residual. Hall catheter placed. Both lower extremity swelling and redness is improving. got dressing change done by podiatry today. Patient is a 77-year-old male with past medical history of hypertension and diabetes type 2 presents with bilateral lower extremity pain, erythema, and ulcer. Patient states that over the past 4-6 weeks the pain on both of his legs has become progressively worse. Patient was found to be hypertensive in ER. 1. Hypertensive urgency; blood pressure is improved. Currently on Norvasc 2. Bilateral Lower extremity cellulitis; started on IV Teflaro. ID Evaluation appreciated. Wound cultures positive for Pseudomonas. Blood cultures negative. MRSA screen is negative. Lower extremity Doppler is negative for DVT. Arterial Doppler showed moderate SFA disease. Needs outpatient follow up with vascular surgery. 3. Podiatry evaluation appreciated. continue local wound care. redness and swelling is improved. 4. Acute renal failure; secondary to obstructive uropathy. creatinine Is 4.0 today. Hall catheter placed. Started on Flomax. nephrology evaluation appreciated. Renal ultrasound is normal. Bladder scan showed significant postvoid residual. 4. Noncompliance with follow-up; medication compliance insisted in detail. 5. Elevated blood sugar; hemoglobin A1c is 5.3. Dietary education given. 6. Arthritis; x-ray of bilateral tibia-fibula is negative. Right foot x-ray showed degenerative changes. Physical therapy evaluation appreciated. TCU recommended. We will discussed with immigration case manager for discharge planning. Upon discharge the patient will follow up with [facility] in [place]. 10/24/18 16:07
[2018-10-24 12:54] LABS: URINE APPEARANCE CLEAR (CLEAR); URINE COLOR YELLOW (YELLOW)
[2018-10-24 12:57] LABS: URINE BACTERIA MOD /hpf; URINE WBC 0 - 2 /hpf (0-6)
--- NOTE | 2018-10-24 13:42 | CP.PCM.CON ---
History of Present Illness - History of Present Illness History of Present Illness: Nephrology Consultation Note: Assessment: critical Acute Kidney Injury (N17.9) likely due to urine retention. also hemodynamic injury due to BP fluctuations contributed Diabetic chronic Kidney Disease (E11.22) Hypertensive Chronic Kidney Disease (I12.9) Chronic Kidney Disease (N18.3) Stage 3 with ? mg proteinuria (R80.9) likely due to DM/HTN HTN urgency, PVD, cellulitis mild aspen LVH Plan No acute need for renal replacement therapy at this time. Hypertension control with meds as ordered. Maintain hemodynamics stable. Avoid hypotension. Patient not on ACEI/ARB due to recent TOVA. added labetalol. can give prn hydralazine Monitor Input/Output, daily weights and renal function with basic metabolic panel started flomax. continue with hall. consider urology eval Check urine analysis, spot protein/creatinine, albumin/creatinine ratio, urine for eosinophils. bladder sonogram Secondary HTN work up with plasma renin/aldosterone, plasma metanephrine and renal artery Doppler to r/o renal artery stenosis Dose meds/antibiotics for reduced GFR. Avoid fleets enema/magnesium based laxatives. Avoid nephrotoxins/NSAIDs/ iodinated contrast (unless needed emergently) Glycemic control Further work up/management as per primary team Thanks for allowing me to participate in care of your patient. Will follow patient with you. Please call if any Qs. had d/w team Dr Jacky Jonhson Office: [phone] Chief Complaint; legs Reason for consult: Acute Kidney Injury HPI: Pt is a 77 M with hx of diabetes Mellitus (7 years), hypertension (7 years) presented with complaints of leg pain and found to have PVD, cellulitis, also with HTN urgency. developed TOVA hence renal consulted Denies OTC/herbal meds or NSAIDs No recent iodinated contrast exposure. No obvious episodes of low BP. BP was 230s range when came pt reported difficulty in urination. hall catheter placed and apprx 1L urine output soon c/o nocturia prior to this ROS: he is irritable Cardiovascular: No chest pain. Pulmonary: No shortness of breath Gastrointestinal: denies abdominal pain No nausea. No vomiting. Genitourinary: No pain while urinating. Denies blood in urine. All other negative except as mentioned in HPI Physical Examination: General Appearance: Comfortable, in no acute respiratory distress, co-operative . irritable Vitals reviewed and noted as below Head; Atraumatic, normocephalic ENT: no ulcers no thrush. Tongue is midline. Oropharynx: no rash or ulcers. EYES: Pupils are equal, round and reactive to light accommodation. Eye muscles and extraocular movement intact. Sclera is anicteric. Neck; supple no lymphadenopathy, no thyromegaly or bruit Lungs: Normal respiratory rate/effort. Breath sounds bilateral equal and clear Heart: Normal rate. s1s2 normal. No rub or gallop. Extremities: no edema. No varicose veins. chronic leg changes. has overlying dressing Neurological: Patient is alert, awake and oriented to person, place and time. No focal deficit. Strength bilateral appropriate and equal Skin: Warm and dry. Normal turgor. No rash. Palpitation: Normal elasticity for age Abdomen: Abdomen is soft. Bowel sounds +. There is no abdominal tenderness, no guarding/rigidity no organomegaly Psych: limited insight and irritable MSK: no joint tenderness or swelling. Digits and nails normal, no deformity : kidney or bladder not palpable. has hall Labs/imaging reviewed. Past medical history, past surgical history, family history, social history, allergy reviewed and noted as below Family hx: no hx of CKD. Rest non-contributory renal sono unremarkable CXR no effusions urine tox neg TSH 1.6 UA SG 1.020 30 prot no blood echo; mild conc LVH Past Patient History - Infectious Disease Hx of Infectious Diseases: None - Tetanus Immunizations Tetanus Immunization: Unknown - Past Social History Smoking Status: Never Smoked - CARDIAC Hx Hypertension: Yes - PULMONARY Hx Respiratory Disorders: No - NEUROLOGICAL Hx Transient Ischemic Attacks (TIA): Yes (about one yr ago, blurred vision resolved) - HEENT Hx HEENT Problems: Yes (RIGHT EYE SURGERY) - RENAL Hx Chronic Kidney Disease: No - ENDOCRINE/METABOLIC Hx Diabetes Mellitus Type 2: Yes - HEMATOLOGICAL/ONCOLOGICAL Hx Blood Disorders: No - INTEGUMENTARY Other/Comment: 1cm x .5 cm hard growth on left cheek, 1.5cm round brown discoloration to left roman catholic, denies skin ca. Ball of left foot 1cm x .5 cm callous, browm discolored skin to right leg below knee, behind both ankles brown dry skin, brown dry skin between toes on both feet - MUSCULOSKELETAL/RHEUMATOLOGICAL Hx Falls: No - GASTROINTESTINAL Hx Gastrointestinal Disorders: No - GENITOURINARY/GYNECOLOGICAL Hx Genitourinary Disorders: No - PSYCHIATRIC Hx Psychophysiologic Disorder: No Hx Anxiety: No Hx Bipolar Disorder: No Hx Depression: No Hx Emotional Abuse: No Hx Hallucinations: No Hx Panic Symptoms: No Hx Paranoia: No Hx Post Traumatic Stress Disorder: No Hx Psychosis: No Hx Physical Abuse: No Hx Schizophrenia: No Hx Sexual Abuse: No Hx Substance Use: No - SURGICAL HISTORY Hx Surgeries: Yes (RIGHT EYE SURGERY) - ANESTHESIA Hx Anesthesia: No Hx Anesthesia Reactions: No Hx Malignant Hyperthermia: No Meds Allergies/Adverse Reactions: Allergies Allergy/AdvReac Type Severity Reaction Status Date / Time No Known Allergies Allergy Verified 10/21/18 20:31 - Medications Medications: Current Medications Acetaminophen (Tylenol 325mg Tab) 650 mg PO Q6H PRN PRN Reason: Pain, Mild (1-3) Last Admin: 10/21/18 16:59 Dose: 650 mg Amlodipine Besylate (Norvasc) 10 mg PO DAILY [facility] Last Admin: 10/24/18 09:50 Dose: 10 mg Betamethasone/Clotrimazole (Lotrisone) 0 gm TOP BID [facility] Last Admin: 10/24/18 09:52 Dose: 1 applic Heparin Sodium (Porcine) (Heparin) 5,000 units SC Q8 [facility]; Protocol Last Admin: 10/24/18 05:51 Dose: 5,000 units Hydrochlorothiazide (Microzide) 12.5 mg PO DAILY [facility] Last Admin: 10/23/18 09:59 Dose: 12.5 mg Ceftaroline Fosamil 400 mg/ (Sodium Chloride) 100 mls @ 100 mls/hr IVPB Q12 [facility]; Protocol Stop: 10/28/18 22:01 Last Admin: 10/24/18 12:03 Dose: 100 mls/hr Insulin Human Regular (Humulin R Low) 0 units SC ACHS [facility]; Protocol Last Admin: 10/23/18 21:40 Dose: Not Given Labetalol HCl (Trandate) 200 mg PO BID [facility] Lisinopril (Zestril) 20 mg PO DAILY [facility] Last Admin: 10/23/18 09:59 Dose: 20 mg Mupirocin (Bactroban Ointment) 0 gm TOP BID [facility] Last Admin: 10/24/18 09:52 Dose: 1 applic Pantoprazole Sodium (Protonix Ec Tab) 40 mg PO 0600 [facility] Last Admin: 10/24/18 05:52 Dose: 40 mg Tamsulosin HCl (Flomax) 0.4 mg PO DAILY [facility] Last Admin: 10/24/18 12:03 Dose: 0.4 mg Tramadol HCl (Ultram) 50 mg PO TID PRN PRN Reason: Pain, severe (8-10) Last Admin: 10/24/18 09:50 Dose: 50 mg Results - Vital Signs Recent Vital Signs: Last Vital Signs Temp 98 F 10/24/18 06:00 Pulse 70 10/24/18 06:00 Resp 20 10/24/18 06:00 BP 178/63 H 10/24/18 09:50 Pulse Ox 97 10/24/18 06:00 - Labs Result Diagrams: 10/24/18 07:00 10/24/18 07:00 Labs: Laboratory Results - last 24 hr 10/21/18 10/23/18 10/23/18 14:40 16:29 21:24 WBC RBC Hgb Hct MCV MCH MCHC RDW Plt Count MPV Neut % (Auto) Lymph % (Auto) Lynn % (Auto) Eos % (Auto) Baso % (Auto) Lymph # (Auto) Lynn # (Auto) Eos # (Auto) Baso # (Auto) Absolute Neuts (auto) Sodium Potassium Chloride Carbon Dioxide Anion Gap BUN Creatinine Est GFR ( Amer) Est GFR (Non-Af Amer) POC Glucose (mg/dL) 81 93 Random Glucose Calcium Total Bilirubin AST ALT Alkaline Phosphatase Total Protein Albumin Globulin Albumin/Globulin Ratio Aldosterone 2 Urine Color Urine Appearance Urine pH Ur Specific [place] Urine Protein Urine Glucose (UA) Urine Ketones Urine Blood Urine Nitrate Urine Bilirubin Urine Urobilinogen Ur Leukocyte Esterase Urine RBC Urine WBC Ur Epithelial Cells Urine Bacteria Ur Random Creatinine Ur Random Sodium Hep Bs Antigen Hep Bs Antibody Hep B Core IgM Ab Hepatitis C Antibody 10/24/18 10/24/18 10/24/18 07:00 07:00 07:00 WBC 6.4 D RBC 4.46 Hgb 12.2 L Hct 38.6 L MCV 86.5 MCH 27.4 MCHC 31.6 RDW 13.4 Plt Count 192 MPV 9.9 Neut % (Auto) 75.1 H Lymph % (Auto) 8.0 L Lynn % (Auto) 13.1 H Eos % (Auto) 3.5 Baso % (Auto) 0.3 Lymph # (Auto) 0.5 L Lynn # (Auto) 0.8 H Eos # (Auto) 0.2 Baso # (Auto) 0.02 Absolute Neuts (auto) 4.77 Sodium 142 Potassium 4.3 Chloride 109 H Carbon Dioxide 23 Anion Gap 14 BUN 48 H Creatinine 4.7 H Est GFR ( Amer) 15 Est GFR (Non-Af Amer) 12 POC Glucose (mg/dL) Random Glucose 68 L Calcium 8.5 Total Bilirubin 0.6 AST 33 ALT 25 Alkaline Phosphatase 59 Total Protein 6.3 Albumin 3.5 Globulin 2.7 Albumin/Globulin Ratio 1.3 Aldosterone Urine Color Urine Appearance Urine pH Ur Specific [place] Urine Protein Urine Glucose (UA) Urine Ketones Urine Blood Urine Nitrate Urine Bilirubin Urine Urobilinogen Ur Leukocyte Esterase Urine RBC Urine WBC Ur Epithelial Cells Urine Bacteria Ur Random Creatinine Ur Random Sodium Hep Bs Antigen Negative Hep Bs Antibody Hep B Core IgM Ab Negative Hepatitis C Antibody Negative 10/24/18 10/24/18 10/24/18 07:00 07:37 11:37 WBC RBC Hgb Hct MCV MCH MCHC RDW Plt Count MPV Neut % (Auto) Lymph % (Auto) Lynn % (Auto) Eos % (Auto) Baso % (Auto) Lymph # (Auto) Lynn # (Auto) Eos # (Auto) Baso # (Auto) Absolute Neuts (auto) Sodium Potassium Chloride Carbon Dioxide Anion Gap BUN Creatinine Est GFR ( Amer) Est GFR (Non-Af Amer) POC Glucose (mg/dL) 76 80 Random Glucose Calcium Total Bilirubin AST ALT Alkaline Phosphatase Total Protein Albumin Globulin Albumin/Globulin Ratio Aldosterone Urine Color Urine Appearance Urine pH Ur Specific [place] Urine Protein Urine Glucose (UA) Urine Ketones Urine Blood Urine Nitrate Urine Bilirubin Urine Urobilinogen Ur Leukocyte Esterase Urine RBC Urine WBC Ur Epithelial Cells Urine Bacteria Ur Random Creatinine Ur Random Sodium Hep Bs Antigen Hep Bs Antibody Negative Hep B Core IgM Ab Hepatitis C Antibody 10/24/18 10/24/18 10/24/18 12:25 12:25 12:25 WBC RBC Hgb Hct MCV MCH MCHC RDW Plt Count MPV Neut % (Auto) Lymph % (Auto) Lynn % (Auto) Eos % (Auto) Baso % (Auto) Lymph # (Auto) Lynn # (Auto) Eos # (Auto) Baso # (Auto) Absolute Neuts (auto) Sodium Potassium Chloride Carbon Dioxide Anion Gap BUN Creatinine Est GFR ( Amer) Est GFR (Non-Af Amer) POC Glucose (mg/dL) Random Glucose Calcium Total Bilirubin AST ALT Alkaline Phosphatase Total Protein Albumin Globulin Albumin/Globulin Ratio Aldosterone Urine Color Yellow Urine Appearance Clear Urine pH 5.0 Ur Specific [place] 1.015 Urine Protein Negative Urine Glucose (UA) Negative Urine Ketones Negative Urine Blood Small H Urine Nitrate Negative Urine Bilirubin Negative Urine Urobilinogen 0.2 Ur Leukocyte Esterase Negative Urine RBC 5 - 10 H Urine WBC 0 - 2 Ur Epithelial Cells None Urine Bacteria Mod Ur Random Creatinine 84 Ur Random Sodium 80 Hep Bs Antigen Hep Bs Antibody Hep B Core IgM Ab Hepatitis C Antibody
[2018-10-24] MEDS: Insulin Reg-LOW-Coverage SC SCH ×3 (20:01→22:03)
[2018-10-24 20:03] LABS: ALDO/PRA RATIO 5.9 Ratio (0.9-28.9)
[2018-10-25] MEDS: Pantoprazole 40 mg EC Tab PO SCH ×2 (05:40→05:54)
[2018-10-25 07:21] LABS: BASO # 0.01 K/mm3 (0.0-2.0); BASO % 0.1 % (0.0-3.0); EOS # 0.2 (0.0-0.7); EOS % 2.2 % (1.5-5.0); HEMOGLOBIN 12.8 g/dL (14.0-18.0); LYMPH # 0.8 (1.2-3.4); LYMPH % 9.5 % (22.0-35.0); MEAN CELL VOLUME 84.9 fl (80.0-105.0); MEAN CORPUSCULAR HEMOGLOBIN 27.5 pg (25.0-35.0); MEAN CORPUSCULAR HGB CONC 32.4 g/dl (31.0-37.0); MEAN PLATELET VOLUME 9.6 fl (7.0-11.0); MONO # 0.6 (0.1-0.6); MONO % 6.9 % (1.0-6.0); RBC 4.65 10^6/uL (3.5-6.1); RED CELL DISTRIBUTION WIDTH 13.2 % (11.5-14.5); WHITE BLOOD COUNT 8.1 10^3/uL (4.5-11.0)
[2018-10-25 07:32] LABS: ALB/GLOB RATIO 1.2 (1.1-1.8); ALBUMIN 3.7 g/dL (3.0-4.8); CALCIUM 8.7 mg/dL (8.4-10.5)
[2018-10-25] MEDS: Insulin Reg-LOW-Coverage SC SCH ×3 (08:00→18:02)
--- NOTE | 2018-10-25 08:52 | US ---
PROCEDURE: Bilateral renal artery duplex ultrasound. CLINICAL HISTORY: Renal artery stenosis. Uncontrolled hypertension. Evaluate for renovascular hypertension. PHYSICIAN(S): Shadi Carrera M.D. TECHNIQUE: Duplex sonography with color-flow Doppler was used to evaluate the visualized segments of the main renal arteries. The patient was evaluated in a fasting state. Imaging in a supine and decubitus position was performed. Limited evaluation of the arcuate waveforms and resistive indices were performed. FINDINGS: The overall quality of the study is adequate. The right renal parenchyma is normal in appearance. The left renal parenchyma is somewhat thin with prominent sinus fat. The right kidney measures 8.4cm in length and the left kidney measures 8.9 cm in length. No solid renal masses, abnormal calcifications, or hydronephrosis is seen. The main right renal artery is well visualized from the aorta to the hilum. The peak systolic velocity in the right main renal artery is 92 cm/sec. This is consistent with a 0 to 49% stenosis in the main right renal artery. The arcuate waveforms are normal. The resistive index is normal. The main left renal artery is somewhat tortuous. The peak systolic velocity in the main left renal artery is 89cm/sec. This corresponds to a 0 to 49% stenosis in the main left renal artery. The arcuate waveforms and resistive indices are normal. IMPRESSION: 1. The main renal arteries are well visualized. 2. No sonographically significant stenosis is identified. 3. The right renal parenchyma is normal. The left renal parenchyma is somewhat thin with prominent sinus fat. There are no solid renal masses, abnormal calcifications or hydronephrosis noted.
[2018-10-25] MEDS: Mupirocin 2% Ointment 15 GM TUBE TOP SCH ×2 (10:00→19:17)
[2018-10-25] MEDS: Clotrimazole/Betamethasone Cream(15 gm) TOP SCH ×2 (10:00→20:13)
--- NOTE | 2018-10-25 13:33 | CP.PCM.PN ---
Subjective - Date & Time of Evaluation Date of Evaluation: 10/25/18 Time of Evaluation: 13:23 - Subjective Subjective: Podiatry progress note for Dr. Matthews 77 year old male patient, seen and examined at bedside this morning for bilateral lower extremity edema, superficial ulcerations, and erythema. Patient resting comfortably and in NAD. He reports mild pain to b/l lower extremities, more than yesterday. Denies nausea/vomiting/fever/shortness of breath/chest pain. Objective - Vital Signs/Intake and Output Vital Signs (last 24 hours): Temp Pulse Resp BP Pulse Ox 98.4 F 70 18 156/74 H 92 L 10/25/18 06:00 10/25/18 06:00 10/25/18 06:00 10/25/18 10:43 10/25/18 06:00 Intake and Output: 10/25/18 10/25/18 06:59 18:59 Intake Total 320 Output Total 1150 325 Balance -830 -325 - Medications Medications: Current Medications Acetaminophen (Tylenol 325mg Tab) 650 mg PO Q6H PRN PRN Reason: Pain, Mild (1-3) Last Admin: 10/21/18 16:59 Dose: 650 mg Amlodipine Besylate (Norvasc) 10 mg PO DAILY [facility] Last Admin: 10/25/18 10:43 Dose: 10 mg Betamethasone/Clotrimazole (Lotrisone) 0 gm TOP BID [facility] Last Admin: 10/24/18 09:52 Dose: 1 applic Heparin Sodium (Porcine) (Heparin) 5,000 units SC Q8 [facility]; Protocol Last Admin: 10/25/18 05:41 Dose: 5,000 units Hydralazine HCl (Apresoline) 25 mg PO Q4 PRN PRN Reason: Other Hydrochlorothiazide (Microzide) 12.5 mg PO DAILY [facility] Last Admin: 10/23/18 09:59 Dose: 12.5 mg Ceftaroline Fosamil 400 mg/ (Sodium Chloride) 100 mls @ 100 mls/hr IVPB Q12 [facility]; Protocol Stop: 10/28/18 22:01 Last Admin: 10/25/18 10:40 Dose: 100 mls/hr Insulin Human Regular (Humulin R Low) 0 units SC ACHS [facility]; Protocol Last Admin: 10/24/18 22:03 Dose: Not Given Labetalol HCl (Trandate) 200 mg PO BID [facility] Last Admin: 10/25/18 10:44 Dose: 200 mg Lisinopril (Zestril) 20 mg PO DAILY [facility] Last Admin: 10/23/18 09:59 Dose: 20 mg Mupirocin (Bactroban Ointment) 0 gm TOP BID [facility] Last Admin: 10/24/18 09:52 Dose: 1 applic Pantoprazole Sodium (Protonix Ec Tab) 40 mg PO 0600 [facility] Last Admin: 10/25/18 05:54 Dose: Not Given Tamsulosin HCl (Flomax) 0.4 mg PO DAILY [facility] Last Admin: 10/25/18 10:43 Dose: 0.4 mg Tramadol HCl (Ultram) 50 mg PO TID PRN PRN Reason: Pain, severe (8-10) Last Admin: 10/24/18 09:50 Dose: 50 mg - Labs Labs: 10/25/18 07:00 10/25/18 07:00 PT 12.5 SECONDS (9.4-12.5) 10/21/18 11:20 INR 1.11 10/21/18 11:20 APTT 35.0 Seconds (26.9-38.3) 10/21/18 11:20 - Constitutional Appears: Non-toxic, No Acute Distress - Head Exam Head Exam: ATRAUMATIC, NORMOCEPHALIC - Extremities Exam Additional comments: Bilateral Lower Extremity Exam VASC: DP and PT 1/4 bilaterally, Cap refill delayed > 4 sec, +1 pitting edema noted to the legs, and feet, Temp gradient warm to warm b/l. NEURO: Diminished protective sensation noted bilaterally. DERM: Multiple superficial ulcerations covered with dry scab noted to bilateral lower extremity L > R, with dry excoriated lesions as well, no purulence noted, Mild erythema noted L> R from the tibial tuberosity extending distally to the feet. Toe nails dystrophic and thickened to all digits. MSK: Mild pain on palpation to b/l lower extremity - Neurological Exam Neurological Exam: Alert, Awake, Oriented x3 Assessment and Plan - Assessment and Plan (Free Text) Assessment: 77 year old male patientseen and evaluated for bilateral lower extremity stasis ulcerations. Plan: Patient seen and evaluated Plan discussed with attending Dr. Matthews Ordered Bilateral Tib-Fib, Ankle and Foot X-rays; degenerative changes at the midfoot metatarsals 2-4 Wound culture of the L foot; Pseudomonas aeruginosa Ordered PRITI/PVR Bilateral Lower Extremity; moderately abnormal PRITI at rest, All ateral SFA disease, Bilateral popliteal, trifurcation, and/or tibial disease Venous Duplex- Negative bilaterally Patient left knee dressed with bactroban and Mepilex Bactroban and Lotrisone applied to b/l lower extremities Continue IV Abx per ID recs; continue Teflaro for now No surgical intervention at this time Podiatry will continue to follow up the patient while in house.
[2018-10-25] MEDS ORDERED: Ergocalciferol 50,000 Intl Units Cap PO SCH (14:30)
--- NOTE | 2018-10-25 14:40 | CP.PCM.PCO ---
Additional Comments - Additional Comments Additional Comments: Cellulitis, PVD, abnormal PRITI's, Dr. Carrera consulted for possible intervention, continue antibiotics as per ID, repeat labs in am, reeval in am
--- NOTE | 2018-10-25 14:42 | CP.PCM.PCO ---
Physician Communication Note - Physician Communication Note Physician Communication Note: TOVA on CKD improving, renal is following.
--- NOTE | 2018-10-25 16:04 | CP.PCM.PN ---
Subjective - Date & Time of Evaluation Date of Evaluation: 10/25/18 Time of Evaluation: 16:03 - Subjective Subjective: Nephrology Consultation Note: Assessment: stbale Acute Kidney Injury (N17.9) likely due to urine retention. also hemodynamic inju ry due to BP fluctuations contributed Diabetic chronic Kidney Disease (E11.22) Hypertensive Chronic Kidney Disease (I12.9) Chronic Kidney Disease (N18.3) Stage 3 with ? mg proteinuria (R80.9) likely due to DM/HTN HTN urgency, PVD, cellulitis mild aspen LVH vit D def Plan No acute need for renal replacement therapy at this time. Hypertension control with meds as ordered. Maintain hemodynamics stable. Avoid hypotension. Patient not on ACEI/ARB due to recent TOVA (hope to resume soon). added labetalol. can give prn hydralazine Monitor Input/Output, daily weights and renal function with basic metabolic panel started flomax. continue with hall. consider urology eval weekly Vit D added Check urine analysis, spot protein/creatinine, albumin/creatinine ratio, urine for eosinophils. bladder sonogram Secondary HTN work up with plasma renin/aldosterone, plasma metanephrine and renal artery Doppler to r/o renal artery stenosis Dose meds/antibiotics for reduced GFR. Avoid fleets enema/magnesium based laxatives. Avoid nephrotoxins/NSAIDs/ iodinated contrast (unless needed emergently) Glycemic control Further work up/management as per primary team Thanks for allowing me to participate in care of your patient. Will follow patient with you. Please call if any Qs. had d/w team Dr Jacky Johnson Office: [phone] Chief Complaint; legs Reason for consult: Acute Kidney Injury HPI: Pt is a 77 M with hx of diabetes Mellitus (7 years), hypertension (7 years) presented with complaints of leg pain and found to have PVD, cellulitis, also with HTN urgency. developed TOVA hence renal consulted Denies OTC/herbal meds or NSAIDs No recent iodinated contrast exposure. No obvious episodes of low BP. BP was 230s range when came pt reported difficulty in urination. hall catheter placed and apprx 1L urine output soon c/o nocturia prior to this ROS: he is irritable Cardiovascular: No chest pain. Pulmonary: No shortness of breath Gastrointestinal: denies abdominal pain No nausea. No vomiting. Genitourinary: No pain while urinating. Denies blood in urine. All other negative except as mentioned in HPI Physical Examination: General Appearance: Comfortable, in no acute respiratory distress, co-operative . irritable Vitals reviewed and noted as below Head; Atraumatic, normocephalic ENT: no ulcers no thrush. Tongue is midline. Oropharynx: no rash or ulcers. EYES: Pupils are equal, round and reactive to light accommodation. Eye muscles and extraocular movement intact. Sclera is anicteric. Neck; supple no lymphadenopathy, no thyromegaly or bruit Lungs: Normal respiratory rate/effort. Breath sounds bilateral equal and clear Heart: Normal rate. s1s2 normal. No rub or gallop. Extremities: no edema. No varicose veins. chronic leg changes. has overlying dressing Neurological: Patient is alert, awake and oriented to person, place and time. No focal deficit. Strength bilateral appropriate and equal Skin: Warm and dry. Normal turgor. No rash. Palpitation: Normal elasticity for age Abdomen: Abdomen is soft. Bowel sounds +. There is no abdominal tenderness, no guarding/rigidity no organomegaly Psych: limited insight and irritable MSK: no joint tenderness or swelling. Digits and nails normal, no deformity : kidney or bladder not palpable. has hall Labs/imaging reviewed. Past medical history, past surgical history, family history, social history, allergy reviewed and noted as below Family hx: no hx of CKD. Rest non-contributory renal sono unremarkable CXR no effusions urine tox neg TSH 1.6 UA SG 1.020 30 prot no blood echo; mild conc LVH Objective - Vital Signs/Intake and Output Vital Signs (last 24 hours): Temp Pulse Resp BP Pulse Ox 98.2 F 66 18 103/64 96 10/25/18 14:00 10/25/18 14:00 10/25/18 14:00 10/25/18 14:00 10/25/18 14:00 Intake and Output: 10/25/18 10/25/18 06:59 18:59 Intake Total 320 Output Total 1150 325 Balance -830 -325 - Medications Medications: Current Medications Acetaminophen (Tylenol 325mg Tab) 650 mg PO Q6H PRN PRN Reason: Pain, Mild (1-3) Last Admin: 10/21/18 16:59 Dose: 650 mg Amlodipine Besylate (Norvasc) 10 mg PO DAILY [facility] Last Admin: 10/25/18 10:43 Dose: 10 mg Betamethasone/Clotrimazole (Lotrisone) 0 gm TOP BID [facility] Last Admin: 10/24/18 09:52 Dose: 1 applic Ergocalciferol (Drisdol 50,000 Intl Units Cap) 1 cap PO Q7D [facility] Last Admin: 10/25/18 15:24 Dose: 1 cap Heparin Sodium (Porcine) (Heparin) 5,000 units SC Q8 [facility]; Protocol Last Admin: 10/25/18 14:51 Dose: 5,000 units Hydralazine HCl (Apresoline) 25 mg PO Q4 PRN PRN Reason: Other Hydrochlorothiazide (Microzide) 12.5 mg PO DAILY [facility] Last Admin: 10/23/18 09:59 Dose: 12.5 mg Ceftaroline Fosamil 400 mg/ (Sodium Chloride) 100 mls @ 100 mls/hr IVPB Q12 [facility]; Protocol Stop: 10/28/18 22:01 Last Admin: 10/25/18 10:40 Dose: 100 mls/hr Insulin Human Regular (Humulin R Low) 0 units SC ACHS [facility]; Protocol Last Admin: 10/24/18 22:03 Dose: Not Given Labetalol HCl (Trandate) 200 mg PO BID [facility] Last Admin: 10/25/18 10:44 Dose: 200 mg Lisinopril (Zestril) 20 mg PO DAILY [facility] Last Admin: 10/23/18 09:59 Dose: 20 mg Mupirocin (Bactroban Ointment) 0 gm TOP BID [facility] Last Admin: 10/24/18 09:52 Dose: 1 applic Pantoprazole Sodium (Protonix Ec Tab) 40 mg PO 0600 [facility] Last Admin: 10/25/18 05:54 Dose: Not Given Tamsulosin HCl (Flomax) 0.4 mg PO DAILY [facility] Last Admin: 10/25/18 10:43 Dose: 0.4 mg Tramadol HCl (Ultram) 50 mg PO TID PRN PRN Reason: Pain, severe (8-10) Last Admin: 10/24/18 09:50 Dose: 50 mg - Labs Labs: 10/25/18 07:00 10/25/18 07:00 PT 12.5 SECONDS (9.4-12.5) 10/21/18 11:20 INR 1.11 10/21/18 11:20 APTT 35.0 Seconds (26.9-38.3) 10/21/18 11:20
--- NOTE | 2018-10-25 18:35 | CP.PCM.PN ---
<Ailyn Ac - Last Filed: 10/25/18 18:29> Subjective - Date & Time of Evaluation Date of Evaluation: 10/25/18 Time of Evaluation: 18:29 - Subjective Subjective: INTERNAL MEDICINE PROGRESS NOTE FOR DR. ALEX Ac PGY1 Pt seen and examined at bedside this am. No acute events overnight. Pt continues to reports b/l LE pain. He denies other 12 point ROS Objective - Vital Signs/Intake and Output Vital Signs (last 24 hours): Temp Pulse Resp BP Pulse Ox 98.2 F 66 18 103/64 96 10/25/18 14:00 10/25/18 14:00 10/25/18 14:00 10/25/18 14:00 10/25/18 14:00 Intake and Output: 10/25/18 10/25/18 06:59 18:59 Intake Total 320 Output Total 1150 325 Balance -830 -325 - Medications Medications: Current Medications Acetaminophen (Tylenol 325mg Tab) 650 mg PO Q6H PRN PRN Reason: Pain, Mild (1-3) Last Admin: 10/21/18 16:59 Dose: 650 mg Amlodipine Besylate (Norvasc) 10 mg PO DAILY [facility] Last Admin: 10/25/18 10:43 Dose: 10 mg Betamethasone/Clotrimazole (Lotrisone) 0 gm TOP BID [facility] Last Admin: 10/25/18 10:00 Dose: 1 applic Ergocalciferol (Drisdol 50,000 Intl Units Cap) 1 cap PO Q7D [facility] Last Admin: 10/25/18 15:24 Dose: 1 cap Heparin Sodium (Porcine) (Heparin) 5,000 units SC Q8 [facility]; Protocol Last Admin: 10/25/18 14:51 Dose: 5,000 units Hydralazine HCl (Apresoline) 25 mg PO Q4 PRN PRN Reason: Other Hydrochlorothiazide (Microzide) 12.5 mg PO DAILY [facility] Last Admin: 10/23/18 09:59 Dose: 12.5 mg Ceftaroline Fosamil 400 mg/ (Sodium Chloride) 100 mls @ 100 mls/hr IVPB Q12 [facility]; Protocol Stop: 10/28/18 22:01 Last Admin: 10/25/18 10:40 Dose: 100 mls/hr Insulin Human Regular (Humulin R Low) 0 units SC ACHS [facility]; Protocol Last Admin: 10/25/18 18:02 Dose: Not Given Labetalol HCl (Trandate) 200 mg PO BID [facility] Last Admin: 10/25/18 18:04 Dose: 200 mg Lisinopril (Zestril) 20 mg PO DAILY [facility] Last Admin: 10/23/18 09:59 Dose: 20 mg Mupirocin (Bactroban Ointment) 0 gm TOP BID [facility] Last Admin: 10/24/18 09:52 Dose: 1 applic Pantoprazole Sodium (Protonix Ec Tab) 40 mg PO 0600 [facility] Last Admin: 10/25/18 05:54 Dose: Not Given Tamsulosin HCl (Flomax) 0.4 mg PO DAILY [facility] Last Admin: 10/25/18 10:43 Dose: 0.4 mg Tramadol HCl (Ultram) 50 mg PO TID PRN PRN Reason: Pain, severe (8-10) Last Admin: 10/24/18 09:50 Dose: 50 mg - Labs Labs: 10/25/18 07:00 10/25/18 07:00 PT 12.5 SECONDS (9.4-12.5) 10/21/18 11:20 INR 1.11 10/21/18 11:20 APTT 35.0 Seconds (26.9-38.3) 10/21/18 11:20 Assessment and Plan - Assessment and Plan (Free Text) Assessment: 77M w/ a PMH of HTN, DM2 presented on 10/21 w/ c/o of BL LE pain/ cellulitis found to have elevated BP 237/134; admitted for bilateral cellulitis and hypertensive urgency. Plan: TOVA - Likely 2/2 obstructive uropathy -BUN/Cr improved today -Pt drained ~2L urine overnight with hall -continue flomax -will hold HCTZ, lisinopril -nephro on consult HTN Urgency - improving -likely 2/2 non compliance -BP's have been improving -continue amlodipine, labetalol, tamsulosin, hydralazine prn -Renal Ultrasound: Unremarkable renal sonogram. Renal duplex unremarkable BL Lower Extremity Cellulitis and Ulcer -continue ceftaroline day 5 -blood culture negative 24 hours -previous wound culture grew pseudomonas -Extremity ultrasound revealed b/l SFA disease -IR consulted for further vascular intervention. F/u recs -Tylenol prn moderate pain -Tramadol 50 TID prn for severe pain -10/22 Ankle XR - IMPRESSION: Normal bilateral ankle radiographs. -10/22 Foot XR - Right Foot: Severe degenerative changes are seen at the midfoot at the base of the 1st through 4th metatarsals -10/22 - Tib/Fib XR Unremarkable radiographs of the bilateral tibia and fibula. -continue physical therapy -wound care DM2 -ISS Regular ACHS -A1C 5.3 PPX -Protonix/Heparin Dispo: Pending TCU transfer. Awaiting IR recs Patient seen and case discussed with attending, Dr. Alex Ac PGY1 <Romi Johnson R - Last Filed: 10/25/18 23:00> Objective - Vital Signs/Intake and Output Vital Signs (last 24 hours): Temp Pulse Resp BP Pulse Ox 98.6 F 66 18 123/72 93 L 10/25/18 22:12 10/25/18 22:12 10/25/18 22:12 10/25/18 22:12 10/25/18 22:12 Intake and Output: 10/25/18 10/26/18 18:59 06:59 Output Total 325 Balance -325 - Medications Medications: Current Medications Acetaminophen (Tylenol 325mg Tab) 650 mg PO Q6H PRN PRN Reason: Pain, Mild (1-3) Last Admin: 10/21/18 16:59 Dose: 650 mg Amlodipine Besylate (Norvasc) 10 mg PO DAILY [facility] Last Admin: 10/25/18 10:43 Dose: 10 mg Aspirin (Ecotrin) 81 mg PO DAILY [facility] Betamethasone/Clotrimazole (Lotrisone) 0 gm TOP BID [facility] Last Admin: 10/25/18 20:13 Dose: Not Given Ergocalciferol (Drisdol 50,000 Intl Units Cap) 1 cap PO Q7D [facility] Last Admin: 10/25/18 15:24 Dose: 1 cap Heparin Sodium (Porcine) (Heparin) 5,000 units SC Q8 [facility]; Protocol Last Admin: 10/25/18 14:51 Dose: 5,000 units Hydralazine HCl (Apresoline) 25 mg PO Q4 PRN PRN Reason: Other Hydrochlorothiazide (Microzide) 12.5 mg PO DAILY [facility] Last Admin: 10/23/18 09:59 Dose: 12.5 mg Ceftaroline Fosamil 400 mg/ (Sodium Chloride) 100 mls @ 100 mls/hr IVPB Q12 [facility]; Protocol Stop: 10/28/18 22:01 Last Admin: 10/25/18 10:40 Dose: 100 mls/hr Insulin Human Regular (Humulin R Low) 0 units SC ACHS [facility]; Protocol Last Admin: 10/25/18 18:02 Dose: Not Given Labetalol HCl (Trandate) 200 mg PO BID [facility] Last Admin: 10/25/18 18:04 Dose: 200 mg Lisinopril (Zestril) 20 mg PO DAILY [facility] Last Admin: 10/23/18 09:59 Dose: 20 mg Mupirocin (Bactroban Ointment) 0 gm TOP BID [facility] Last Admin: 10/25/18 19:17 Dose: Not Given Pantoprazole Sodium (Protonix Ec Tab) 40 mg PO 0600 [facility] Last Admin: 10/25/18 05:54 Dose: Not Given Tamsulosin HCl (Flomax) 0.4 mg PO DAILY [facility] Last Admin: 10/25/18 10:43 Dose: 0.4 mg Tramadol HCl (Ultram) 50 mg PO TID PRN PRN Reason: Pain, severe (8-10) Last Admin: 10/24/18 09:50 Dose: 50 mg - Labs Labs: 10/25/18 07:00 10/25/18 07:00 PT 12.5 SECONDS (9.4-12.5) 10/21/18 11:20 INR 1.11 10/21/18 11:20 APTT 35.0 Seconds (26.9-38.3) 10/21/18 11:20 Attending/Attestation - Attestation I have personally seen and examined this patient.: Yes I have fully participated in the care of the patient.: Yes I have reviewed all pertinent clinical information, including history, physical exam and plan: Yes Notes (Text): Patient seen and examined by me with resident at 10:35AM on 10/25/18. Case including HPI, physical exam, and assessment and plan discussed with resident. Agree with above with following additions/corrections. Patient is a 77-year-old male with past medical history significant for hypertension and DM2 that presented to the emergency room with bilateral lower extremity pain, erythema, and ulcer. Patient states that he is feeling ok. Wants to get up and walk. States he has pain in both of his legs but they feel pretty good right now. He denies any chest pain or shortness of breath. No palpitations. No headaches or dizziness. No fevers or chills. No nausea, vomiting, or abdominal pain. No pain at hall catheter site. Physical exam: General: Awake and alert sitting up in bed in no acute distress HEENT: Normocephalic, atraumatic. Extraocular muscles intact, pupils equal and reactive, no scleral icterus. Oropharynx is pink and moist. No pharyngeal erythema or exudate appreciated. Neck is supple. Cardiovascular: Regular rhythm. Normal S1 and S2. No murmurs, rubs, or gallops appreciated Pulmonary: Normal respiratory effort. No rhonchi, rales, or wheezing appreciated. Gastrointestinal: Soft, nondistended. Nontender. Positive bowel sounds all 4 quadrants. No guarding. Musculoskeletal: Moves all extremities. Bilateral lower extremity edema. Bilateral lower extremity dressings clean, dry, and intact. Bilateral feet with thickened nails. : Hall catheter with light yellow urine output. Central nervous system: Awake and alert. Dermatologic: Skin warm and dry. Assessment and plan: Patient is a 77 year old male with past medical history significant for hypertension and DM2 that presented to the emergency room with bilateral lower extremity pain, erythema, and ulcer. 1. Hypertensive urgency. Improved. Continue Norvasc and Labetalol. Continue hydralazine as needed. HCTZ and Lisinoprilheld secondary to TOVA. 2D echo per clinical psychologist showed mild concentric left ventricular hypertrophy, left ventricle function is normal, left ventricular EF within normal range, mild pulmonary hypertension, moderate aortic regurgitation. 2.Acute kidney injury. Secondary to urinary retention. Improving with hall catheter. Renal ultrasound per radiologist showed unremarkable renal sonogram. Nephrology recommendations appreciated. Bladder ultrasound per radiologist showed prevoid urinary bladder, 567.2 ml; postvoid urinary bladder, 389.8ml; urinary bladder wall appears thickened measuring up to approximately 4mm; no significant pelvic free fluid. Renal artery duplex per radiologist showed main renal arteries well visualized, no sonographically significant stenosis identified; right renal parenchyma normal, left renal parenchyma somewhat thin with prominent sinus fat; no solid renal masses, abnormal calcifications, or hyd ronephrosis noted. 3. Bilateral lower extremity cellulitis and ulcers. Wound culture from left leg positive for Pseudomonas. ID recommendations appreciated. Continue teflaro. Podiatry recommendations appreciated. Continue local wound care. Lower extremity PRITI exam per radiologist showed moderately abnormal ABIs at rest; bilateral SFA disease; bilateral popliteal, trifurcation, and/or tibial disease. IR consulted, follow up recommendations. Will place on ASA. 4. BPH. Urinary retention. Hall catheter in place. Continue Flomax. Needs voiding trial, urology consult if not improved. 5. GI/DVT prophylaxis. Protonix/Heparin Case was discussed in detail with the patient regarding current diagnosis and treatment plan. All questions answered.
--- NOTE | 2018-10-26 04:15 | PN ---
DATE: 10/25/2018 SUBJECTIVE: The patient is in bed, in no acute distress, nontoxic. PHYSICAL EXAMINATION: VITAL SIGNS: Temperature is 98, blood pressure is 120/70, respiratory rate of 18, heart rate of 66. HEENT: Unremarkable. NECK: Supple. LUNGS: Show decreased breath sounds. HEART: Normal S1, S2. ABDOMEN: Soft. LABORATORY DATA: Reveals a white count of 8.1, hemoglobin of 12. Chemistry reveals a BUN of 39, creatinine of 2.4. Urinalysis is noted. Microbiology reveals the leg culture as pseudomonas. Review of orders reveals the patient is on Teflaro. ASSESSMENT AND PLAN: This is a 77-year-old male, with left leg skin culture with pseudomonas. We will discontinue the Teflaro and Unisom, Cipro 250 mg p.o. b.i.d. Fantasma Lynne MD
[2018-10-26] MEDS: Pantoprazole 40 mg EC Tab PO SCH (05:39)
[2018-10-26 07:11] LABS: BASO # 0.01 K/mm3 (0.0-2.0); BASO % 0.1 % (0.0-3.0); EOS # 0.3 (0.0-0.7); EOS % 3.5 % (1.5-5.0); HEMOGLOBIN 12.2 g/dL (14.0-18.0); LYMPH # 0.5 (1.2-3.4); MEAN CELL VOLUME 85.7 fl (80.0-105.0); MEAN CORPUSCULAR HEMOGLOBIN 27.3 pg (25.0-35.0); MEAN CORPUSCULAR HGB CONC 31.9 g/dl (31.0-37.0); MEAN PLATELET VOLUME 10.2 fl (7.0-11.0); MONO # 1.1 (0.1-0.6); MONO % 14.5 % (1.0-6.0); RBC 4.47 10^6/uL (3.5-6.1); RED CELL DISTRIBUTION WIDTH 13.2 % (11.5-14.5); WHITE BLOOD COUNT 7.5 10^3/uL (4.5-11.0)
[2018-10-26 07:27] LABS: ALB/GLOB RATIO 1.2 (1.1-1.8); ALBUMIN 3.5 g/dL (3.0-4.8); CALCIUM 8.5 mg/dL (8.4-10.5)
[2018-10-26] MEDS: Insulin Reg-LOW-Coverage SC SCH ×3 (08:23→16:45)
[2018-10-26] MEDS: Mupirocin 2% Ointment 15 GM TUBE TOP SCH ×2 (10:16→20:17)
--- NOTE | 2018-10-26 11:35 | CP.PCM.PCO ---
Physician Communication Note - Physician Communication Note Physician Communication Note: spoke with Kristie in vascular awaiting Dr. Carrera consult for further rec.
--- NOTE | 2018-10-26 11:41 | CP.PCM.PN ---
Subjective - Date & Time of Evaluation Date of Evaluation: 10/26/18 Time of Evaluation: 11:34 - Subjective Subjective: Podiatry progress note for Dr. Matthews 77 year old male patient, seen and examined at bedside this morning with Dr. Matthews for bilateral lower extremity edema, superficial ulcerations, and erythema. Patient resting comfortably and in NAD. He still reporting mild pain to b/l lower extremities. Denies nausea/vomiting/fever/shortness of breath/chest pain. Objective - Vital Signs/Intake and Output Vital Signs (last 24 hours): Temp Pulse Resp BP Pulse Ox 98.2 F 90 18 115/75 96 10/26/18 06:00 10/26/18 10:19 10/26/18 06:00 10/26/18 10:19 10/26/18 06:00 Intake and Output: 10/26/18 10/26/18 06:59 18:59 Intake Total 120 Output Total 500 Balance -380 - Medications Medications: Current Medications Acetaminophen (Tylenol 325mg Tab) 650 mg PO Q6H PRN PRN Reason: Pain, Mild (1-3) Last Admin: 10/21/18 16:59 Dose: 650 mg Amlodipine Besylate (Norvasc) 10 mg PO DAILY [facility] Last Admin: 10/26/18 10:15 Dose: 10 mg Aspirin (Ecotrin) 81 mg PO DAILY [facility] Last Admin: 10/26/18 10:15 Dose: 81 mg Atorvastatin Calcium (Lipitor) 40 mg PO DIN [facility] Betamethasone/Clotrimazole (Lotrisone) 0 gm TOP BID [facility] Last Admin: 10/25/18 20:13 Dose: Not Given Ciprofloxacin (Cipro) 250 mg PO Q12 [facility]; Protocol Stop: 11/01/18 23:46 Last Admin: 10/26/18 11:20 Dose: 250 mg Ergocalciferol (Drisdol 50,000 Intl Units Cap) 1 cap PO Q7D [facility] Last Admin: 10/25/18 15:24 Dose: 1 cap Heparin Sodium (Porcine) (Heparin) 5,000 units SC Q8 [facility]; Protocol Last Admin: 10/26/18 05:38 Dose: 5,000 units Hydralazine HCl (Apresoline) 25 mg PO Q4 PRN PRN Reason: Other Hydrochlorothiazide (Microzide) 12.5 mg PO DAILY [facility] Last Admin: 10/23/18 09:59 Dose: 12.5 mg Insulin Human Regular (Humulin R Low) 0 units SC [facility]; Protocol Last Admin: 10/26/18 08:23 Dose: Not Given Labetalol HCl (Trandate) 200 mg PO BID [facility] Last Admin: 10/26/18 10:19 Dose: 200 mg Lisinopril (Zestril) 20 mg PO DAILY [facility] Last Admin: 10/23/18 09:59 Dose: 20 mg Mupirocin (Bactroban Ointment) 0 gm TOP BID [facility] Last Admin: 10/25/18 19:17 Dose: Not Given Pantoprazole Sodium (Protonix Ec Tab) 40 mg PO 0600 [facility] Last Admin: 10/26/18 05:39 Dose: 40 mg Tamsulosin HCl (Flomax) 0.4 mg PO DAILY [facility] Last Admin: 10/26/18 10:15 Dose: 0.4 mg Tramadol HCl (Ultram) 50 mg PO TID PRN PRN Reason: Pain, severe (8-10) Last Admin: 10/24/18 09:50 Dose: 50 mg - Labs Labs: 10/26/18 06:45 10/26/18 06:45 PT 12.5 SECONDS (9.4-12.5) 10/21/18 11:20 INR 1.11 10/21/18 11:20 APTT 35.0 Seconds (26.9-38.3) 10/21/18 11:20 - Constitutional Appears: Well, No Acute Distress - Head Exam Head Exam: ATRAUMATIC - Extremities Exam Additional comments: Bilateral Lower Extremity Exam VASC: DP and PT 1/4 bilaterally, Cap refill delayed > 4 sec, Mild pitting edema noted to the legs, and feet, Temp gradient warm to warm b/l. NEURO: Diminished protective sensation noted bilaterally. DERM: Multiple superficial ulcerations covered with dry scab noted to bilateral lower extremity L > R, with dry excoriated lesions as well, no purulence noted, Mild erythema noted L> R from the tibial tuberosity extending distally to the feet. Toe nails dystrophic and thickened to all digits. MSK: Mild pain on palpation to b/l lower extremity. - Neurological Exam Neurological Exam: Awake, Oriented x3 Assessment and Plan - Assessment and Plan (Free Text) Assessment: 77 year old male patient seen and evaluated for bilateral lower extremity stasis ulcerations. Plan: Patient seen and evaluated Plan discussed with attending Dr. Matthews. Ordered Bilateral Tib-Fib, Ankle and Foot X-rays; degenerative changes at the midfoot metatarsals 2-4. Wound culture of the L foot; Pseudomonas aeruginosa Ordered PRITI/PVR Bilateral Lower Extremity; moderately abnormal PRITI at rest, Bilateral SFA disease, Bilateral popliteal, trifurcation, and/or tibial disease Venous Duplex- Negative bilaterally. Patient left leg dressed with xeroform and DSD. Right leg left open to air with no dressing. Bactroban and Lotrisone applied to b/l lower extremities. Continue IV Abx per ID recs. Ordered Aquaphor to be applied to b/l LE. and Nystatin powder to be applied in between the toe. No surgical intervention at this time. Podiatry will continue to follow up the patient while in house.
--- NOTE | 2018-10-26 12:30 | CP.PCM.PN ---
Subjective - Date & Time of Evaluation Date of Evaluation: 10/26/18 Time of Evaluation: 12:29 - Subjective Subjective: Nephrology Consultation Note: Assessment: stable Acute Kidney Injury (N17.9) likely due to urine retention. also hemodynamic inju ry due to BP fluctuations contributed: improving Diabetic chronic Kidney Disease (E11.22) Hypertensive Chronic Kidney Disease (I12.9) Chronic Kidney Disease (N18.3) Stage 3 with ? mg proteinuria (R80.9) likely due to DM/HTN HTN urgency, PVD, cellulitis mild aspen LVH vit D def Plan No acute need for renal replacement therapy at this time. Hypertension control with meds as ordered. Maintain hemodynamics stable. Avoid hypotension. Patient not on ACEI/ARB due to recent TOVA (Can resume now). added labetalol. can give prn hydralazine Monitor Input/Output, daily weights and renal function with basic metabolic panel started flomax. continue with hall. consider urology eval weekly Vit D added Check urine analysis, spot protein/creatinine, albumin/creatinine ratio, urine for eosinophils. bladder sonogram Secondary HTN work up with plasma renin/aldosterone, plasma metanephrine and renal artery Doppler to r/o renal artery stenosis Dose meds/antibiotics for reduced GFR. Avoid fleets enema/magnesium based laxatives. Avoid nephrotoxins/NSAIDs/ iodinated contrast (unless needed emergently) Glycemic control Further work up/management as per primary team Thanks for allowing me to participate in care of your patient. Will follow patient with you. Please call if any Qs. had d/w team Dr Jacky Johnson Office: [phone] Chief Complaint; legs Reason for consult: Acute Kidney Injury HPI: Pt is a 77 M with hx of diabetes Mellitus (7 years), hypertension (7 years) presented with complaints of leg pain and found to have PVD, cellulitis, also with HTN urgency. developed TOVA hence renal consulted Denies OTC/herbal meds or NSAIDs No recent iodinated contrast exposure. No obvious episodes of low BP. BP was 230s range when came pt reported difficulty in urination. hall catheter placed and apprx 1L urine output soon c/o nocturia prior to this ROS: Cardiovascular: No chest pain. Pulmonary: No shortness of breath Gastrointestinal: denies abdominal pain No nausea. No vomiting. Genitourinary: No pain while urinating. Denies blood in urine. All other negative except as mentioned in HPI Physical Examination: General Appearance: Comfortable, in no acute respiratory distress, co-operative . less irritable Vitals reviewed and noted as below Head; Atraumatic, normocephalic ENT: no ulcers no thrush. Tongue is midline. Oropharynx: no rash or ulcers. EYES: Pupils are equal, round and reactive to light accommodation. Eye muscles and extraocular movement intact. Sclera is anicteric. Neck; supple no lymphadenopathy, no thyromegaly or bruit Lungs: Normal respiratory rate/effort. Breath sounds bilateral equal and clear Heart: Normal rate. s1s2 normal. No rub or gallop. Extremities: no edema. No varicose veins. chronic leg changes. has overlying dressing Neurological: Patient is alert, awake and oriented to person, place and time. No focal deficit. Strength bilateral appropriate and equal Skin: Warm and dry. Normal turgor. No rash. Palpitation: Normal elasticity for age Abdomen: Abdomen is soft. Bowel sounds +. There is no abdominal tenderness, no guarding/rigidity no organomegaly Psych: limited insight and pleasant now MSK: no joint tenderness or swelling. Digits and nails normal, no deformity : kidney or bladder not palpable. has hall Labs/imaging reviewed. Past medical history, past surgical history, family history, social history, allergy reviewed and noted as below Family hx: no hx of CKD. Rest non-contributory renal sono unremarkable CXR no effusions urine tox neg TSH 1.6 UA SG 1.020 30 prot no blood echo; mild conc LVH Objective - Vital Signs/Intake and Output Vital Signs (last 24 hours): Temp Pulse Resp BP Pulse Ox 98.2 F 90 18 115/75 96 10/26/18 06:00 10/26/18 10:19 10/26/18 06:00 10/26/18 10:19 10/26/18 06:00 Intake and Output: 10/26/18 10/26/18 06:59 18:59 Intake Total 120 Output Total 500 Balance -380 - Medications Medications: Current Medications Acetaminophen (Tylenol 325mg Tab) 650 mg PO Q6H PRN PRN Reason: Pain, Mild (1-3) Last Admin: 10/21/18 16:59 Dose: 650 mg Amlodipine Besylate (Norvasc) 10 mg PO DAILY [facility] Last Admin: 10/26/18 10:15 Dose: 10 mg Aspirin (Ecotrin) 81 mg PO DAILY [facility] Last Admin: 10/26/18 10:15 Dose: 81 mg Atorvastatin Calcium (Lipitor) 40 mg PO DIN [facility] Betamethasone/Clotrimazole (Lotrisone) 0 gm TOP BID [facility] Last Admin: 10/25/18 20:13 Dose: Not Given Ciprofloxacin (Cipro) 250 mg PO Q12 [facility]; Protocol Stop: 11/01/18 23:46 Last Admin: 10/26/18 11:20 Dose: 250 mg Ergocalciferol (Drisdol 50,000 Intl Units Cap) 1 cap PO Q7D [facility] Last Admin: 10/25/18 15:24 Dose: 1 cap Heparin Sodium (Porcine) (Heparin) 5,000 units SC Q8 [facility]; Protocol Last Admin: 10/26/18 05:38 Dose: 5,000 units Hydralazine HCl (Apresoline) 25 mg PO Q4 PRN PRN Reason: Other Hydrochlorothiazide (Microzide) 12.5 mg PO DAILY [facility] Last Admin: 10/23/18 09:59 Dose: 12.5 mg Insulin Human Regular (Humulin R Low) 0 units SC ACHS [facility]; Protocol Last Admin: 10/26/18 12:18 Dose: Not Given Labetalol HCl (Trandate) 200 mg PO BID [facility] Last Admin: 10/26/18 10:19 Dose: 200 mg Lisinopril (Zestril) 20 mg PO DAILY [facility] Last Admin: 10/23/18 09:59 Dose: 20 mg Multi-Ingredient Ointment (Hydrophor Oint) 0 gm TOP Q6H [facility] Mupirocin (Bactroban Ointment) 0 gm TOP BID [facility] Last Admin: 10/25/18 19:17 Dose: Not Given Nystatin (Nystop Topical Powder) 0 gm TOP DAILY [facility] Pantoprazole Sodium (Protonix Ec Tab) 40 mg PO 0600 [facility] Last Admin: 10/26/18 05:39 Dose: 40 mg Tamsulosin HCl (Flomax) 0.4 mg PO DAILY [facility] Last Admin: 10/26/18 10:15 Dose: 0.4 mg Tramadol HCl (Ultram) 50 mg PO TID PRN PRN Reason: Pain, severe (8-10) Last Admin: 10/24/18 09:50 Dose: 50 mg - Labs Labs: 10/26/18 06:45 10/26/18 06:45 PT 12.5 SECONDS (9.4-12.5) 10/21/18 11:20 INR 1.11 10/21/18 11:20 APTT 35.0 Seconds (26.9-38.3) 10/21/18 11:20
[2018-10-26] MEDS: Petrolatum-Mineral Oil Oint (100gm) TOP SCH ×2 (14:26→18:20)
[2018-10-26] MEDS: Clotrimazole/Betamethasone Cream(15 gm) TOP SCH ×2 (14:31→18:20)
--- NOTE | 2018-10-26 18:08 | CP.PCM.PN ---
<Ailyn Ac - Last Filed: 10/26/18 17:50> Subjective - Date & Time of Evaluation Date of Evaluation: 10/26/18 Time of Evaluation: 11:00 - Subjective Subjective: INTERNAL MEDICINE PROGRESS NOTE FOR DR. GREGORY Ac PGY1 Pt seen and examined at bedside this am. No acute events overnight. Pt denying 12 point ROS today Objective - Vital Signs/Intake and Output Vital Signs (last 24 hours): Temp Pulse Resp BP Pulse Ox 98.9 F 65 18 101/64 94 L 10/26/18 14:00 10/26/18 14:00 10/26/18 14:00 10/26/18 14:00 10/26/18 14:00 Intake and Output: 10/26/18 10/26/18 06:59 18:59 Intake Total 120 Output Total 500 Balance -380 - Medications Medications: Current Medications Acetaminophen (Tylenol 325mg Tab) 650 mg PO Q6H PRN PRN Reason: Pain, Mild (1-3) Last Admin: 10/21/18 16:59 Dose: 650 mg Amlodipine Besylate (Norvasc) 10 mg PO DAILY [facility] Last Admin: 10/26/18 10:15 Dose: 10 mg Aspirin (Ecotrin) 81 mg PO DAILY [facility] Last Admin: 10/26/18 10:15 Dose: 81 mg Atorvastatin Calcium (Lipitor) 40 mg PO DIN [facility] Betamethasone/Clotrimazole (Lotrisone) 0 gm TOP BID [facility] Last Admin: 10/26/18 14:31 Dose: 1 applic Ciprofloxacin (Cipro) 250 mg PO Q12 [facility]; Protocol Stop: 11/01/18 23:46 Last Admin: 10/26/18 11:20 Dose: 250 mg Ergocalciferol (Drisdol 50,000 Intl Units Cap) 1 cap PO Q7D [facility] Last Admin: 10/25/18 15:24 Dose: 1 cap Heparin Sodium (Porcine) (Heparin) 5,000 units SC Q8 [facility]; Protocol Last Admin: 10/26/18 14:20 Dose: 5,000 units Hydralazine HCl (Apresoline) 25 mg PO Q4 PRN PRN Reason: Other Hydrochlorothiazide (Microzide) 12.5 mg PO DAILY [facility] Last Admin: 10/23/18 09:59 Dose: 12.5 mg Insulin Human Regular (Humulin R Low) 0 units SC ACHS [facility]; Protocol Last Admin: 10/26/18 12:18 Dose: Not Given Labetalol HCl (Trandate) 200 mg PO BID [facility] Last Admin: 10/26/18 10:19 Dose: 200 mg Lisinopril (Zestril) 20 mg PO DAILY [facility] Last Admin: 10/23/18 09:59 Dose: 20 mg Multi-Ingredient Ointment (Hydrophor Oint) 0 gm TOP Q6H [facility] Last Admin: 10/26/18 14:26 Dose: 1 oin Mupirocin (Bactroban Ointment) 0 gm TOP BID [facility] Last Admin: 10/25/18 19:17 Dose: Not Given Nystatin (Nystop Topical Powder) 0 gm TOP DAILY [facility] Pantoprazole Sodium (Protonix Ec Tab) 40 mg PO 0600 [facility] Last Admin: 10/26/18 05:39 Dose: 40 mg Tamsulosin HCl (Flomax) 0.4 mg PO DAILY [facility] Last Admin: 10/26/18 10:15 Dose: 0.4 mg Tramadol HCl (Ultram) 50 mg PO TID PRN PRN Reason: Pain, severe (8-10) Last Admin: 10/24/18 09:50 Dose: 50 mg - Labs Labs: 10/26/18 06:45 10/26/18 06:45 PT 12.5 SECONDS (9.4-12.5) 10/21/18 11:20 INR 1.11 10/21/18 11:20 APTT 35.0 Seconds (26.9-38.3) 10/21/18 11:20 - Constitutional Appears: Well, Non-toxic - Head Exam Head Exam: ATRAUMATIC, NORMOCEPHALIC - Eye Exam Eye Exam: EOMI, PERRL - Respiratory Exam Respiratory Exam: Clear to Ausculation Bilateral, NORMAL BREATHING PATTERN - Cardiovascular Exam Cardiovascular Exam: regular rhyhtm, no tahcycardia. Absent: rubs, gallops - GI/Abdominal Exam GI & Abdominal Exam: Soft, Normal Bowel Sounds - Extremities Exam Additional comments: LLE and RLE dressing in place, non draining/bleeding. B/L upper and lower extremities are warm, non tender and dry - Neurological Exam Neurological Exam: Alert, Awake, Oriented x3 - Psychiatric Exam Psychiatric exam: Normal Affect, Normal Mood - Skin Skin Exam: Dry, Intact, Warm - Constitutional Appears: Well, Non-toxic, No Acute Distress Assessment and Plan - Assessment and Plan (Free Text) Assessment: 77M w/ a PMH of HTN, DM2 presented on 10/21 w/ c/o of BL LE pain/ cellulitis found to have elevated BP 237/134; admitted for bilateral cellulitis and h ypertensive urgency. Plan: BL Lower Extremity Cellulitis and Ulcer -likely 2/2 moderate PAD PRITI R:0.62, L:0.79 -Extremity ultrasound revealed b/l SFA disease. IR consulted for further vascular intervention. No intervention planned -previous wound culture grew pseudomonas. Repeat blood cultures negative -continue ASA, lipitor -Tylenol prn moderate pain -Tramadol 50 TID prn for severe pain -Podiatry following -continue PT, plan for [facility]OVA - Likely 2/2 obstructive uropathy -BUN/Cr improved today -continue flomax -discontinue hall, attempt voiding trial -resumed anti hypertensives -nephro on consult HTN Urgency - improving -likely 2/2 non compliance -BP's have been improving -continue amlodipine, labetalol, tamsulosin, hydralazine prn - ACEi, thiazide diuretic on hold d/t TOVA -Renal Ultrasound: Unremarkable renal sonogram. Renal duplex unremarkable DM2 -ISS Regular ACHS -A1C 5.3 Hypovitaminosis D -start vitamin D PPX -Protonix/Heparin Dispo: Pending [facility] transfer. PT changed rec to [facility] after TCU. Will require auth by social work Patient seen and case discussed with attending, Dr. Gregory Ac PGY1 <Garret Carrasquillo - Last Filed: 10/27/18 08:30> Objective - Vital Signs/Intake and Output Vital Signs (last 24 hours): Temp Pulse Resp BP Pulse Ox 98.7 F 69 18 126/73 96 10/27/18 06:00 10/27/18 06:00 10/27/18 06:00 10/27/18 06:00 10/27/18 06:00 Intake and Output: 10/27/18 10/27/18 06:59 18:59 Intake Total 240 Output Total 700 Balance -460 - Medications Medications: Current Medications Acetaminophen (Tylenol 325mg Tab) 650 mg PO Q6H PRN PRN Reason: Pain, Mild (1-3) Last Admin: 10/21/18 16:59 Dose: 650 mg Amlodipine Besylate (Norvasc) 10 mg PO DAILY [facility] Last Admin: 10/26/18 10:15 Dose: 10 mg Aspirin (Ecotrin) 81 mg PO DAILY [facility] Last Admin: 10/26/18 10:15 Dose: 81 mg Atorvastatin Calcium (Lipitor) 40 mg PO DIN [facility] Last Admin: 10/26/18 18:07 Dose: 40 mg Betamethasone/Clotrimazole (Lotrisone) 0 gm TOP BID [facility] Last Admin: 10/26/18 18:20 Dose: 1 applic Ciprofloxacin (Cipro) 250 mg PO Q12 [facility]; Protocol Stop: 11/01/18 23:46 Last Admin: 10/26/18 22:01 Dose: 250 mg Ergocalciferol (Drisdol 50,000 Intl Units Cap) 1 cap PO Q7D [facility] Last Admin: 10/25/18 15:24 Dose: 1 cap Heparin Sodium (Porcine) (Heparin) 5,000 units SC Q8 [facility]; Protocol Last Admin: 10/27/18 05:50 Dose: 5,000 units Hydralazine HCl (Apresoline) 25 mg PO Q4 PRN PRN Reason: Other Hydrochlorothiazide (Microzide) 12.5 mg PO DAILY [facility] Last Admin: 10/23/18 09:59 Dose: 12.5 mg Sodium Chloride (Sodium Chloride 0.9%) 1,000 mls @ 75 mls/hr IV .[id number] [facility] Insulin Human Regular (Humulin R Low) 0 units SC ACHS [facility]; Protocol Last Admin: 10/27/18 08:12 Dose: 1 unit Labetalol HCl (Trandate) 200 mg PO BID [facility] Last Admin: 10/26/18 18:07 Dose: 200 mg Lisinopril (Zestril) 20 mg PO DAILY [facility] Last Admin: 10/23/18 09:59 Dose: 20 mg Multi-Ingredient Ointment (Hydrophor Oint) 0 gm TOP Q6H [facility] Last Admin: 10/26/18 18:20 Dose: 1 oin Mupirocin (Bactroban Ointment) 0 gm TOP BID [facility] Last Admin: 10/26/18 20:17 Dose: Not Given Nystatin (Nystop Topical Powder) 0 gm TOP DAILY [facility] Pantoprazole Sodium (Protonix Ec Tab) 40 mg PO 0600 [facility] Last Admin: 10/27/18 05:49 Dose: 40 mg Tamsulosin HCl (Flomax) 0.4 mg PO DAILY [facility] Last Admin: 10/26/18 10:15 Dose: 0.4 mg Tramadol HCl (Ultram) 50 mg PO TID PRN PRN Reason: Pain, severe (8-10) Last Admin: 10/27/18 02:23 Dose: 50 mg - Labs Labs: 10/27/18 06:35 10/27/18 06:35 PT 12.5 SECONDS (9.4-12.5) 10/21/18 11:20 INR 1.11 10/21/18 11:20 APTT 35.0 Seconds (26.9-38.3) 10/21/18 11:20 Attending/Attestation - Attestation I have personally seen and examined this patient.: Yes I have fully participated in the care of the patient.: Yes I have reviewed all pertinent clinical information, including history, physical exam and plan: Yes
--- NOTE | 2018-10-26 21:17 | PN ---
DATE: 10/26/2018 SUBJECTIVE: The patient is in bed, in no acute distress. PHYSICAL EXAMINATION: VITAL SIGNS: Temperature is 98, blood pressure is 101/60, respiratory rate of 16. HEENT: Unremarkable. NECK: Supple. LUNGS: Have decreased breath sounds. HEART: Normal S1 and S2. ABDOMEN: Soft. LABORATORY EXAMINATION: Reveals a white count of 7.5, hemoglobin of 12, BUN of 38, creatinine of 1.9. Urinalysis is noted. Serology is noted. REVIEW OF ORDERS: Reveals the patient to be on p.o. Cipro. ASSESSMENT AND PLAN: This is a 77-year-old male with Pseudomonas left leg skin infection and hypertension. Would complete a short course of Cipro, 3 to 5 days of antibiotics. Fantasma Lynne MD
[2018-10-27] MEDS: Pantoprazole 40 mg EC Tab PO SCH (05:49)
[2018-10-27 07:02] LABS: BASO # 0.02 K/mm3 (0.0-2.0); BASO % 0.2 % (0.0-3.0); EOS # 0.2 (0.0-0.7); EOS % 2.8 % (1.5-5.0); HEMOGLOBIN 12.5 g/dL (14.0-18.0); LYMPH # 1.1 (1.2-3.4); LYMPH % 12.6 % (22.0-35.0); MEAN CELL VOLUME 86.5 fl (80.0-105.0); MEAN CORPUSCULAR HEMOGLOBIN 27.3 pg (25.0-35.0); MEAN CORPUSCULAR HGB CONC 31.6 g/dl (31.0-37.0); MEAN PLATELET VOLUME 10.1 fl (7.0-11.0); MONO # 0.5 (0.1-0.6); MONO % 5.9 % (1.0-6.0); RBC 4.58 10^6/uL (3.5-6.1); RED CELL DISTRIBUTION WIDTH 13.2 % (11.5-14.5); WHITE BLOOD COUNT 8.5 10^3/uL (4.5-11.0)
[2018-10-27 07:28] LABS: ALB/GLOB RATIO 1.1 (1.1-1.8); ALBUMIN 3.3 g/dL (3.0-4.8); CALCIUM 8.7 mg/dL (8.4-10.5)
[2018-10-27] MEDS ORDERED: Sodium Chloride 0.9% 1,000 ML IV SCH (07:45)
[2018-10-27] MEDS: Insulin Reg-LOW-Coverage SC SCH ×6 (08:12→22:07)
[2018-10-27] MEDS: Petrolatum-Mineral Oil Oint (100gm) TOP SCH ×4 (09:13→23:45)
[2018-10-27] MEDS ORDERED: Nystatin 100,000 Units/gm Topical Pow(15 gm) TOP SCH (10:00)
[2018-10-27] MEDS: Nystatin 100,000 Units/gm Topical Pow(15 gm) TOP SCH (10:26)
--- NOTE | 2018-10-27 11:48 | CP.PCM.PN ---
<Ayden Hyatt - Last Filed: 10/27/18 11:44> Subjective - Date & Time of Evaluation Date of Evaluation: 10/27/18 Time of Evaluation: 11:45 - Subjective Subjective: Podiatry progress note for Dr. Frazier 77 year old male patient, seen and examined at bedside this morning for bilateral lower extremity edema, superficial ulcerations, and erythema. Patient resting comfortably and in NAD. Patient states that he didn't have pain to his b/l lower extremities since yesterday. Denies nausea/vomiting/fever/shortness of breath/chest pain. Objective - Vital Signs/Intake and Output Vital Signs (last 24 hours): Temp Pulse Resp BP Pulse Ox 98.7 F 66 18 120/70 96 10/27/18 06:00 10/27/18 10:13 10/27/18 06:00 10/27/18 10:13 10/27/18 06:00 Intake and Output: 10/27/18 10/27/18 06:59 18:59 Intake Total 240 Output Total 700 Balance -460 - Medications Medications: Current Medications Acetaminophen (Tylenol 325mg Tab) 650 mg PO Q6H PRN PRN Reason: Pain, Mild (1-3) Last Admin: 10/21/18 16:59 Dose: 650 mg Amlodipine Besylate (Norvasc) 10 mg PO DAILY [facility] Last Admin: 10/27/18 10:13 Dose: 10 mg Aspirin (Ecotrin) 81 mg PO DAILY [facility] Last Admin: 10/27/18 10:13 Dose: 81 mg Atorvastatin Calcium (Lipitor) 40 mg PO DIN [facility] Last Admin: 10/26/18 18:07 Dose: 40 mg Betamethasone/Clotrimazole (Lotrisone) 0 gm TOP BID [facility] Last Admin: 10/26/18 18:20 Dose: 1 applic Ciprofloxacin (Cipro) 250 mg PO Q12 [facility]; Protocol Stop: 11/01/18 23:46 Last Admin: 10/27/18 11:07 Dose: 250 mg Ergocalciferol (Drisdol 50,000 Intl Units Cap) 1 cap PO Q7D [facility] Last Admin: 10/25/18 15:24 Dose: 1 cap Heparin Sodium (Porcine) (Heparin) 5,000 units SC Q8 [facility]; Protocol Last Admin: 10/27/18 05:50 Dose: 5,000 units Hydralazine HCl (Apresoline) 25 mg PO Q4 PRN PRN Reason: Other Hydrochlorothiazide (Microzide) 12.5 mg PO DAILY [facility] Last Admin: 10/23/18 09:59 Dose: 12.5 mg Insulin Human Regular (Humulin R Low) 0 units SC ACHS [facility]; Protocol Last Admin: 10/27/18 11:26 Dose: Not Given Labetalol HCl (Trandate) 200 mg PO BID [facility] Last Admin: 10/27/18 10:13 Dose: 200 mg Lisinopril (Zestril) 20 mg PO DAILY [facility] Last Admin: 10/23/18 09:59 Dose: 20 mg Multi-Ingredient Ointment (Hydrophor Oint) 0 gm TOP Q6H [facility] Last Admin: 10/27/18 09:13 Dose: Not Given Mupirocin (Bactroban Ointment) 0 gm TOP BID [facility] Last Admin: 10/26/18 20:17 Dose: Not Given Nystatin (Nystop Topical Powder) 0 gm TOP DAILY [facility] Last Admin: 10/27/18 10:26 Dose: 1 applic Pantoprazole Sodium (Protonix Ec Tab) 40 mg PO 0600 [facility] Last Admin: 10/27/18 05:49 Dose: 40 mg Tamsulosin HCl (Flomax) 0.4 mg PO DAILY [facility] Last Admin: 10/27/18 10:13 Dose: 0.4 mg Tramadol HCl (Ultram) 50 mg PO TID PRN PRN Reason: Pain, severe (8-10) Last Admin: 10/27/18 02:23 Dose: 50 mg - Labs Labs: 10/27/18 06:35 10/27/18 06:35 PT 12.5 SECONDS (9.4-12.5) 10/21/18 11:20 INR 1.11 10/21/18 11:20 APTT 35.0 Seconds (26.9-38.3) 10/21/18 11:20 - Constitutional Appears: Well, Non-toxic, No Acute Distress - Head Exam Head Exam: ATRAUMATIC, NORMOCEPHALIC - Extremities Exam Additional comments: Bilateral Lower Extremity Exam VASC: DP and PT 1/4 bilaterally, Cap refill delayed > 4 sec, Mild pitting edema noted to the legs, and feet, Temp gradient warm to warm b/l. NEURO: Diminished protective sensation noted bilaterally. DERM: Multiple superficial ulcerations covered with dry scab noted to bilateral lower extremity L > R, with dry excoriated lesions as well, no purulence noted, Mild erythema noted L> R from the tibial tuberosity extending distally to the feet. Toe nails dystrophic and thickened to all digits. MSK: Mild pain on palpation to b/l lower extremity. - Neurological Exam Neurological Exam: Alert, Awake Assessment and Plan - Assessment and Plan (Free Text) Assessment: 77 year old male patient seen and evaluated for bilateral lower extremity stasis ulcerations. Plan: Patient seen and evaluated Plan discussed with attending Dr. Frazier. Charts, labs and vitals reviewed: Afebrile, No leukocytosis. Ordered Bilateral Tib-Fib, Ankle and Foot X-rays; degenerative changes at the midfoot metatarsals 2-4. Wound culture of the L foot; Pseudomonas aeruginosa Ordered PRITI/PVR Bilateral Lower Extremity; moderately abnormal PRITI at rest, Bilateral SFA disease, Bilateral popliteal, trifurcation, and/or tibial disease Venous Duplex- Negative for DVT bilaterally. Patient left leg dressed with xeroform and DSD. Right leg left open to air with no dressing. Continue IV Abx per ID recs. Ordered Aquaphor to be applied to b/l LE. and Nystatin powder to be applied in between the toes. No surgical intervention at this time. Podiatry will continue to follow up the patient while in house. <Pipo Frazier - Last Filed: 10/28/18 15:21> Objective - Vital Signs/Intake and Output Vital Signs (last 24 hours): Temp Pulse Resp BP Pulse Ox 98 F 60 20 94/59 L 98 10/28/18 14:00 10/28/18 14:00 10/28/18 14:00 10/28/18 14:00 10/28/18 14:00 Intake and Output: 10/28/18 10/28/18 06:59 18:59 Intake Total 360 600 Output Total 1200 500 Balance -840 100 - Medications Medications: Current Medications Acetaminophen (Tylenol 325mg Tab) 650 mg PO Q6H PRN PRN Reason: Pain, Mild (1-3) Last Admin: 10/21/18 16:59 Dose: 650 mg Amlodipine Besylate (Norvasc) 5 mg PO DAILY [facility] Aspirin (Ecotrin) 81 mg PO DAILY [facility] Last Admin: 10/28/18 10:52 Dose: 81 mg Atorvastatin Calcium (Lipitor) 40 mg PO DIN [facility] Last Admin: 10/27/18 17:43 Dose: 40 mg Betamethasone/Clotrimazole (Lotrisone) 0 gm TOP BID [facility] Last Admin: 10/28/18 10:59 Dose: 1 applic Ergocalciferol (Drisdol 50,000 Intl Units Cap) 1 cap PO Q7D [facility] Last Admin: 10/25/18 15:24 Dose: 1 cap Heparin Sodium (Porcine) (Heparin) 5,000 units SC Q8 [facility]; Protocol Last Admin: 10/28/18 14:58 Dose: 5,000 units Hydralazine HCl (Apresoline) 25 mg PO Q4 PRN PRN Reason: Other Sodium Chloride (Sodium Chloride 0.9%) 1,000 mls @ 75 mls/hr IV .[id number] [facility] Stop: 10/29/18 10:16 Last Admin: 10/28/18 10:55 Dose: 75 mls/hr Labetalol HCl (Trandate) 200 mg PO BID [facility] Last Admin: 10/28/18 10:53 Dose: 200 mg Lisinopril (Zestril) 20 mg PO DAILY [facility] Last Admin: 10/23/18 09:59 Dose: 20 mg Multi-Ingredient Ointment (Hydrophor Oint) 0 gm TOP Q6H [facility] Last Admin: 10/28/18 10:57 Dose: 1 applic Mupirocin (Bactroban Ointment) 0 gm TOP BID [facility] Last Admin: 10/28/18 10:58 Dose: 1 applic Nystatin (Nystop Topical Powder) 0 gm TOP DAILY [facility] Last Admin: 10/28/18 10:59 Dose: 1 applic Pantoprazole Sodium (Protonix Ec Tab) 40 mg PO 0600 [facility] Last Admin: 10/28/18 05:49 Dose: 40 mg Tamsulosin HCl (Flomax) 0.4 mg PO DAILY [facility] Last Admin: 10/28/18 10:52 Dose: 0.4 mg Tramadol HCl (Ultram) 50 mg PO TID PRN PRN Reason: Pain, severe (8-10) Last Admin: 10/27/18 02:23 Dose: 50 mg - Labs Labs: 10/28/18 06:20 10/28/18 06:20 PT 12.5 SECONDS (9.4-12.5) 10/21/18 11:20 INR 1.11 10/21/18 11:20 APTT 35.0 Seconds (26.9-38.3) 10/21/18 11:20 Attending/Attestation - Attestation I have personally seen and examined this patient.: Yes I have fully participated in the care of the patient.: Yes I have reviewed all pertinent clinical information, including history, physical exam and plan: Yes
--- NOTE | 2018-10-27 13:26 | CP.PCM.PCO ---
Additional Comments - Additional Comments Additional Comments: voiding trial fail, Dr. Ray consulted, as per Dr. Carrera no intervention indicated at this time for arterial disease.
--- NOTE | 2018-10-27 13:27 | CP.PCM.PCO ---
Physician Communication Note - Physician Communication Note Physician Communication Note: PT recommending ABBI
--- NOTE | 2018-10-27 16:20 | PN ---
DATE: 10/27/2018 SUBJECTIVE: The patient is in bed, in no acute distress, nontoxic. No fevers, no chills. PHYSICAL EXAMINATION: GENERAL: Temperature is 98, blood pressure is 120/70, and respiratory rate of 18. HEENT: Unremarkable. NECK: Supple. LUNGS: Have decreased breath sounds. HEART: Normal S1 and S2. ABDOMEN: Soft. LABORATORY DATA: Reveals a white count of 8.5, hemoglobin is noted. BUN of 41, creatinine of 1.9 and microbiology is noted and review of orders reveals the patient is on p.o. Cipro. ASSESSMENT AND PLAN: This is a 77-year-old male with Pseudomonas left leg cellulitis and hypertension. The patient is on Cipro and will complete 3-5 days of p.o. Cipro and short course of antibiotics. The leg is much improved. Fantasma Lynne MD
--- NOTE | 2018-10-27 16:43 | CP.PCM.PN ---
<Ailyn Ac - Last Filed: 10/27/18 16:40> Subjective - Date & Time of Evaluation Date of Evaluation: 10/27/18 Time of Evaluation: 11:00 - Subjective Subjective: INTERNAL MEDICINE PROGRESS NOTE FOR DR. GREGORY Ac PGY1 Pt seen and examined at bedside this am. Nursing staff removed hall yesterday evening, pt subsequently experience abdominal pressure/pain and was unable to urinate. Bladder scan revealed ~500cc urine. Hall catheter placed with ~800 drainage. Hall left in place overnight. This am, pt reports no complaints. He denies 12 point ROS Objective - Vital Signs/Intake and Output Vital Signs (last 24 hours): Temp Pulse Resp BP Pulse Ox 98 F 59 L 18 89/55 L 95 10/27/18 14:00 10/27/18 14:00 10/27/18 14:00 10/27/18 14:00 10/27/18 14:00 Intake and Output: 10/27/18 10/27/18 06:59 18:59 Intake Total 240 Output Total 700 Balance -460 - Medications Medications: Current Medications Acetaminophen (Tylenol 325mg Tab) 650 mg PO Q6H PRN PRN Reason: Pain, Mild (1-3) Last Admin: 10/21/18 16:59 Dose: 650 mg Amlodipine Besylate (Norvasc) 10 mg PO DAILY [facility] Last Admin: 10/27/18 10:13 Dose: 10 mg Aspirin (Ecotrin) 81 mg PO DAILY [facility] Last Admin: 10/27/18 10:13 Dose: 81 mg Atorvastatin Calcium (Lipitor) 40 mg PO DIN [facility] Last Admin: 10/26/18 18:07 Dose: 40 mg Betamethasone/Clotrimazole (Lotrisone) 0 gm TOP BID [facility] Last Admin: 10/26/18 18:20 Dose: 1 applic Ciprofloxacin (Cipro) 250 mg PO Q12 [facility]; Protocol Stop: 11/01/18 23:46 Last Admin: 10/27/18 11:07 Dose: 250 mg Ergocalciferol (Drisdol 50,000 Intl Units Cap) 1 cap PO Q7D [facility] Last Admin: 10/25/18 15:24 Dose: 1 cap Heparin Sodium (Porcine) (Heparin) 5,000 units SC Q8 [facility]; Protocol Last Admin: 10/27/18 14:31 Dose: 5,000 units Hydralazine HCl (Apresoline) 25 mg PO Q4 PRN PRN Reason: Other Hydrochlorothiazide (Microzide) 12.5 mg PO DAILY [facility] Last Admin: 10/23/18 09:59 Dose: 12.5 mg Insulin Human Regular (Humulin R Low) 0 units SC ACHS [facility]; Protocol Last Admin: 10/27/18 11:26 Dose: Not Given Labetalol HCl (Trandate) 200 mg PO BID [facility] Last Admin: 10/27/18 10:13 Dose: 200 mg Lisinopril (Zestril) 20 mg PO DAILY [facility] Last Admin: 10/23/18 09:59 Dose: 20 mg Multi-Ingredient Ointment (Hydrophor Oint) 0 gm TOP Q6H [facility] Last Admin: 10/27/18 09:13 Dose: Not Given Mupirocin (Bactroban Ointment) 0 gm TOP BID [facility] Last Admin: 10/26/18 20:17 Dose: Not Given Nystatin (Nystop Topical Powder) 0 gm TOP DAILY [facility] Last Admin: 10/27/18 10:26 Dose: 1 applic Pantoprazole Sodium (Protonix Ec Tab) 40 mg PO 0600 [facility] Last Admin: 10/27/18 05:49 Dose: 40 mg Tamsulosin HCl (Flomax) 0.4 mg PO DAILY [facility] Last Admin: 10/27/18 10:13 Dose: 0.4 mg Tramadol HCl (Ultram) 50 mg PO TID PRN PRN Reason: Pain, severe (8-10) Last Admin: 10/27/18 02:23 Dose: 50 mg - Labs Labs: 10/27/18 06:35 10/27/18 06:35 PT 12.5 SECONDS (9.4-12.5) 10/21/18 11:20 INR 1.11 10/21/18 11:20 APTT 35.0 Seconds (26.9-38.3) 10/21/18 11:20 - Constitutional Appears: Non-toxic, No Acute Distress - Head Exam Head Exam: NORMAL INSPECTION, NORMOCEPHALIC - Eye Exam Eye Exam: EOMI, Normal appearance - ENT Exam ENT Exam: Mucous Membranes Moist, Normal Exam - Neck Exam Neck Exam: Normal Inspection - Respiratory Exam Respiratory Exam: Clear to Ausculation Bilateral, NORMAL BREATHING PATTERN - Cardiovascular Exam Cardiovascular Exam: REGULAR RHYTHM, +S1, +S2 - GI/Abdominal Exam GI & Abdominal Exam: Soft. absent: Tenderness - Exam Additional comments: hall in place draining clear, yellow fluid - Extremities Exam Extremities Exam: absent: Calf Tenderness - Back Exam Back Exam: absent: CVA tenderness (L), CVA tenderness (R) - Neurological Exam Neurological Exam: Alert, Awake, Oriented x3 - Psychiatric Exam Psychiatric exam: Normal Affect, Normal Mood - Skin Skin Exam: Dry, Intact, Warm Additional comments: LLE and RLE dressing in place, non draining/bleeding. B/L upper and lower extremities are warm, non tender and dry Assessment and Plan - Assessment and Plan (Free Text) Assessment: 77M w/ a PMH of HTN, DM2 presented on 10/21 w/ c/o of BL LE pain/ cellulitis found to have elevated BP 237/134; admitted for bilateral cellulitis and hypertensive urgency. Plan: BL Lower Extremity Cellulitis and Ulcer -likely 2/2 moderate PAD PRITI R:0.62, L:0.79 -Extremity ultrasound revealed b/l SFA disease. IR consulted for further vascular intervention. No intervention planned -previous wound culture grew pseudomonas. Repeat blood cultures negative -continue ASA, lipitor -Tylenol prn moderate pain -Tramadol 50 TID prn for severe pain -Podiatry following -continue PT, plan for [facility] TOVA - Likely 2/2 obstructive uropathy -BUN/Cr improved today -continue flomax -continue hall as pt failed voiding trial -resume anti hypertensives -nephro on consult -Will consult urology d/t urinary retention HTN Urgency - improving -likely 2/2 non compliance -BP's have been improving -continue amlodipine, labetalol, tamsulosin, hydralazine prn -ACEi, thiazide diuretic on hold d/t TOVA -Renal Ultrasound: Unremarkable renal sonogram. Renal duplex unremarkable DM2 -ISS Regular ACHS -A1C 5.3 Hypovitaminosis D -continue vitamin D PPX -Protonix/Heparin Dispo: Pending [facility] transfer and urology evaluation Patient seen and case discussed with attending, Dr. Gregory Ac PGY1 <Garret Carrasquillo - Last Filed: 10/27/18 18:39> Objective - Vital Signs/Intake and Output Vital Signs (last 24 hours): Temp Pulse Resp BP Pulse Ox 98 F 60 18 90/59 L 95 10/27/18 14:00 10/27/18 17:45 10/27/18 14:00 10/27/18 17:45 10/27/18 14:00 Intake and Output: 10/27/18 10/27/18 06:59 18:59 Intake Total 240 Output Total 700 Balance -460 - Medications Medications: Current Medications Acetaminophen (Tylenol 325mg Tab) 650 mg PO Q6H PRN PRN Reason: Pain, Mild (1-3) Last Admin: 10/21/18 16:59 Dose: 650 mg Amlodipine Besylate (Norvasc) 10 mg PO DAILY [facility] Last Admin: 10/27/18 10:13 Dose: 10 mg Aspirin (Ecotrin) 81 mg PO DAILY [facility] Last Admin: 10/27/18 10:13 Dose: 81 mg Atorvastatin Calcium (Lipitor) 40 mg PO DIN [facility] Last Admin: 10/27/18 17:43 Dose: 40 mg Betamethasone/Clotrimazole (Lotrisone) 0 gm TOP BID [facility] Last Admin: 10/27/18 18:08 Dose: 1 applic Ciprofloxacin (Cipro) 250 mg PO Q12 [facility]; Protocol Stop: 11/01/18 23:46 Last Admin: 10/27/18 11:07 Dose: 250 mg Ergocalciferol (Drisdol 50,000 Intl Units Cap) 1 cap PO Q7D [facility] Last Admin: 10/25/18 15:24 Dose: 1 cap Heparin Sodium (Porcine) (Heparin) 5,000 units SC Q8 [facility]; Protocol Last Admin: 10/27/18 14:31 Dose: 5,000 units Hydralazine HCl (Apresoline) 25 mg PO Q4 PRN PRN Reason: Other Hydrochlorothiazide (Microzide) 12.5 mg PO DAILY [facility] Last Admin: 10/23/18 09:59 Dose: 12.5 mg Insulin Human Regular (Humulin R Low) 0 units SC ACHS [facility]; Protocol Last Admin: 10/27/18 17:29 Dose: Not Given Labetalol HCl (Trandate) 200 mg PO BID [facility] Last Admin: 10/27/18 17:45 Dose: Not Given Lisinopril (Zestril) 20 mg PO DAILY [facility] Last Admin: 10/23/18 09:59 Dose: 20 mg Multi-Ingredient Ointment (Hydrophor Oint) 0 gm TOP Q6H [facility] Last Admin: 10/27/18 18:07 Dose: 1 applic Mupirocin (Bactroban Ointment) 0 gm TOP BID [facility] Last Admin: 10/27/18 18:07 Dose: 1 applic Nystatin (Nystop Topical Powder) 0 gm TOP DAILY [facility] Last Admin: 10/27/18 10:26 Dose: 1 applic Pantoprazole Sodium (Protonix Ec Tab) 40 mg PO 0600 [facility] Last Admin: 10/27/18 05:49 Dose: 40 mg Tamsulosin HCl (Flomax) 0.4 mg PO DAILY [facility] Last Admin: 10/27/18 10:13 Dose: 0.4 mg Tramadol HCl (Ultram) 50 mg PO TID PRN PRN Reason: Pain, severe (8-10) Last Admin: 10/27/18 02:23 Dose: 50 mg - Labs Labs: 10/27/18 06:35 10/27/18 06:35 PT 12.5 SECONDS (9.4-12.5) 10/21/18 11:20 INR 1.11 10/21/18 11:20 APTT 35.0 Seconds (26.9-38.3) 10/21/18 11:20 Attending/Attestation - Attestation I have personally seen and examined this patient.: Yes I have fully participated in the care of the patient.: Yes I have reviewed all pertinent clinical information, including history, physical exam and plan: Yes
--- NOTE | 2018-10-27 17:15 | CP.PCM.PN ---
Subjective - Date & Time of Evaluation Date of Evaluation: 10/27/18 Time of Evaluation: 17:14 - Subjective Subjective: Nephrology Consultation Note: Assessment: stable Acute Kidney Injury (N17.9) likely due to urine retention. also hemodynamic inju ry due to BP fluctuations contributed: improving Diabetic chronic Kidney Disease (E11.22) Hypertensive Chronic Kidney Disease (I12.9) Chronic Kidney Disease (N18.3) Stage 3 with ? mg proteinuria (R80.9) likely due to DM/HTN HTN urgency, PVD, cellulitis mild aspen LVH vit D def Plan No acute need for renal replacement therapy at this time. Hypertension control with meds as ordered. Maintain hemodynamics stable. Avoid hypotension. Patient not on ACEI/ARB due to recent TOVA (Can resume now). added labetalol. can give prn hydralazine Monitor Input/Output, daily weights and renal function with basic metabolic panel started flomax. continue with hall. consider urology eval weekly Vit D added Check urine analysis, spot protein/creatinine, albumin/creatinine ratio, urine for eosinophils. bladder sonogram Secondary HTN work up with plasma renin/aldosterone, and renal artery Doppler to r/o renal artery stenosis so far neg. plasma metanephrine pending results Dose meds/antibiotics for reduced GFR. Avoid fleets enema/magnesium based laxatives. Avoid nephrotoxins/NSAIDs/ iodinated contrast (unless needed emergently) Glycemic control Further work up/management as per primary team Thanks for allowing me to participate in care of your patient. Will follow patient with you. Please call if any Qs. had d/w team Dr Jacky Johnson Office: [phone] Chief Complaint; legs Reason for consult: Acute Kidney Injury HPI: Pt is a 77 M with hx of diabetes Mellitus (7 years), hypertension (7 years) presented with complaints of leg pain and found to have PVD, cellulitis, also with HTN urgency. developed TOVA hence renal consulted Denies OTC/herbal meds or NSAIDs No recent iodinated contrast exposure. No obvious episodes of low BP. BP was 230s range when came pt reported difficulty in urination. hall catheter placed and apprx 1L urine output soon c/o nocturia prior to this ROS: Cardiovascular: No chest pain. Pulmonary: No shortness of breath Gastrointestinal: denies abdominal pain No nausea. No vomiting. Genitourinary: No pain while urinating. Denies blood in urine. has hall. failed voiding trial All other negative except as mentioned in HPI Physical Examination: General Appearance: Comfortable, in no acute respiratory distress, co-operative . Vitals reviewed and noted as below Head; Atraumatic, normocephalic ENT: no ulcers no thrush. Tongue is midline. Oropharynx: no rash or ulcers. EYES: Pupils are equal, round and reactive to light accommodation. Eye muscles and extraocular movement intact. Sclera is anicteric. Neck; supple no lymphadenopathy, no thyromegaly or bruit Lungs: Normal respiratory rate/effort. Breath sounds bilateral equal and clear Heart: Normal rate. s1s2 normal. No rub or gallop. Extremities: no edema. No varicose veins. chronic leg changes. has overlying dressing Neurological: Patient is alert, awake and oriented to person, place and time. No focal deficit. Strength bilateral appropriate and equal Skin: Warm and dry. Normal turgor. No rash. Palpitation: Normal elasticity for age Abdomen: Abdomen is soft. Bowel sounds +. There is no abdominal tenderness, no guarding/rigidity no organomegaly Psych: limited insight and pleasant now MSK: no joint tenderness or swelling. Digits and nails normal, no deformity : kidney or bladder not palpable. has hall Labs/imaging reviewed. Past medical history, past surgical history, family history, social history, allergy reviewed and noted as below Family hx: no hx of CKD. Rest non-contributory renal sono unremarkable CXR no effusions urine tox neg TSH 1.6 UA SG 1.020 30 prot no blood echo; mild conc LVH Objective - Vital Signs/Intake and Output Vital Signs (last 24 hours): Temp Pulse Resp BP Pulse Ox 98 F 59 L 18 89/55 L 95 10/27/18 14:00 10/27/18 14:00 10/27/18 14:00 10/27/18 14:00 10/27/18 14:00 Intake and Output: 10/27/18 10/27/18 06:59 18:59 Intake Total 240 Output Total 700 Balance -460 - Medications Medications: Current Medications Acetaminophen (Tylenol 325mg Tab) 650 mg PO Q6H PRN PRN Reason: Pain, Mild (1-3) Last Admin: 10/21/18 16:59 Dose: 650 mg Amlodipine Besylate (Norvasc) 10 mg PO DAILY [facility] Last Admin: 10/27/18 10:13 Dose: 10 mg Aspirin (Ecotrin) 81 mg PO DAILY [facility] Last Admin: 10/27/18 10:13 Dose: 81 mg Atorvastatin Calcium (Lipitor) 40 mg PO DIN [facility] Last Admin: 10/26/18 18:07 Dose: 40 mg Betamethasone/Clotrimazole (Lotrisone) 0 gm TOP BID [facility] Last Admin: 10/26/18 18:20 Dose: 1 applic Ciprofloxacin (Cipro) 250 mg PO Q12 [facility]; Protocol Stop: 11/01/18 23:46 Last Admin: 10/27/18 11:07 Dose: 250 mg Ergocalciferol (Drisdol 50,000 Intl Units Cap) 1 cap PO Q7D [facility] Last Admin: 10/25/18 15:24 Dose: 1 cap Heparin Sodium (Porcine) (Heparin) 5,000 units SC Q8 [facility]; Protocol Last Admin: 10/27/18 14:31 Dose: 5,000 units Hydralazine HCl (Apresoline) 25 mg PO Q4 PRN PRN Reason: Other Hydrochlorothiazide (Microzide) 12.5 mg PO DAILY [facility] Last Admin: 10/23/18 09:59 Dose: 12.5 mg Insulin Human Regular (Humulin R Low) 0 units SC ACHS [facility]; Protocol Last Admin: 10/27/18 11:26 Dose: Not Given Labetalol HCl (Trandate) 200 mg PO BID [facility] Last Admin: 10/27/18 10:13 Dose: 200 mg Lisinopril (Zestril) 20 mg PO DAILY [facility] Last Admin: 10/23/18 09:59 Dose: 20 mg Multi-Ingredient Ointment (Hydrophor Oint) 0 gm TOP Q6H [facility] Last Admin: 10/27/18 09:13 Dose: Not Given Mupirocin (Bactroban Ointment) 0 gm TOP BID [facility] Last Admin: 10/26/18 20:17 Dose: Not Given Nystatin (Nystop Topical Powder) 0 gm TOP DAILY [facility] Last Admin: 10/27/18 10:26 Dose: 1 applic Pantoprazole Sodium (Protonix Ec Tab) 40 mg PO 0600 [facility] Last Admin: 10/27/18 05:49 Dose: 40 mg Tamsulosin HCl (Flomax) 0.4 mg PO DAILY [facility] Last Admin: 10/27/18 10:13 Dose: 0.4 mg Tramadol HCl (Ultram) 50 mg PO TID PRN PRN Reason: Pain, severe (8-10) Last Admin: 10/27/18 02:23 Dose: 50 mg - Labs Labs: 10/27/18 06:35 10/27/18 06:35 PT 12.5 SECONDS (9.4-12.5) 10/21/18 11:20 INR 1.11 10/21/18 11:20 APTT 35.0 Seconds (26.9-38.3) 10/21/18 11:20
[2018-10-27] MEDS: Mupirocin 2% Ointment 15 GM TUBE TOP SCH ×2 (18:07→18:09)
[2018-10-27] MEDS: Clotrimazole/Betamethasone Cream(15 gm) TOP SCH ×2 (18:08→18:09)
[2018-10-28] MEDS: Pantoprazole 40 mg EC Tab PO SCH (05:49)
[2018-10-28] MEDS: Petrolatum-Mineral Oil Oint (100gm) TOP SCH ×2 (05:49→10:57)
--- NOTE | 2018-10-28 05:53 | PCM.URO ---
Urology Progress Note - Objective Lab Studies: Reviewed (maintain hall full note to be dictated plans to be discussed) Lab Results Last 24 Hours: Laboratory Results - last 24 hr 10/27/18 10/27/18 10/27/18 06:19 06:35 06:35 WBC 8.5 RBC 4.58 Hgb 12.5 L Hct 39.6 L MCV 86.5 MCH 27.3 MCHC 31.6 RDW 13.2 Plt Count 204 MPV 10.1 Neut % (Auto) 78.5 H Lymph % (Auto) 12.6 L [place] % (Auto) 5.9 Eos % (Auto) 2.8 Baso % (Auto) 0.2 Lymph # (Auto) 1.1 L [place] # (Auto) 0.5 Eos # (Auto) 0.2 Baso # (Auto) 0.02 Absolute Neuts (auto) 6.66 H Sodium 142 Potassium 4.3 Chloride 110 H Carbon Dioxide 26 Anion Gap 11 BUN 41 H Creatinine 1.9 H Est GFR ( Amer) 42 Est GFR (Non-Af Amer) 35 POC Glucose (mg/dL) 185 H Random Glucose 98 Calcium 8.7 Total Bilirubin 0.3 AST 29 ALT 18 Alkaline Phosphatase 62 Total Protein 6.2 Albumin 3.3 Globulin 2.9 Albumin/Globulin Ratio 1.1 10/27/18 10/27/18 10/27/18 11:25 16:19 20:54 WBC RBC Hgb Hct MCV MCH MCHC RDW Plt Count MPV Neut % (Auto) Lymph % (Auto) [place] % (Auto) Eos % (Auto) Baso % (Auto) Lymph # (Auto) [place] # (Auto) Eos # (Auto) Baso # (Auto) Absolute Neuts (auto) Sodium Potassium Chloride Carbon Dioxide Anion Gap BUN Creatinine Est GFR ( Amer) Est GFR (Non-Af Amer) POC Glucose (mg/dL) 133 H 105 94 Random Glucose Calcium Total Bilirubin AST ALT Alkaline Phosphatase Total Protein Albumin Globulin Albumin/Globulin Ratio Intake & Output: Intake & Output 10/27/18 10/27/18 10/28/18 06:59 18:59 06:59 Intake Total 240 360 Output Total 700 1200 Balance -460 -840 Weight 130 lb Intake: Oral 240 360 Output: Urine 700 1200 Urethral (Hall) 1200 Urine, Voided 700 Other: # Bowel Movements 2 Vital Signs: Vital Signs - 24 hr 10/27/18 10/27/18 10/27/18 06:00 10:13 14:00 Temperature 98.7 F 98 F Pulse Rate 69 66 59 L Respiratory 18 18 Rate Blood Pressure 126/73 120/70 89/55 L O2 Sat by Pulse 96 95 Oximetry 10/27/18 10/27/18 17:45 22:00 Temperature 97.5 F L Pulse Rate 60 61 Respiratory 18 Rate Blood Pressure 90/59 L 120/72 O2 Sat by Pulse 97 Oximetry
[2018-10-28 06:51] LABS: BASO # 0.03 K/mm3 (0.0-2.0); BASO % 0.5 % (0.0-3.0); EOS # 0.4 (0.0-0.7); EOS % 6.2 % (1.5-5.0); HEMOGLOBIN 12.2 g/dL (14.0-18.0); LYMPH # 0.7 (1.2-3.4); MEAN CELL VOLUME 86.4 fl (80.0-105.0); MEAN CORPUSCULAR HEMOGLOBIN 27.3 pg (25.0-35.0); MEAN CORPUSCULAR HGB CONC 31.6 g/dl (31.0-37.0); MEAN PLATELET VOLUME 10.4 fl (7.0-11.0); MONO # 0.6 (0.1-0.6); RBC 4.47 10^6/uL (3.5-6.1); RED CELL DISTRIBUTION WIDTH 13.3 % (11.5-14.5)
[2018-10-28 07:15] VITALS: TEMP 98
[2018-10-28 07:46] LABS: ALB/GLOB RATIO 1.2 (1.1-1.8); ALBUMIN 3.4 g/dL (3.0-4.8); CALCIUM 8.6 mg/dL (8.4-10.5)
[2018-10-28] MEDS ORDERED: Sodium Chloride 0.9% 1,000 ML IV SCH (10:15)
--- NOTE | 2018-10-28 10:22 | CON ---
DATE: 10/27/2018 UROLOGY CONSULT REASON FOR THE CONSULTATION: Urinary retention. History is from the patient and from the chart. HISTORY OF PRESENT ILLNESS: A very pleasant gentleman. He is currently resting in his bed. care of the hospitalist. They tried voiding trial. He has had urinary retention, but he reports that he is having voiding dysfunction and voiding two to three times at night. At home, it is okay, but somewhat diminished force and stream. Here, he failed two voiding trials. See the plans below. He liked to know about taking off the catheter again. PAST MEDICAL AND SURGICAL HISTORY: As listed on the chart. REVIEW OF SYSTEMS: Listed above, noncontributory. MEDICATIONS: Seen on the chart. ALLERGIES: Seen on the chart. PHYSICAL EXAMINATION: The abdomen is overall soft. Remainder of physical examination is as listed on the chart. Vital signs are all noted. The abdomen is overall soft. The Whiteside catheter is in place. Lower extremities are noted. DIAGNOSIS: Recurrent bouts of urinary retention. RECOMMENDATIONS: From urology standpoint, we would recommend the following. Maintain Whiteside. The patient should be placed on Flomax. I placed the patient on the different options, one is to remove the catheter and getting another voiding trial. The other is to continue the Whiteside. This is my best recommendation. Maintain Whiteside catheter and place it to a leg bag, and then when he is more ambulatory as an outpatient, he would give a voiding trial. The patient then had other questions whether this to be done at the [facility], and I explained it can be. I provided him the card for my office. He can see me in the office, or he can also follow up with his physicians. He has a regular general medical doctor at the [facility]. Perhaps, this would also serve the patient well. So from a urology standpoint, maintain the Whiteside, start Flomax and then further plans to follow. Ras Ray MD
[2018-10-28] MEDS: Insulin Reg-LOW-Coverage SC SCH (10:52)
[2018-10-28] MEDS: Mupirocin 2% Ointment 15 GM TUBE TOP SCH (10:58)
[2018-10-28] MEDS: Nystatin 100,000 Units/gm Topical Pow(15 gm) TOP SCH (10:59)
[2018-10-28] MEDS: Clotrimazole/Betamethasone Cream(15 gm) TOP SCH (10:59)
--- NOTE | 2018-10-28 13:20 | CP.PCM.PCO ---
Physician Communication Note - Physician Communication Note Physician Communication Note: Valenciaro D/C as per Dr. Maged WARD
--- NOTE | 2018-10-28 14:27 | CP.PCM.DIS ---
Provider - Provider Date of Admission: 10/21/18 14:38 Attending physician: Romi Johnson DO Consults: 10/21/18 11:00 Consult [Physician Consult] Stat Comment: Consulting Provider: Aliya Matthews Consulting Physician: Aliya Matthews Reason for Consult: Lower extremity cellulitis 10/21/18 15:06 Consult [Physician Consult] Routine Comment: Consulting Provider: Kana Rogers Consulting Physician: Kana Rogers Reason for Consult: B/l lower ext cellulites / ulcer 10/21/18 15:09 Defensive Secondary Coach [Case Management Referral] Routine Comment: Physician Instructions: Reason For Exam: , [place] Reason for Referral: Defensive Secondary Coach Eval 10/21/18 19:00 Nursing Referral for Wound Care Routine Comment: Physician Instructions: Reason For Exam: bilateral lower leg wounds 10/22/18 00:33 Nursing Referral for Wound Care Routine Comment: MULTIPLE SCABBED WOUND TO RIGHT LEG. OPEN WD LLEG Physician Instructions: Reason For Exam: EVALUATION 10/22/18 00:38 Social Work Referral Routine Comment: ,LIVES ALONE NO SUPPORT. Physician Instructions: Reason For Exam: EVALUATION 10/23/18 10:54 Nephrology Consult Routine Comment: Consulting Provider: Jacky Johnson Consulting Physician: Jacky Johnson Reason for Consult: TOVA 10/24/18 08:47 TCU [Evaluation for TRCU] Routine Comment: Physician Instructions: Reason For Exam: gait instability 10/25/18 10:54 Physician Consult Routine Comment: Consulting Provider: Shadi Carrera Consulting Physician: Shadi Carrera Reason for Consult: PVD, abnormal chava- potential Ir intevention 10/27/18 09:04 Physician Consult Routine Comment: Consulting Provider: Francisco Ray Consulting Physician: Francisco Ray Reason for Consult: urinary retention, failed voiding trials x 2 Time Spent in preparation of Discharge (in minutes): 45 Diagnosis - Discharge Diagnosis (1) Hypertensive urgency Status: Resolved (2) Acute kidney injury Status: Resolved (3) Cellulitis Status: Resolved (4) HTN (hypertension) Status: Chronic (5) Peripheral arterial disease Status: Chronic (6) Urinary retention Status: Ruled-out Hospital Course - Lab Results Lab Results: Micro Results 10/21/18 11:50 Blood Blood Culture - Final NO GROWTH AFTER 5 DAYS 10/21/18 11:50 Blood Gram Stain - Final TEST NOT PERFORMED 10/21/18 11:20 Blood Blood Culture - Final NO GROWTH AFTER 5 DAYS 10/21/18 11:20 Blood Gram Stain - Final TEST NOT PERFORMED 10/22/18 08:30 Leg - Left Gram Stain - Final 10/22/18 08:30 Leg - Left Wound Culture - Final Pseudomonas Aeruginosa 10/21/18 17:00 Nose MRSA Culture (Admit) - Final MRSA NOT DETECTED Most Recent Lab Values WBC 6.0 10^3/uL (4.5-11.0) D 10/28/18 06:20 RBC 4.47 10^6/uL (3.5-6.1) 10/28/18 06:20 Hgb 12.2 g/dL (14.0-18.0) L 10/28/18 06:20 Hct 38.6 % (42.0-52.0) L 10/28/18 06:20 MCV 86.4 fl (80.0-105.0) 10/28/18 06:20 MCH 27.3 pg (25.0-35.0) 10/28/18 06:20 MCHC 31.6 g/dl (31.0-37.0) 10/28/18 06:20 RDW 13.3 % (11.5-14.5) 10/28/18 06:20 Plt Count 195 10^3/uL (120.0-450.0) 10/28/18 06:20 MPV 10.4 fl (7.0-11.0) 10/28/18 06:20 Neut % (Auto) 71.3 % (50.0-68.0) H 10/28/18 06:20 Lymph % (Auto) 12.0 % (22.0-35.0) L 10/28/18 06:20 [place] % (Auto) 10.0 % (1.0-6.0) H 10/28/18 06:20 Eos % (Auto) 6.2 % (1.5-5.0) H 10/28/18 06:20 Baso % (Auto) 0.5 % (0.0-3.0) 10/28/18 06:20 Lymph # (Auto) 0.7 (1.2-3.4) L 10/28/18 06:20 [place] # (Auto) 0.6 (0.1-0.6) 10/28/18 06:20 Eos # (Auto) 0.4 (0.0-0.7) 10/28/18 06:20 Baso # (Auto) 0.03 K/mm3 (0.0-2.0) 10/28/18 06:20 Absolute Neuts (auto) 4.29 (1.4-6.5) 10/28/18 06:20 Neutrophils % (Manual) 91 % (50.0-70.0) H 10/22/18 05:00 Lymphocytes % (Manual) 3 % (22.0-35.0) L 10/22/18 05:00 Monocytes % (Manual) 6 % (1.0-6.0) 10/22/18 05:00 ESR 34 mm/hr (0.00-15.0) H 10/23/18 06:00 PT 12.5 SECONDS (9.4-12.5) 10/21/18 11:20 INR 1.11 10/21/18 11:20 APTT 35.0 Seconds (26.9-38.3) 10/21/18 11:20 Sodium 140 mmol/L (132-148) 10/28/18 06:20 Potassium 4.3 mmol/L (3.6-5.0) 10/28/18 06:20 Chloride 108 mmol/L (98-107) H 10/28/18 06:20 Carbon Dioxide 25 mmol/L (21-33) 10/28/18 06:20 Anion Gap 12 (10-20) 10/28/18 06:20 BUN 41 mg/dL (7-21) H 10/28/18 06:20 Creatinine 1.9 mg/dl (0.8-1.5) H 10/28/18 06:20 Est GFR ( Amer) 42 10/28/18 06:20 Est GFR (Non-Af Amer) 35 10/28/18 06:20 POC Glucose (mg/dL) 105 mg/dL (65-110) 10/28/18 11:44 Random Glucose 84 mg/dL (70-110) 10/28/18 06:20 Hemoglobin A1c 5.3 % (4.2-6.5) 10/21/18 11:30 Calcium 8.6 mg/dL (8.4-10.5) 10/28/18 06:20 Phosphorus 4.1 mg/dL (2.5-4.5) 10/25/18 07:00 Magnesium 2.2 mg/dL (1.7-2.2) 10/21/18 11:20 Total Bilirubin 0.5 mg/dL (0.2-1.3) 10/28/18 06:20 AST 29 U/L (17-59) 10/28/18 06:20 ALT 31 U/L (7-56) 10/28/18 06:20 Alkaline Phosphatase 59 U/L (38-126) 10/28/18 06:20 Troponin I < 0.01 ng/mL 10/21/18 11:30 C-Reactive Protein 27.10 mg/L (0.0-9.9) H 10/21/18 11:30 NT-Pro-B Natriuret Pep 433 pg/mL (0-450) 10/21/18 11:20 Total Protein 6.4 g/dL (5.8-8.3) 10/28/18 06:20 Albumin 3.4 g/dL (3.0-4.8) 10/28/18 06:20 Globulin 3.0 gm/dL 10/28/18 06:20 Albumin/Globulin Ratio 1.2 (1.1-1.8) 10/28/18 06:20 Triglycerides 166 mg/dL (35-160) H 10/21/18 11:30 Cholesterol 191 mg/dL (130-200) 10/21/18 11:30 LDL Cholesterol Direct 110 mg/dL (0-129) 10/21/18 11:30 HDL Cholesterol 44 mg/dL (29-60) 10/21/18 11:30 Renin 0.34 ng/mL/h (0.25-5.82) 10/21/18 14:40 Aldosterone 2 ng/dL 10/21/18 14:40 Aldosterone/Renin Ratio 5.9 Ratio (0.9-28.9) 10/21/18 14:40 25-OH Vitamin D Total < 12.8 NG/ML (30.0-100.0) L 10/25/18 07:00 Procalcitonin < 0.05 NG/ML (0.19-0.49) L 10/21/18 11:00 TSH 3rd Generation 1.63 mIU/mL (0.46-4.68) 10/21/18 11:30 Urine Color Yellow (YELLOW) 10/24/18 12:25 Urine Appearance Clear (CLEAR) 10/24/18 12:25 Urine pH 5.0 (4.7-8.0) 10/24/18 12:25 Ur Specific Colony 1.015 (1.005-1.035) 10/24/18 12:25 Urine Protein Negative mg/dL (<30 mg/dL) 10/24/18 12:25 Urine Glucose (UA) Negative mg/dL (NEGATIVE) 10/24/18 12:25 Urine Ketones Negative mg/dL (NEGATIVE) 10/24/18 12:25 Urine Blood Small (NEGATIVE) H 10/24/18 12:25 Urine Nitrate Negative (NEGATIVE) 10/24/18 12:25 Urine Bilirubin Negative (NEGATIVE) 10/24/18 12:25 Urine Urobilinogen 0.2 E.U./dL (<1 E.U./dL) 10/24/18 12:25 Ur Leukocyte Esterase Negative Agustin/uL (NEGATIVE) 10/24/18 12:25 Urine RBC 5 - 10 /hpf (0-2) H 10/24/18 12:25 Urine WBC 0 - 2 /hpf (0-6) 10/24/18 12:25 Ur Epithelial Cells None /hpf (0-5) 10/24/18 12:25 Urine Bacteria Mod /hpf (NONE) 10/24/18 12:25 Urine Other Fiber /hpf 10/21/18 14:30 Urine Eosinophils Negative 10/25/18 03:30 Ur Random Creatinine 83 mg/dL (20-320) 10/24/18 12:25 U Random Total Protein 119 mg/g creat (22-128) 10/24/18 12:25 Ur Random Sodium 80 meq/L 10/24/18 12:25 Urine Total Volume 0.8 mg/dL 10/24/18 12:25 Microalb/Creat Ratio 10 (<30) 10/24/18 12:25 Urine Opiates Screen Negative (NEGATIVE) 10/21/18 14:40 Urine Methadone Screen Negative (NEGATIVE) 10/21/18 14:40 Ur Barbiturates Screen Negative (NEGATIVE) 10/21/18 14:40 Ur Phencyclidine Scrn Negative (NEGATIVE) 10/21/18 14:40 Ur Amphetamines Screen Negative (NEGATIVE) 10/21/18 14:40 U Benzodiazepines Scrn Negative (NEGATIVE) 10/21/18 14:40 U Oth Cocaine Metabols Negative (NEGATIVE) 10/21/18 14:40 U Cannabinoids Screen Negative (NEGATIVE) 10/21/18 14:40 Hep Bs Antigen Negative (NEGATIVE) 10/24/18 07:00 Hep Bs Antibody Negative (NEGATIVE) 10/24/18 07:00 Hep B Core IgM Ab Negative (NEGATIVE) 10/24/18 07:00 Hepatitis C Antibody Negative (NEGATIVE) 10/24/18 07:00 HIV 1&2 Ag/Ab, 4th Gen Nonreactive (Nonreactive) 10/24/18 10:05 - Hospital Course Hospital Course: Upon Admission: 77-year-old male with past medical history of hypertension and diabetes type 2 presents with bilateral lower extremity pain, erythema, and ulcer. Patient states that over the past 4-6 weeks the pain on both of his legs has become progressively worse. Now he also sees an area of erythema with worsening tenderness which prompted him to come to the emergency room. Patient states that the pain is worse in his left leg, and now there appears to be an ulcer on his foot. He does state that at times he sees a data developer at the [facility]. Pt is an extremely poor historian, is not able to provide PMD name, pharmacy or relative contact information. Pt does not recall home medication list and has been non-compliant with home medications. Hospital Course: Pt was evaluated and treated for b/l LE cellulitis. ID was consulted and he was placed on antibiotics throughout hospital stay. Wound culture grew pseudomonas. He was covered with ceftraroline and eventually transitioned to ciprofloxacin. Several imaging studies were performed for b/l LE, which revealed PAD as a possible source for ulcers/cellulitis. IR was consulted and evaluated pt for possible intervention. Conservated management was advised. During hospital course, pt developed urinary retention and developed TOVA. Hall catheter was placed which subseqently improved TOVA. Hall was kept in placed as patient failed several voiding trials. Urology was consulted, who recommended maintaining hall catheter, with follow-up outpatient. Pt to maintain hall, with hall bag attached to leg. Nephrology was also consulted for management of TOVA. Pts clinical course had improved, and pt was recommending by PT to go to [facility] for further rehab Upon discharge: Pt is doing well. Denying acute complaints. He has a hall catheter in place draining clear/yellow fluid. He is tolerating diet, and was encouged on po fluid intake. He is hemodynamically stable. Labs improved. Medication reconciliation was performed. Pt is a very poor historian and was unable to recall the name of his PMD, the name of pharmacy which he gets his medications filled, or the names of any medications filled. Close friends of pt were called to obtain information about home medications, however information was unable to be attained. Pt was started on antihypertensives during hospital course, and is to be continued on these medications upon discharge to [facility]. -----Imaging Below----- Renal artery Duplex: 1. The main renal arteries are well visualized. 2. No sonographically significant stenosis is identified. 3. The right renal parenchyma is normal. The left renal parenchyma is somewhat thin with prominent sinus fat. There are no solid renal masses, abnormal calcifications or hydronephrosis noted. Bladder U/S: Prevoid urinary bladder: 576.2 mL Postvoid urinary bladder: 389.8 mL Urinary bladder wall appears thickened measuring up to approximately 4 mm. Recommend correlation with urinalysis. No significant pelvic free fluid identified. Ureteral jets were not demonstrated on limited provided images Echo There is mild concentric left ventricular hypertrophy. The left ventricular function is normal Ankle Xray: Normal bilateral ankle radiographs. Right Foot: Severe degenerative changes are seen at the midfoot at the base of the 1st through 4th metatarsals Tib/fib Xray: Unremarkable radiographs of the bilateral tibia and fibula B/l U/S LE arterial 1. Moderately abnormal ABIs at rest 2. Bilateral SFA disease. 3. Bilateral popliteal, trifurcation, and/or tibial disease CXR: No active disease. Renal U/S Unremarkable renal sonogram. B/L U/S LE venous: No sonographic evidence for deep venous thrombosis in the visualized segments of both lower extremities Discharge Exam - Head Exam Head Exam: NORMAL INSPECTION, NORMOCEPHALIC - Eye Exam Eye Exam: EOMI, Normal appearance - ENT Exam ENT Exam: Mucous Membranes Moist, Normal Exam - Neck Exam Neck exam: Normal Inspection - Respiratory Exam Respiratory Exam: NORMAL BREATHING PATTERN, UNREMARKABLE - Cardiovascular Exam Cardiovascular Exam: REGULAR RHYTHM, +S1, +S2 - GI/Abdominal Exam GI & Abdominal Exam: Soft, Unremarkable - Exam Additional comments: hall in place draining clear/yellow fluid - Extremities Exam Additional comments: well healed ulcers in place with dressing c/d/i on L leg - Back Exam Back exam: NORMAL INSPECTION - Neurological Exam Neurological exam: Alert, Oriented x3 - Psychiatric Exam Psychiatric exam: Normal Affect, Normal Mood - Skin Skin Exam: Dry, Warm Discharge Plan - Follow Up Plan Condition: STABLE Disposition: REHAB FACILITY/REHAB UNIT Instructions: Hall Catheter, Male, Urinary Retention (DC), Cellulitis (DC), Cellulitis (GEN), Peripheral Artery Disease (DC), Peripheral Artery Disease (GEN), Hypertension (DC) Additional Instructions: Please continue taking your medications while in the subacute rehab facility Please follow up with your primary care doctor within 3-5 days of being discharged from the hospital Please follow up with your data developer (foot doctor) within 1 week of discharge from the hospital Please follow up with your urologist within 1 week of discharge from the hospital Please discuss all your medications with your doctor If your symptoms return, or you experience new symptoms, please go to the nearest emergency room Referrals: Francisco Ray MD [Staff Provider] - Jacky Johnson MD [Staff Provider] - Aliya Matthews DPM [Staff Provider] -
--- NOTE | 2018-10-28 14:40 | PN ---
DATE: 10/28/2018 SUBJECTIVE: This is a 77-year-old male seen at bedside for bilateral lower extremity weeping and ulcerations. The patient states that he is feeling much better. He is presently on Cipro as per Infectious Disease and he will be finishing a short course of antibiotics. PHYSICAL EXAMINATION: VITAL SIGNS: Reviewed. His temperature is 98. His blood pressure is 150/80 and respirations were 18. LABORATORY DATA: Reviewed. His white blood cell count is 6. The H and H is 12.2 and 38.6 respectively and the platelets are 195. His ESR was noted at 34 upon admission. The patient's chemistry shows a BUN and creatinine of 41 and 1.9 today. His glucose is within normal limits. Clinically, he is much improved. He has 2/4 palpable pedal pulses to the lower extremities, the edema has all resolved, and he is left with secondary scaling to both feet and lower extremities, bilateral. All the ulcerations have gone on to heal. There is no drainage on the dressings at this time. ASSESSMENT: Stasis edema, most likely secondary to chronic kidney disease/dependency. PLAN OF TREATMENT: Dressings were removed. His legs were cleansed and Lotrimin and a lubricant ointment was placed on both feet and legs. His legs were left open to air and he will be seen in followup. Aliya Matthews DPM
--- NOTE | 2018-10-28 14:52 | CP.PCM.PN ---
Subjective - Date & Time of Evaluation Date of Evaluation: 10/28/18 Time of Evaluation: 14:52 - Subjective Subjective: Nephrology Consultation Note: Assessment: stable Acute Kidney Injury (N17.9) likely due to urine retention. also hemodynamic inju ry due to BP fluctuations contributed: improving Diabetic chronic Kidney Disease (E11.22) Hypertensive Chronic Kidney Disease (I12.9) Chronic Kidney Disease (N18.3) Stage 3 with ? mg proteinuria (R80.9) likely due to DM/HTN HTN urgency, PVD, cellulitis mild aspen LVH vit D def Plan No acute need for renal replacement therapy at this time. Hypertension control with meds as ordered. Maintain hemodynamics stable. Avoid hypotension. Patient not on ACEI/ARB due to recent TOVA (Can resume now). added labetalol. can give prn hydralazine Monitor Input/Output, daily weights and renal function with basic metabolic panel started flomax. continue with hall. consider urology eval weekly Vit D added IVF as NS for 1 L while in hospital Check urine analysis, spot protein/creatinine, albumin/creatinine ratio, urine for eosinophils. bladder sonogram Secondary HTN work up with plasma renin/aldosterone, and renal artery Doppler to r/o renal artery stenosis so far neg. plasma metanephrine pending results Dose meds/antibiotics for reduced GFR. Avoid fleets enema/magnesium based laxatives. Avoid nephrotoxins/NSAIDs/ iodinated contrast (unless needed emergently) Glycemic control Further work up/management as per primary team Thanks for allowing me to participate in care of your patient. Will follow patient with you. Please call if any Qs. had d/w team Dr Jacky Johnson Office: [phone] Chief Complaint; legs Reason for consult: Acute Kidney Injury HPI: Pt is a 77 M with hx of diabetes Mellitus (7 years), hypertension (7 years) presented with complaints of leg pain and found to have PVD, cellulitis, also with HTN urgency. developed TOVA hence renal consulted Denies OTC/herbal meds or NSAIDs No recent iodinated contrast exposure. No obvious episodes of low BP. BP was 230s range when came pt reported difficulty in urination. hall catheter placed and apprx 1L urine output soon c/o nocturia prior to this ROS: Cardiovascular: No chest pain. Pulmonary: No shortness of breath Gastrointestinal: denies abdominal pain No nausea. No vomiting. Genitourinary: No pain while urinating. Denies blood in urine. has hall. failed voiding trial All other negative except as mentioned in HPI Physical Examination: General Appearance: Comfortable, in no acute respiratory distress, co-operative . irritable Vitals reviewed and noted as below Head; Atraumatic, normocephalic ENT: no ulcers no thrush. Tongue is midline. Oropharynx: no rash or ulcers. EYES: Pupils are equal, round and reactive to light accommodation. Eye muscles and extraocular movement intact. Sclera is anicteric. Neck; supple no lymphadenopathy, no thyromegaly or bruit Lungs: Normal respiratory rate/effort. Breath sounds bilateral equal and clear Heart: Normal rate. s1s2 normal. No rub or gallop. Extremities: no edema. No varicose veins. chronic leg changes. has overlying dressing Neurological: Patient is alert, awake and oriented to person, place and time. No focal deficit. Strength bilateral appropriate and equal Skin: Warm and dry. Normal turgor. No rash. Palpitation: Normal elasticity for age Abdomen: Abdomen is soft. Bowel sounds +. There is no abdominal tenderness, no guarding/rigidity no organomegaly Psych: limited insight and irritable MSK: no joint tenderness or swelling. Digits and nails normal, no deformity : kidney or bladder not palpable. has hall Labs/imaging reviewed. Past medical history, past surgical history, family history, social history, allergy reviewed and noted as below Family hx: no hx of CKD. Rest non-contributory renal sono unremarkable CXR no effusions urine tox neg TSH 1.6 UA SG 1.020 30 prot no blood echo; mild conc LVH Objective - Vital Signs/Intake and Output Vital Signs (last 24 hours): Temp Pulse Resp BP Pulse Ox 98 F 63 18 150/83 96 10/28/18 06:00 10/28/18 10:53 10/28/18 06:00 10/28/18 10:54 10/28/18 06:00 Intake and Output: 10/28/18 10/28/18 06:59 18:59 Intake Total 360 Output Total 1200 Balance -840 - Medications Medications: Current Medications Acetaminophen (Tylenol 325mg Tab) 650 mg PO Q6H PRN PRN Reason: Pain, Mild (1-3) Last Admin: 10/21/18 16:59 Dose: 650 mg Amlodipine Besylate (Norvasc) 5 mg PO DAILY [facility] Aspirin (Ecotrin) 81 mg PO DAILY [facility] Last Admin: 10/28/18 10:52 Dose: 81 mg Atorvastatin Calcium (Lipitor) 40 mg PO DIN [facility] Last Admin: 10/27/18 17:43 Dose: 40 mg Betamethasone/Clotrimazole (Lotrisone) 0 gm TOP BID [facility] Last Admin: 10/28/18 10:59 Dose: 1 applic Ergocalciferol (Drisdol 50,000 Intl Units Cap) 1 cap PO Q7D [facility] Last Admin: 10/25/18 15:24 Dose: 1 cap Heparin Sodium (Porcine) (Heparin) 5,000 units SC Q8 [facility]; Protocol Last Admin: 10/28/18 05:49 Dose: 5,000 units Hydralazine HCl (Apresoline) 25 mg PO Q4 PRN PRN Reason: Other Sodium Chloride (Sodium Chloride 0.9%) 1,000 mls @ 75 mls/hr IV .[id number] [facility] Stop: 10/29/18 10:16 Last Admin: 10/28/18 10:55 Dose: 75 mls/hr Labetalol HCl (Trandate) 200 mg PO BID [facility] Last Admin: 10/28/18 10:53 Dose: 200 mg Lisinopril (Zestril) 20 mg PO DAILY [facility] Last Admin: 10/23/18 09:59 Dose: 20 mg Multi-Ingredient Ointment (Hydrophor Oint) 0 gm TOP Q6H [facility] Last Admin: 10/28/18 10:57 Dose: 1 applic Mupirocin (Bactroban Ointment) 0 gm TOP BID [facility] Last Admin: 10/28/18 10:58 Dose: 1 applic Nystatin (Nystop Topical Powder) 0 gm TOP DAILY [facility] Last Admin: 10/28/18 10:59 Dose: 1 applic Pantoprazole Sodium (Protonix Ec Tab) 40 mg PO 0600 [facility] Last Admin: 10/28/18 05:49 Dose: 40 mg Tamsulosin HCl (Flomax) 0.4 mg PO DAILY [facility] Last Admin: 10/28/18 10:52 Dose: 0.4 mg Tramadol HCl (Ultram) 50 mg PO TID PRN PRN Reason: Pain, severe (8-10) Last Admin: 10/27/18 02:23 Dose: 50 mg - Labs Labs: 10/28/18 06:20 10/28/18 06:20 PT 12.5 SECONDS (9.4-12.5) 10/21/18 11:20 INR 1.11 10/21/18 11:20 APTT 35.0 Seconds (26.9-38.3) 10/21/18 11:20
[2018-10-28 14:58] VITALS: BP 94/59; PULSE 60; RESP 20; O2SAT 98
--- NOTE | 2018-10-28 20:31 | PN ---
DATE: 10/28/2018 SUBJECTIVE: The patient is seen earlier today in room 564, bed 2. No fevers. No chills. No nausea. No vomiting. Appeared to be comfortable. PHYSICAL EXAMINATION: VITAL SIGNS: Temperature is 98, blood pressure is 100/60, respiratory rate is 20, and heart rate is 60. HEENT: Unremarkable. NECK: Supple. LUNGS: Decreased breath sounds. HEART: Normal S1 and S2. ABDOMEN: Soft. EXTREMITIES: Examination of legs, legs are much improved. LABORATORY DATA: Reveals a white count of , hemoglobin of 12, BUN of 41, and creatinine of 1.9. Urinalysis is noted. Serology is noted. ASSESSMENT AND PLAN: This is a 77-year-old male with Pseudomonas, left leg cellulitis that is resolved at this point and had adequate therapy. We will discontinue the Cipro. Case discussed with Judy Herring, the nurse practitioner in charge and the patient will follow up with PMD as an outpatient. Fantasma Lynne MD
== END 2018-10-28 17:16 | DRG 300 ==
LOC: ED 10:30 → ERH 14:38 → ICU 16:14 → 2RNO 10-22 17:55 → 5RNO 10-24 16:44
PROVIDERS: ADMIT Internal Medicine; ATTEND Hospitalist
DX: E11.51 Type 2 diabetes mellitus with diabetic peripheral angiopathy without gangrene (principal); L03.115 Cellulitis of right lower limb; L97.929 Non-pressure chronic ulcer of unspecified part of left lower leg with unspecified severity; L97.919 Non-pressure chronic ulcer of unspecified part of right lower leg with unspecified severity; N17.9 Acute kidney failure, unspecified; N13.8 Other obstructive and reflux uropathy; L03.116 Cellulitis of left lower limb; I16.0 Hypertensive urgency; R60.9 Edema, unspecified; I73.9 Peripheral vascular disease, unspecified; I12.9 Hypertensive chronic kidney disease with stage 1 through stage 4 chronic kidney disease, or unspecified chronic kidney disease; N18.9 Chronic kidney disease, unspecified; E11.22 Type 2 diabetes mellitus with diabetic chronic kidney disease; E11.65 Type 2 diabetes mellitus with hyperglycemia; N18.3 Chronic kidney disease, stage 3 (moderate); N40.1 Benign prostatic hyperplasia with lower urinary tract symptoms; E55.9 Vitamin D deficiency, unspecified; Z91.19 Patient's noncompliance with other medical treatment and regimen; B96.5 Pseudomonas (aeruginosa) (mallei) (pseudomallei) as the cause of diseases classified elsewhere; I27.20 Pulmonary hypertension, unspecified; I35.1 Nonrheumatic aortic (valve) insufficiency; I87.8 Other specified disorders of veins; I99.8 Other disorder of circulatory system; R32 Unspecified urinary incontinence; Z79.899 Other long term (current) drug therapy; Z86.73 Personal history of transient ischemic attack (TIA), and cerebral infarction without residual deficits; Z91.14 Patient's other noncompliance with medication regimen